=== PATIENT | female | born 1945 | race Caucasian/White ===

== ENCOUNTER → 2016-11-04 | Outpatient (CLI) | payer MEDICARE, OTHER ==
[~2016-11-04] MED LIST: ASP81TEC PO; ASPI-892; ASPI81TA19 PO; BISO1TAB PO; BISO1TAB6; BISO5TAB8 PO; CEPH500C PO; CITA10TA PO; CITA20TA12 PO; CITA40TA19 PO; CLOP75TA; CLPD75T PO; CODE-54 PO; ESCT10T; FEXO-104 PO; FEXO180T; FOLI1TAB9 PO; FRSM40T PO; HYDR1TAB PO; INSU100C4 SQ; INSU100V6; LEVE1U SQ; LEVO250T46; METF-380 PO; METF1000 PO; METF500T; METO100T PO; MTF500T PO; MTP25TSR PO; MULT-608; MULT-608 PO; MULT1TAB5 PO; NITR0.4T SL; ONDA4TAB11 PO; POTA10CA43 PO; SIMV20TA3 PO; SIMV40TA2; SIMV40TA4 PO; SITA100T PO; SITA1TAB6 PO; SITA25TA PO
--- OUTSIDE RECORDS SUMMARY | 2016-11-04 10:54 | XMS REPORT | Continuity of Care Document ---
Author Author [facility] Organization [facility] Address Unknown Phone Unavailable Care Team Providers Care Prefabricator Name Role Phone AYAH DARNELL MD PCP Insurance Providers Payer Name Policy Number Subscriber Name Relationship s Medicare [id number] Ac Garcia 19 Self / Same As Patient [facility] [place] [id number] Ac Garcia 18 Self / Same As Patient Advance Directives Directive Response Recorded Date/Time Advance Directives Yes 01/06/15 7:34am Health Care Power of Manager Marketing Sales No 01/06/15 7:34am Organ Donor No 01/06/15 7:34am Resuscitation Status Full Code 01/06/15 7:34am Problems No known problems or medical conditions. Medications Medication Dose Route Sig Days/Qty Instructions Order Date Discontinued Date Status Aspirin 08/18/09 09/08/11 Discontinued Clopidogrel Bisulfate 08/18/09 09/08/11 Discontinued Bisoprolol Fumarate/HCTZ 08/18/09 11/23/11 Discontinued Simvastatin 08/18/09 11/23/11 Discontinued Metformin HCl 08/18/09 09/08/11 Discontinued Insulin Glargine,Hum.rec.anlog 08/18/09 11/23/11 Discontinued Fexofenadine HCl 08/18/09 11/23/11 Discontinued Multivitamins 08/18/09 11/23/11 Discontinued Escitalopram Oxalate 08/18/09 11/23/11 Discontinued Metformin HCl (Glucophage) 1 Each PO DAILY 09/08/11 09/08/11 Discontinued Aspirin 81 Mg PO DAILY 09/08/11 11/23/11 Discontinued Multiv,Ca,Iron,Min/Fa/Phytoste 1 Each PO DAILY 09/08/11 09/08/11 Discontinued Metoprolol Tartrate 1 Each PO DAILY 09/08/11 09/08/11 Discontinued Furosemide 40 Mg PO weekly 09/08/11 11/23/11 Discontinued Potassium Chloride (Micro K) 1 Each PO weekly 09/08/11 11/23/11 Discontinued Sitagliptin Phos/Metformin Hcl 1 Each PO TWICE A DAY WITH MEALS 09/0811/23/11 Discontinued Metformin HCl (Glucophage) 1 Each PO TWICE A DAY WITH MEALS 11/23/11 01/06/15 Discontinued Fexofenadine HCl 180 Mg PO DAILY 11/23/11 Active Bisoprolol Fumarate 5 Mg PO DAILY 11/23/11 01/06/15 Discontinued Simvastatin 20 Mg PO BEDTIME 11/23/11 01/06/15 Discontinued Citalopram Hydrobromide 10 Mg PO DAILY 11/23/11 01/06/15 Discontinued Sitagliptin Phosphate 1 Each PO DAILY 11/23/11 01/06/15 Discontinued Insulin Glargine,Hum.rec.anlog 36 Unit SQ AM 11/23/11 01/06/15 Discontinued Multivitamins 1 Tab PO DAILY 11/23/11 01/06/15 Discontinued Aspirin 81 Mg PO DAILY 11/23/11 01/06/15 Discontinued Cephalexin Monohydrate (Keflex) 1 Each PO THREE TIMES A DAY 7 Days 27/0908/13/12 Discontinued Acetaminophen/Hydrocodone Bitart 1 - 2 Each PO Q4HR PRN 30 Qty 08/13/12 Discontinued Acetaminophen/Codeine Phosphate 1 - 2 Tab PO EVERY 6 HOURS PRN 45 Qty 08/13/12 08/16/12 Discontinued Ondansetron 4 Mg PO EVERY 6 HOURS PRN 15 Qty 08/13/12 08/16/12 Discontinued Simvastatin 40 Mg PO DAILY 01/06/15 Active Sitagliptin Phosphate 100 Mg PO DAILY 01/06/15 Active Metformin Hcl 1,000 Mg PO TWICE A DAY 01/06/15 Active Bisoprol/Hydrochlorothiazide 0.5 Mg PO DAILY TAKES 1/2 (10-6.25MG) TABLET 01/06/15 01/06/15 Discontinued Folic Acid/Mv,Fe,Other Min 1 Tab.chew PO DAILY 01/06/15 Active Aspirin 81 Mg PO DAILY 01/06/15 Active Insulin Detemir 12 Unit SQ BEDTIME 01/06/15 Active Insulin Detemir 50 Unit SQ DAILY 01/06/15 Active Nitroglycerin 0.4 Mg SL DIRECTED PRN CHEST PAIN CHEST PAIN Active Citalopram Hydrobromide 40 Mg PO DAILY 01/06/15 Active Metoprolol Succinate (Metoprolol ER 25mg) 12.5 Mg PO DAILY 01/06/15 Active Clopidogrel Bisulfate 75 Mg PO DAILY 30 Qty 01/07/15 Active Social History Social History Problem Response Recorded Date/Time Recent Foreign Travel No 01/06/2015 7:34am Smoking Status Never a Smoker 01/06/2015 7:35am Do you dip or chew tobacco? No 01/06/2015 7:35am Query Response Start Date Stop Date Smoking Status Never a Smoker Hospital Discharge Instructions No hospital discharge instructions. Plan of Care No plan of care. Functional Status Query Response Date Recorded Comprehension Ability Understands Concepts January 07, 2015 8:00am Allergies, Adverse Reactions, Alerts Allergen Type Severity Reaction Status Last Updated propoxyphene HCl Adverse Reaction Mild NAUSEA Active 11/28/11 Codeine Allergy N/V Active 08/16/12 Immunizations Name Given Type Date of Influenza Vaccine 07/02/12 Historical pneumococcal polysaccharide PPV23 01/07/15 Administered Vital Signs Acute Vital Signs Vital Response Date/Time Temperature (Fahrenheit) 97.4 degrees F (97.6 - 99.5) Temperature (Calculated Celsius) 36.93797 degrees C (36.4 - 37.5) Temperature Source Tympanic Pulse Rate (adult) 72 bpm (60 - 90) Respiratory Rate 20 bpm (12 - 24) O2 Sat by Pulse Oximetry 96 % (88 - 100) Blood Pressure 143/87 mm Hg Pain Pain Intensity 0 Height (Feet) 5 feet Height (Inches) 9.00 inches Height (Calculated Centimeters) 175.522449 cm Weight (Pounds) 218 pounds Weight (Calculated Grams) 44937.138 gm Weight (Calculated Kilograms) 98.077702 kilograms Calculated BMI 32.19 Results Laboratory Results Test Name Result Units Flags Reference Collection Date/Time Result Date/ Time Comments White Blood Count 4.5 10^3/uL 4.3-11.0 01/07/2015 5:01/07/2015 6: 18am Red Blood Count 4.03 10^6/uL L 4.35-5.85 01/07/2015 5:01/07/2015 6: 18am Hemoglobin 12.6 G/DL 11.5-16.0 01/07/2015 5:01/07/2015 6:18am Hematocrit 37 % 35-52 01/07/2015 5:01/07/2015 6:18am Mean Corpuscular Volume 93 FL 80-99 01/07/2015 5:01/07/2015 6: 18am Mean Corpuscular Hemoglobin 31 PG 25-34 01/07/2015 5:01/07/2015 6: 18am Mean Corpuscular Hemoglobin Concent 34 G/DL 32-36 01/07/2015 5:05/2015 6:18am Red Cell Distribution Width 14.0 % 10.0-14.5 01/07/2015 5:2014 6:18am Platelet Count 169 10^3/uL 130-400 01/07/2015 5:01/07/2015 6:18am Mean Platelet Volume 11.2 FL H 7.4-10.4 01/07/2015 5:01/07/2015 6: 18am Prothrombin Time 11.3 SEC L 12.2-14.7 01/06/2015 7:45am 01/06/2015 8: 07am INR Comment 0.8 0.8-1.4 01/06/2015 7:45am 01/06/2015 8:07am INTERPRETIVE DATA SUGGESTED THERAPEUTIC RANGE FOR INR'S: VENOUS THROMBOSIS, PULMONARY EMBOLISM, OR PREVENTION OF SYSTEMIC EMBOLISM (EG. IN ATRIAL FIBRILLATION): 2.0 - 3.0 MECHANICAL PROSTHETIC HEART VALVES: 2.5 - 3.5* *NOTE: INR'S UP TO 4.5 MAY BE NECESSARY IN SELECTED GROUPS OF HIGH RISK PATIENTS. [employer] CONSENSUS CONFERENCE ON ANTITHROMBOTIC THERAPY (2000). Activated Partial Thromboplast Time 28 SEC 24-35 01/06/2015 7:45am 04/2015 8:07am Sodium Level 138 MMOL/L 135-145 01/07/2015 5:01/07/2015 6:25am Potassium Level 4.3 MMOL/L 3.6-5.0 01/07/2015 5:01/07/2015 6:25am Chloride Level 107 MMOL/L 98-107 01/07/2015 5:01/07/2015 6:25am Carbon Dioxide Level 23 MMOL/L 21-32 01/07/2015 5:01/07/2015 6: 25am Blood Urea Nitrogen 13 MG/DL 7-18 01/07/2015 5:01/07/2015 6:25am Creatinine 0.77 MG/DL 0.60-1.30 01/07/2015 5:01/07/2015 6:25am BUN/Creatinine Ratio 17 01/07/2015 5:01/07/2015 6:25am Estimat Glomerular Filtration Rate > 60 01/07/2015 5:2014 6:25am GFR INTERPRETIVE DATA UNITS FOR ESTIMATED GFR (eGFR): mL/min/1.73 M2 REFERENCE RANGE FOR ESTIMATED GFR (eGFR) eGFR NORMAL eGFR >60 MODERATELY DECREASED eGFR 30-59 SEVERLY DECREASED eGFR 15-29 KIDNEY FAILURE <15 (OR DIALYSIS) Glucose Level 232 MG/DL H 70-105 01/07/2015 5:01/07/2015 6:25am Glucometer 221 MG/DL H 70-110 01/07/2015 5:2201/07/2015 5:27am Calcium Level 8.4 MG/DL L 8.5-10.1 01/07/2015 5:01/07/2015 6:25am Total Bilirubin 0.5 MG/DL 0.1-1.0 01/06/2015 7:4501/06/2015 8:13am Alkaline Phosphatase 52 U/L 40-136 01/06/2015 7:4501/06/2015 8:13am Aspartate Amino Transf (AST/SGOT) 25 U/L 5-34 01/06/2015 7:452014 8:13am Alanine Aminotransferase (ALT/SGPT) 32 U/L 0-55 01/06/2015 7:4501/06 8:13am Total Protein 7.0 G/DL 6.4-8.2 01/06/2015 7:45am 01/06/2015 8:13am Albumin 4.1 G/DL 3.2-4.5 01/06/2015 7:45am 01/06/2015 8:13am Triglycerides Level 180 MG/DL H <150 01/06/2015 7:45am 01/06/2015 8:13am Cholesterol Level 156 MG/DL < 200 01/06/2015 7:45am 01/06/2015 8:13am HDL Cholesterol 47 MG/DL 40-60 01/06/2015 7:45am 01/06/2015 8:13am LDL Cholesterol Direct 86 MG/DL 1-129 01/06/2015 7:45am 01/06/2015 8: 13am VLDL Cholesterol 36 MG/DL 5-40 01/06/2015 7:45am 01/06/2015 8:13am Procedures Procedure Status Date Provider(s) Tracing only of electrocardiogram completed 01/06/15 EDA LANG MD [facility] CCDS Tracing only of electrocardiogram completed 01/06/15 EDA LANG MD [facility] CCDS Encounters Encounter Location Date/Time Departed [facility] 01/06/15 7:19am
--- NOTE | 2016-11-08 07:49 | ECHOCARDIOGRAPHY REPORT ---
PROCEDURE PHYSICIAN: EDA BURGESS DATE OF PROCEDURE: 11/04/2016 TWO DIMENSIONAL ECHOCARDIOGRAM REPORT PRIMARY PHYSICIAN: Dr. Hargrove OTHER PHYSICIAN: Dr. Burgess REFERRING PHYSICIAN: ORDERING PHYSICIAN: Tegan Palomo APRN INDICATION FOR THE PROCEDURE: 1. Coronary artery disease. 2. Hypertension. MEASUREMENTS DERIVED VALUES LV DIAMETER (LAX) NORMALS NORMALS Diastolic 4.6 (3.6-5.2) Eject. Fract. (60%+/-6%) Systolic (2.3-3.9) Diastolic Vol. % Shortening (0.22-0.42) Systolic Vol. Aortic Root 3.6 IVS THICKNESS Diastolic 1.2 (0.6-1.1) LVPW THICKNESS Diastolic 1.1 (0.6-1.1) LA DIAMETER Systolic 3.5 (2.1-3.7) DESCRIPTION: Two-dimensional echocardiography shows normal global left ventricular systolic function with normal regional wall motion. Aortic, mitral and tricuspid valve leaflets show good leaflet excursion. There is no significant pericardial effusion. Doppler imaging shows trivial to mild mitral and tricuspid regurgitation. There is no Doppler evidence of any significant valvular stenosis. Pulmonary artery systolic pressure is estimated to be 25 to 30 mmHg. Good subcostal views are not available. The study is not adequate for evaluation for intracardiac shunt. CONCLUSIONS: 1. Normal global left ventricular systolic function with an ejection fraction of 60%. 2. Trivial to mild mitral and tricuspid regurgitation. 3. No evidence of any significant valvular stenosis. 4. Pulmonary artery systolic pressure is estimated to be approximately 25 to 30 mmHg. Job ID: [id number] Dictated Date: 11/07/2016 12:54:40 Financial Institution Manager Date: 11/08/2016 07:44:47 / josé
== END ==
LOC: CARD 10:50
PROVIDERS: ATTEND Nurse Practitioner Family
DX: I25.10 Atherosclerotic heart disease of native coronary artery without angina pectoris (principal); I10 Essential (primary) hypertension; I34.0 Nonrheumatic mitral (valve) insufficiency; I07.1 Rheumatic tricuspid insufficiency
CPT/HCPCS: 93306

== ENCOUNTER → 2017-05-25 | Outpatient (CLI) | payer MEDICARE, OTHER ==
[~2017-05-25] VITALS: Ht 175.3 cm; Wt 105.7 kg
[~2017-05-25] MED LIST changes: +REGADENOSON 0.4 MG/5 ML SYR (LEXISCAN) IV ONE
[2017-05-25] MEDS: CATHETER FLUSH 10 ML SYR IV PRN ×2 (08:22→09:39)
[2017-05-25 09:30] VITALS: BP 151/81
--- NOTE | 2017-05-26 12:19 | STRESS TEST ---
DATE OF SERVICE: 05/25/2017 Baseline images were carried out after injection of 10.49 mCi of Technetium-99m Tetrofosmin. This was followed by 0.4 mg of regadenoson and 29.9 mCi Technetium-99m Tetrofosmin for stress imaging. The electrocardiogram showed sinus rhythm at baseline and it did not change significantly with the regadenoson infusion. A few isolated premature supraventricular contractions were seen. The patient did not report symptoms and tolerated the procedure well. Review of images at rest and following stress does not indicate any distinct perfusion defects consistent with myocardial ischemia or infarction. The diaphragmatic wall of the left ventricle appears attenuated both at rest and following regadenoson infusion, but gated images show normal regional wall motion, including the diaphragmatic wall of the left ventricle. Thus, this appears to be diaphragmatic attenuation due to patient's body habitus. Left ventricular ejection fraction is calculated to be 78%. End-diastolic volume is 42 mL. TID is absent (1.08). CONCLUSIONS: 1. No evidence of significant myocardial ischemia or infarction. 2. Normal regional wall motion. 3. Normal global left ventricular systolic function with a calculated ejection fraction of 78%. 4. Normal left ventricular cavity size. Job ID: [id number] DocumentID: [id number] Dictated Date: 05/26/2017 09:31:18 Aircraft Maintenance Manager Date: 05/26/2017 09:47:52 Dictated By: EDA LANG MD, MA, FACP, FACC,
== END ==
LOC: CARD 08:05
PROVIDERS: ATTEND Nurse Practitioner Family
DX: I25.10 Atherosclerotic heart disease of native coronary artery without angina pectoris (principal); I10 Essential (primary) hypertension; I65.23 Occlusion and stenosis of bilateral carotid arteries; E11.9 Type 2 diabetes mellitus without complications
CPT/HCPCS: 78452; 93017

== ENCOUNTER 2018-03-01 10:56 | Inpatient (IN) | payer MEDICARE, OTHER ==
[~2018-03-01] VITALS: Ht 170.2 cm; Wt 104.9 kg
[~2018-03-01 10:56] MED LIST changes: -REGADENOSON 0.4 MG/5 ML SYR (LEXISCAN) IV ONE
[2018-03-01 11:49] LABS: BASOPHILS % (AUTO) 0 % (0-10); EOSINOPHILS # (AUTO) 0.1 10^3/uL (0.0-0.3); EOSINOPHILS % (AUTO) 2 % (0-10); HEMATOCRIT 39 % (35-52); HEMOGLOBIN 13.5 G/DL (11.5-16.0); LYMPHOCYTES # (AUTO) 1.1 X 10^3 (1.0-4.0); LYMPHOCYTES % (AUTO) 23 % (12-44); MEAN CORPUSCULAR HEMOGLOBIN 32 PG (25-34); MEAN CORPUSCULAR HGB CONC 34 G/DL (32-36); MEAN CORPUSCULAR VOLUME 93 FL (80-99); MEAN PLATELET VOLUME 10.8 FL (7.4-10.4); MONOCYTES # (AUTO) 0.5 X 10^3 (0.0-1.0); MONOCYTES % (AUTO) 10 % (0-12); NEUTROPHILS # (AUTO) 2.9 X 10^3 (1.8-7.8); NEUTROPHILS % (AUTO) 64 % (42-75); PLATELET COUNT 180 10^3/uL (130-400); RED BLOOD COUNT 4.22 10^6/uL (4.35-5.85); RED CELL DISTRIBUTION WIDTH 13.9 % (10.0-14.5); WHITE BLOOD COUNT 4.6 10^3/uL (4.3-11.0)
[2018-03-01 11:51] LABS: BILIRUBIN,URINE NEGATIVE (NEGATIVE); CLARITY,URINE CLEAR; COLOR,URINE YELLOW; GLUCOSE, URINE (UA) 3+ (NEGATIVE); KETONES,URINE NEGATIVE (NEGATIVE); LEUKOCYTE ESTERASE ,URINE NEGATIVE (NEGATIVE); NITRITE,URINE POSITIVE (NEGATIVE); PH,URINE 5 (5-9); PROTEIN,URINE 1+ (NEGATIVE); UROBILINOGEN,URINE NORMAL (NORMAL)
[2018-03-01 11:58] LABS: BACTERIA,URINE LARGE /HPF
[2018-03-01 12:03] LABS: FIBRIN DEGRADATION PRODUCTS 1.79 UG/ML (0.00-0.49); PROTHROMBIN TIME PATIENT 13.1 SEC (12.2-14.7)
[2018-03-01 12:06] LABS: ALANINE AMINOTRANSFERASE 30 U/L (0-55); ALKALINE PHOSPHATASE 64 U/L (40-136); BILIRUBIN,TOTAL 0.6 MG/DL (0.1-1.0); BUN/CREATININE RATIO 18; CALCIUM 9.1 MG/DL (8.5-10.1); CARBON DIOXIDE 23 MMOL/L (21-32); CHLORIDE 103 MMOL/L (98-107); CREATININE SERUM 1.01 MG/DL (0.60-1.30); GFR ESTIMATED 54; GLUCOSE 372 MG/DL (70-105); POTASSIUM 4.5 MMOL/L (3.6-5.0); SODIUM 136 MMOL/L (135-145); TOTAL PROTEIN 6.3 GM/DL (6.4-8.2)
--- NOTE | 2018-03-01 12:20 | Diagnostic Imaging Report ---
INDICATION: Depressed level of consciousness and confusion. Comparison is made with prior head CT from 05/13/2016. The ventricular size and sulcal pattern appear stable. Significant periventricular hypodensity is noted consistent with chronic microvascular ischemia. 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 This, however, did occur since the CT from May 2016. Probable infarct in the right carrillo radiata is again noted and similar to prior CT. No sulcal effacement, midline shift or hemorrhage is detected. Cisterns are patent. The visualized paranasal sinuses are clear. IMPRESSION: Chronic changes bilaterally. No acute intracranial process is detected. Results were called to the emergency department prior to this dictation. Dictated by: Dictated on workstation # [id number]
--- NOTE | 2018-03-01 12:31 | Diagnostic Imaging Report ---
INDICATION: Altered mental status, confusion. TECHNIQUE: Single frontal view of the chest. COMPARISON: 05/13/2016 FINDINGS: There is elevation of the right hemidiaphragm, otherwise lung volumes are normal. There is mild cardiomegaly with mild central vascular congestion. Sternotomy wires and post CABG changes are seen. There is no pleural effusion or pneumothorax. No focal pulmonary consolidation is seen. IMPRESSION: Mild cardiomegaly with mild central vascular congestion. Dictated by: Dictated on workstation # [id number]
[2018-03-01] MEDS ORDERED: cefTRIAXone INJECTION 1,000 MG in NS (IVPB) 50 ML IV ONE (13:15)
--- NOTE | 2018-03-01 13:26 | ED Neurological Problem ---
General Chief Complaint: Neuro-Stroke Like Symptoms Stated Complaint: AMS/CONFUSION Nursing Triage Note: PATIENT BROUGHT HERE BY FRIENDS. PATIENT STATES SHE KNOWS SHE IS CONFUSED. FRIENDS TELL ME THAT SHE IS NOT MAKING SENSE. AFTER QUESTIONING, THE PATIENT IS VERY SLOW TO RESPOND TO QUESTIONS AND DID NOT KNOW WHO THE PRESIDENT WAS, OR THE CURRENT MONTH OR YEAR. NO PHYSICAL SIGNS OF STROKE. LAST KNOWN WELL AT 7PM YESTERDAY. Nursing Sepsis Screen: No Definite Risk Source: patient, old records, other Exam Limitations: no limitations History of Present Illness Date Seen by Provider: March 01, 2018 Time Seen by Provider: 11:18 Initial Comments This 72-year-old woman presents to the emergency room with confusion. She arrived at her friend's home at 10:45 appearing confused. Her statements did not make sense in the context of their conversation. She was last known to be well at approximately 19:00 last night. On my assessment patient appears alert but is somewhat disoriented. When asked about her location she stated "[facility] [place] [facility]". She also stated this was the "6 month". A stroke activation was paged. Patient was not a TPA candidate as her last known well time was well beyond the treatment window. Patient denied any physical symptoms but did admit to feeling a little confused. Her NIH stroke score was 2. Patient does take insulin. Her fingerstick blood sugar on assessment was 355. Allergies and Home Medications Allergies Coded Allergies: codeine (Unverified Allergy, Unknown, N/V, 05/13/16) propoxyphene HCl (Verified Adverse Reaction, Mild, NAUSEA, 11/28/11) Home Medications Aspirin 81 Mg Chew, 81 MG PO DAILY, (Reported) Citalopram Hydrobromide 20 Mg Tablet, 20 MG PO DAILY, (Reported) Clopidogrel Bisulfate 75 Mg Tab, 75 MG PO DAILY Prescribed by: RAFAEL POLANCO on 01/07/15 0943 Fexofenadine Hcl 180 Mg Tablet, 180 MG PO DAILY, (Reported) Folic Acid/Mv,Fe,Other Min 1 Tab.chew Tab.chew, 1 TAB.CHEW PO DAILY, (Reported) Metformin Hcl 1,000 Mg Tablet, 1,000 MG PO BID, (Reported) Metoprolol Succinate 25 Mg Tab, 12.5 MG PO DAILY, (Reported) TAKES 1/2 (25MG) TABLET Nitroglycerin 0.4 Mg Tab.subl, 0.4 MG SL UD PRN for CHEST PAIN, (Reported) PLACE 1 TABLET UNDER TONGUE EVERY 5 MINUTES X 3 DOSES NEEDED FOR CHEST PAIN Simvastatin 40 Mg Tablet, 40 MG PO DAILY, (Reported) Sitagliptin Phosphate 100 Mg Tablet, 100 MG PO DAILY, (Reported) Patient Home Medication List Home Medication List Reviewed: Yes Review of Systems Constitutional: no symptoms reported Eyes: No Symptoms Reported Ears, Nose, Mouth, Throat: no symptoms reported Respiratory: no symptoms reported Cardiovascular: no symptoms reported Gastrointestinal: no symptoms reported Genitourinary: no symptoms reported Musculoskeletal: no symptoms reported Skin: no symptoms reported Psychiatric/Neurological: See HPI Endocrine: No Symptoms Reported Hematologic/Lymphatic: No Symptoms Reported Past Jzljliz-Szdxvm-Etldec Hx Patient Social History Alcohol Use: Regular Use Number of Drinks Today: 0 Alcohol Beverage of Choice: Wine Recreational Drug Use: No Smoking Status: Never a Smoker 2nd Hand Smoke Exposure: No Recent Foreign Travel: No Contact w/Someone Who Travel: No Recent Infectious Disease Expo: No Recent Hopitalizations: No Physical Abuse: No Sexual Abuse: No Immunizations Up To Date Tetanus Booster (TDap): Less than 5yrs Date of Pneumonia Vaccine: Jul 04, 2010 Date of Influenza Vaccine: Jul 02, 2012 Seasonal Allergies Seasonal Allergies: No Past Medical History Surgeries: Yes CABG, Coronary Stent, Orthopedic Respiratory: No Currently Using CPAP: No Currently Using BIPAP: No Cardiac: Yes (Carotid Dz) Coronary Artery Disease, Hypertension Neurological: No : No Reproductive Disorders: No Sexually Transmitted Disease: No Gastrointestinal: No Musculoskeletal: No Endocrine: Yes Diabetes, Insulin dep, Lupus Hearing Impairment: Hard of Hearing Cancer: No Psychosocial: No Nursing Suicide Risk Score: 0 Integumentary: No Blood Disorders: No Family Medical History Diabetes mellitus 19 FATHER G8 BROTHER Neoplasm 19 MOTHER ( with ca of bladder) Physical Exam Vital Signs Vital Signs - First Documented 03/01/18 03/01/18 11:06 12:12 Temp 96.1 Pulse 85 Resp 18 B/P (MAP) 161/87 (111) Pulse Ox 98 O2 Delivery Room Air Capillary Refill : Less Than 3 Seconds General Appearance: WD/WN, no apparent distress HEENT: PERRL/EOMI, normal ENT inspection, pharynx normal Neck: supple, normal inspection Respiratory: lungs clear, normal breath sounds, no respiratory distress, no accessory muscle use Cardiovascular: regular rate, rhythm, no edema, no murmur Gastrointestinal: normal bowel sounds, non tender, soft Extremities: normal inspection, no pedal edema 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 She identifies some objects during the NIH scoring as "monetary exclusions") Crainal Nerves: normal hearing, normal speech, PERRL Coordination/Gait: normal finger to nose Motor/Sensory: no motor deficit, no sensory deficit Skin: normal color, warm/dry Stroke NIH Stroke Scale Assessment Level of Consciousness: 0=Alert (0), Level of Consciousness-Questions: 1= Answers one question (1), LOC Commands: 0=Performs both tasks (0), Visual Morton : 0=No visual loss (0), Facial Movement (Facial Paresis): 0=Normal symmetrical mnt (0), Motor Function-Arms Right: 0=No drift (0), Motor Function-Arms Left: 0= No drift (0), Motor Function-Legs Right: 0=No drift (0), Motor Function-Legs Left: 0=No drift (0), Limb Ataxia: 0=Absent (0), Sensory: 0=Normal:no loss (0), Best Language: 1=Mild to moderat aphasia (1), Dysarthria: 0=Normal (0), Extinction & Inattention: 0=No abnormality (0), Total: 2 Progress/Results/Core Measures Results/Orders Lab Results Laboratory Tests Test 03/01/18 11:22 03/01/18 11:37 03/01/18 11:45 Range/Units Glucometer 355 H 70-110 MG/DL White Blood Count 4.6 4.3-11.0 10^3/uL Red Blood Count 4.22 L 4.35-5.85 10^6/uL Hemoglobin 13.5 11.5-16.0 G/DL Hematocrit 39 35-52 % Mean Corpuscular Volume 93 80-99 FL Mean Corpuscular Hemoglobin 32 25-34 PG Mean Corpuscular Hemoglobin Concent 34 32-36 G/DL Red Cell Distribution Width 13.9 10.0-14.5 % Platelet Count 180 130-400 10^3/uL Mean Platelet Volume 10.8 H 7.4-10.4 FL Neutrophils (%) (Auto) 64 42-75 % Lymphocytes (%) (Auto) 23 12-44 % Monocytes (%) (Auto) 10 0-12 % Eosinophils (%) (Auto) 2 0-10 % Basophils (%) (Auto) 0 0-10 % Neutrophils # (Auto) 2.9 1.8-7.8 X 10^3 Lymphocytes # (Auto) 1.1 1.0-4.0 X 10^3 Monocytes # (Auto) 0.5 0.0-1.0 X 10^3 Eosinophils # (Auto) 0.1 0.0-0.3 10^3/uL Basophils # (Auto) 0.0 0.0-0.1 10^3/uL Prothrombin Time 13.1 12.2-14.7 SEC INR Comment 1.0 0.8-1.4 Activated Partial Thromboplast Time 29 24-35 SEC D-Dimer 1.79 H 0.00-0.49 UG/ML Sodium Level 136 135-145 MMOL/L Potassium Level 4.5 3.6-5.0 MMOL/L Chloride Level 103 98-107 MMOL/L Carbon Dioxide Level 23 21-32 MMOL/L Anion Gap 10 5-14 MMOL/L Blood Urea Nitrogen 18 7-18 MG/DL Creatinine 1.01 0.60-1.30 MG/DL Estimat Glomerular Filtration Rate 54 BUN/Creatinine Ratio 18 Glucose Level 372 H 70-105 MG/DL Calcium Level 9.1 8.5-10.1 MG/DL Total Bilirubin 0.6 0.1-1.0 MG/DL Aspartate Amino Transf (AST/SGOT) 20 5-34 U/L Alanine Aminotransferase (ALT/SGPT) 30 0-55 U/L Alkaline Phosphatase 64 40-136 U/L Troponin I < 0.30 <0.30 NG/ML Total Protein 6.3 L 6.4-8.2 GM/DL Albumin 4.0 3.2-4.5 GM/DL Urine Color YELLOW Urine Clarity CLEAR Urine pH 5 5-9 Urine Specific [place] 1.020 1.016-1.022 Urine Protein 1+ H NEGATIVE Urine Glucose (UA) 3+ H NEGATIVE Urine Ketones NEGATIVE NEGATIVE Urine Nitrite POSITIVE H NEGATIVE Urine Bilirubin NEGATIVE NEGATIVE Urine Urobilinogen NORMAL NORMAL MG/DL Urine Leukocyte Esterase NEGATIVE NEGATIVE Urine RBC (Auto) NEGATIVE NEGATIVE Urine RBC NONE /HPF Urine WBC 2-5 /HPF Urine Squamous Epithelial Cells 2-5 /HPF Urine Crystals NONE /LPF Urine Bacteria LARGE H /HPF Urine Casts NONE /LPF Urine Mucus NEGATIVE /LPF Urine Culture Indicated YES My Orders Orders - BUCKY NORTH MD Cbc With Automated Diff (03/01/18 11:) Protime With Inr (03/01/18 11:27) Partial Thromboplastin Time (03/01/18 11:) Comprehensive Metabolic Panel (03/01/18:) Fibrin Degradation Products (03/01/18:) Troponin I (03/01/18 11:) Ua Culture If Indicated (03/01/18 11:) Chest 1 View, Ap/Pa Only (03/01/18:) Ekg Tracing (03/01/18:) Nothing By Mouth (03/01/18 Dinner) Accucheck Stat ONCE (03/01/18 11:) Saline Lock/Iv-Start (03/01/18:) Saline Lock/Iv-Start (03/01/18:) Vital Signs Stroke Patient Q15M (03/01/18 11:27) Ct Head Wo-R/O Stroke (03/01/18 11:27) O2 (03/01/18 11:27) Intake & Output 06,14,22 (03/01/18 11:27) Monitor-Rhythm Ecg Trace Only (03/01/18 11:27) Dysphagia Screening Tool (03/01/18 11:) Urine Culture (03/01/18 11:45) Vital Signs/I&O 03/01/18 03/01/18 11:06 12:12 Temp 96.1 Pulse 85 Resp 18 B/P (MAP) 161/87 (111) Pulse Ox 98 97 O2 Delivery Room Air Blood Pressure Mean: 111 FSBG Bedside Testing Finger Stick Blood Glucose: 355 Blood Glucose Action Taken: PHYSICIAN NOTIFIED Progress Progress Note #1: Progress Note Stroke activation was paged as patient has new onset of neurologic symptoms. NIH stroke score was only a 2 and time of onset was well passed treatment window. Therefore, patient was not a TPA candidate. Workup was relatively unremarkable. She did have evidence of urinary tract infection. Rocephin was initiated. Patient was admitted to observation on the hospitalist service. Progress Note #2: Time: 14:[address] King is present in the ER to admit and assess the patient. Initial ECG Impression Date: March 01, 2018 Initial ECG Impression Time: 11:42 Initial ECG Rate: 75 Initial ECG Rhythm: Normal Sinus Initial ECG Impression: Normal Comment Normal sinus rhythm with no ST elevation or depression. No abnormal intervals or axis deviation. Diagnostic Imaging Diagonstic Imaging: CT Plain Films/CT/US/NM/MRI: head Comments CT head viewed by me and report reviewed. See report below: NAME: [facility] REC#: [id number] PT STATUS: REG ER : 1945 PHYSICIAN: BUCKY NORTH MD ADMIT DATE: 03/01/18/ER Draft Date of Exam:03/01/18 CT HEAD WO-R/O STROKE INDICATION: Depressed level of consciousness and confusion. Comparison is made with prior head CT from 05/13/2016. The ventricular size and sulcal pattern appear stable. Significant periventricular hypodensity is noted consistent with chronic microvascular ischemia. 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 This, however, did occur since the CT from May 2016. Probable infarct in the right carrillo radiata is again noted and similar to prior CT. No sulcal effacement, midline shift or hemorrhage is detected. Cisterns are patent. The visualized paranasal sinuses are clear. IMPRESSION: Chronic changes bilaterally. No acute intracranial process is detected. Results were called to the emergency department prior to this dictation. Dictated on workstation # [id number] Dict: 03/01/18 1210 Trans: 03/01/18 1219 [facility] [id number] Interpreted by: SEA NOVA MD Diagonstic Imaging: Xray Plain Films/CT/US/NM/MRI: chest Comments NAME: AC [facility] REC#: [id number] PT STATUS: REG ER : 1945 PHYSICIAN: BUCKY NORTH MD ADMIT DATE: 03/01/18/ER Signed Date of Exam: 03/01/18 CHEST 1 VIEW, AP/PA ONLY INDICATION: Altered mental status, confusion. TECHNIQUE: Single frontal view of the chest. COMPARISON: 05/13/2016 FINDINGS: There is elevation of the right hemidiaphragm, otherwise lung volumes are normal. There is mild cardiomegaly with mild central vascular congestion. Sternotomy wires and post CABG changes are seen. There is no pleural effusion or pneumothorax. No focal pulmonary consolidation is seen. IMPRESSION: Mild cardiomegaly with mild central vascular congestion. Dictated by: Dictated on workstation # [id number] Dict: 03/01/18 1226 Trans: 03/01/18 1257 Interpreted by: NATE TSANG MD Electronically signed by: NATE TSANG MD 03/01/18 1257 Departure Communication (Admissions) Time/Spoke to Admitting Phy: 13:05 Dr. King Impression Primary Impression: Altered mental status Qualified Codes: R41.82 - Altered mental status, unspecified Additional Impressions: Urinary tract infection Qualified Codes: N39.0 - Urinary tract infection, site not specified Hyperglycemia Disposition: 09 ADMITTED INPATIENT Condition: Stable (ERASED) Admissions Decision to Admit Reason: Admit from ER (General) Decision to Admit/Date: March 01, 2018 Time/Decision to Admit Time: 14:12 Departure-Patient Inst. Referrals: AYAH DARNELL MD (PCP/Family) Primary Care Physician BUCKY NORTH MD March 01, 2018 13:26
--- NOTE | 2018-03-01 14:29 | History & Physical-Hospitalist ---
History of Present Illness HPI/Chief Complaint Pt is a72yo CF with a PMH of CAD, IDDMII, and HTN who presented to the ER with chief complaint of confusion. She remains very confused so history is somewhat limited by this. Her friend is at bedside who states the patient picked her up today to go out to breakfast but could not tell her where they were going and thought they were going to a museum. She was not answering questions correctly about what day or year it was so her friend decided to bring her to the hospital. She was activated as a code stroke on arrival but had no focal deficits and NIH was 2 for memory and poor recall. Her CT head was negative but she remained confused. Lab work revealed that she had a UTI as well. Source: patient, family Exam Limitations: clinical condition Date Seen 03/01/18 Time Seen by Provider: 13:30 Attending Physician Lucho King MD PCP Veronica Hargrove MD Referring Physician Date of Admission March 01, 2018 at 13:10 Home Medications & Allergies Home Medications Reviewed patient Home Medication Reconciliation performed by pharmacy medication reconciliations wafer fabrication technician and/or nursing. Patients Allergies have been reviewed. Allergies Allergies Coded Allergies codeine (Unverified Allergy, Unknown, N/V, 05/13/16) propoxyphene HCl (Verified Adverse Reaction, Mild, NAUSEA, 11/28/11) Past Itfaapa-Pwtyil-Reqphl Hx Past Med/Social Hx: Reviewed Nursing Past Med/Soc Hx Patient Social History Alcohol Use: Regular Use Number of Drinks Today: 0 Alcohol Beverage of Choice: Wine Recreational Drug Use: No Smoking Status: Never a Smoker 2nd Hand Smoke Exposure: No Recent Foreign Travel: No Contact w/other who traveled: No Recent Hopitalizations: No Recent Infectious Disease Expo: No Immunizations Up To Date Tetanus Booster (TDap): Less than 5yrs Date of Pneumonia Vaccine: Jul 04, 2010 Date of Influenza Vaccine: Jul 02, 2012 Seasonal Allergies Seasonal Allergies: No Past Medical History Surgeries: CABG, Coronary Stent, Orthopedic Currently Using CPAP: No Currently Using BIPAP: No Cardiac: Coronary Artery Disease, Hypertension : No Reproductive: No Sexually Transmitted Disease: No Endocrine: Diabetes, Insulin dep, Lupus Hearing Impairment: Hard of Hearing History of Blood Disorders: No Family History Reviewed Nursing Family Hx Diabetes mellitus 19 FATHER G8 BROTHER Neoplasm 19 MOTHER ( with ca of bladder) Review of Systems ROS-Unable to Obtain: confusion- so very limited and unsure if accurate Constitutional: No fever, No weakness EENTM: No blurred vision, No double vision, No nose congestion, No throat pain Respiratory: No cough Cardiovascular: No chest pain Gastrointestinal: No abdominal pain, No constipation, No diarrhea; nausea; No vomiting Genitourinary: No dysuria, No frequency Musculoskeletal: No joint pain, No muscle pain Skin: No lesions, No rash Psychiatric/Neurological: Denies Headache, Denies Numbness, Denies Tingling Physical Exam Physical Exam Vital Signs Vital Signs - First Documented 03/01/18 03/01/18 11:06 12:12 Temp 96.1 Pulse 85 Resp 18 B/P (MAP) 161/87 (111) Pulse Ox 98 O2 Delivery Room Air Capillary Refill : Less Than 3 Seconds General Appearance: No Apparent Distress, WD/WN HEENT: PERRL/EOMI, Moist Mucous Membranes Neck: Non Tender, Supple Respiratory: Lungs Clear, No Respiratory Distress Cardiovascular: Regular Rate, Rhythm, No Murmur Gastrointestinal: Normal Bowel Sounds, Non Tender, Soft Extremity: Normal Capillary Refill, No Calf Tenderness Neurologic/Psychiatric: Alert, No Motor/Sensory Deficits, Normal Mood/Affect, Other (oriented to person and place, not to day or year) Skin: Normal Color, Warm/Dry Results Results/Procedures Labs Laboratory Tests 03/01/18 11:37 Patient resulted labs reviewed. Imaging: Reviewed Imaging Report Imaging Date of Exam:03/01/18 CT HEAD WO-R/O STROKE INDICATION: Depressed level of consciousness and confusion. Comparison is made with prior head CT from 05/13/2016. The ventricular size and sulcal pattern appear stable. Significant periventricular hypodensity is noted consistent with chronic microvascular ischemia. 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 This, however, did occur since the CT from May 2016. Probable infarct in the right carrillo radiata is again noted and similar to prior CT. No sulcal effacement, midline shift or hemorrhage is detected. Cisterns are patent. The visualized paranasal sinuses are clear. IMPRESSION: Chronic changes bilaterally. No acute intracranial process is detected. Results were called to the emergency department prior to this dictation. Assessment/Plan Admission Diagnosis Altered Mental Status Admission Status: Observation Diagnosis/Problems Diagnosis/Problems (1) Altered mental status Status: Acute Assessment & Plan: Code stroke activated in the ER- I do not believe this to be a stroke Likely due to UTI Will monitor Qualifiers: Altered mental status type: unspecified Qualified Codes: R41.82 - Altered mental status, unspecified (2) Urinary tract infection Status: Acute Assessment & Plan: Started on Rocephin in the ER Await cultures does not meet sepsis criteria Qualifiers: Urinary tract infection type: site unspecified Hematuria presence: without hematuria Qualified Codes: N39.0 - Urinary tract infection, site not specified (3) Hyperglycemia Status: Acute Assessment & Plan: States she took her insulin though I am not sure that is true Will start on sliding scale insulin and await med rec to find current doses before restarting History of DKA so will watch closely (4) Hypertension Status: Acute Assessment & Plan: Elevated on arrival LUCHO Paiz MD March 01, 2018 14:29
[2018-03-01] MEDS ORDERED: LISI2.5T PO (14:48)
[2018-03-01] MEDS ORDERED: GABA-486 PO (14:48)
[2018-03-01] MEDS ORDERED: CITA40TA11 PO (14:48)
[2018-03-01] MEDS ORDERED: METF500T5 PO (14:48)
[2018-03-01] MEDS ORDERED: SIMV40TA4 PO (14:48)
[2018-03-01] MEDS: inSUlin ASPART (NovoLOG) 1 UNIT/0.01 ML (CHARGE PER UNIT) SC SCH ×3 (14:49→19:29)
[2018-03-01] MEDS ORDERED: INSU100I14 SC (14:59)
[2018-03-01] MEDS ORDERED: INSU300I SC (14:59)
[2018-03-01] MEDS ORDERED: FEXO-45 PO (15:24)
[2018-03-01] MEDS ORDERED: ASPI-983 PO (15:24)
[2018-03-01] MEDS ORDERED: MULT-35 PO (15:27)
[2018-03-01 15:35] VITALS: BP 172/82
[2018-03-01] MEDS ORDERED: ANTACID SUSP 30 ML UDC (MYLANTA) PO PRN (16:00)
[2018-03-01] MEDS ORDERED: ONDANSETRON 4 MG/2 ML (SDV) Z0FRAN IV PRN (16:00)
[2018-03-01] MEDS ORDERED: MILK OF MAGNESIA 400 MG/5 ML 30 ML UDC PO PRN (16:00)
[2018-03-01] MEDS ORDERED: MELATONIN 3 MG TABLET PO PRN (16:00)
[2018-03-01] MEDS ORDERED: ACETAMINOPHEN 325 MG TABLET/CAPLET (TYLENOL) PO PRN (16:15)
--- OUTSIDE RECORDS SUMMARY | 2018-03-01 17:47 | XMS REPORT | Continuity of Care Document ---
Author Author [facility] Address Unknown Phone Unavailable Allergies Active Description Code Type Severity Reaction Onset Reported/Identified Relationship to Patient Clinical Status Yes GATIFLOXACIN UNKNOWN UNKNOWN Yes PROPOXYPHENE UNKNOWN UNKNOWN Yes propoxyphene HCl [id number] Drug Allergy Mild NAUSEA 11/28/2011 Yes codeine [id number] Drug Allergy Unknown N/V 05/13/2016 Medications There is no data. Problems Date Dx Coded Attending Type Code Diagnosis Diagnosed By 11/28/2011 Ot 726.73 CALCANEAL SPUR 11/28/2011 Ot 728.71 PLANTAR FIBROMATOSIS 08/13/2012 Ot 823.82 FX TIBIA W FIBULA NOS-CL 08/13/2012 Ot 824.4 FX BIMALLEOLAR-CLOSED 08/13/2012 Ot 959.7 LOWER LEG INJURY NOS 08/13/2012 Ot E000.8 OTHER EXTERNAL CAUSE STATUS 08/13/2012 Ot E849.0 ACCIDENT IN HOME 08/13/2012 Ot E888.9 FALL NOS 08/20/2012 Ot 824.4 FX BIMALLEOLAR-CLOSED 08/20/2012 Ot E000.8 OTHER EXTERNAL CAUSE STATUS 08/20/2012 Ot E849.0 ACCIDENT IN HOME 08/20/2012 Ot E885.9 FALL FROM SLIPPING, TRIPPING, OR STUMBLI 08/20/2012 Ot V64.3 NO PROC FOR REASONS NEC 09/14/2012 Ot 682.9 CELLULITIS NOS 10/09/2012 Ot V58.43 AFTERCARE POST SURGERY INJURY/TRAUMA 12/10/2012 Ot V54.16 AFTERCARE HEALING TRAUMATIC FX LOWER LEG 12/10/2012 Ot V57.1 PHYSICAL THERAPY NEC 12/14/2012 Ot V54.89 OTHER ORTHOPEDIC AFTERCARE 01/06/2015 Ot 250.00 01/06/2015 Ot 272.4 01/06/2015 Ot 401.9 01/06/2015 Ot 414.00 01/06/2015 Ot 447.9 01/07/2015 RICKEY ARAMBULA FACC, EDA FACP CCDS Ot 250.00 DIAB AMEE WO COMPL, TYPE II OR UNSPEC TY 01/07/2015 RICKEY ARAMBULA FACC, EDA FACP CCDS Ot 272.4 HYPERLIPIDEMIA NEC/NOS 01/07/2015 RICKEY ARAMBULA FACC, ALI FACP CCDS Ot 401.9 HYPERTENSION NOS 01/07/2015 RICKEY ARAMBULA FACC, ALI FACP CCDS Ot 414.01 CORONARY ATHEROSCLEROSIS OF [place] CORON 01/07/2015 RICKEY ARAMBULA FACC, ALI FACP CCDS Ot 414.02 CORON ATHEROSCLEROSIS AUTOLOG VEIN BYPAS 01/07/2015 RICKEY ARAMBULA FACC, EDA FACP CCDS Ot 414.2 CHRONIC TOTAL OCCLUSION OF CORONARY [place] 01/07/2015 RICKEY ARAMBULA FACC, EDA FACP CCDS Ot 433.10 CAROTID ARTERY OCCLUSION W O CEREBRAL IN 01/07/2015 RICKEY ARAMBULA FACC, ALI FACP CCDS Ot 996.72 01/07/2015 RICKEY ARAMBULA FACC, EDA FACP CCDS Ot V03.82 PROPHYLACTIC VACC AGAINST STREPTOCOCCUS 01/07/2015 RICKEY ARAMBULA FACC, EDA FACP CCDS Ot V45.81 AORTOCORONARY BYPASS 01/13/2015 RICKEY ARAMBULA FACC, EDA FACP CCDS Ot 250.00 01/13/2015 RICKEY ARAMBULA FACC, EDA FACP CCDS Ot 272.4 01/13/2015 RICKEY ARAMBULA FACC, EDA FACP CCDS Ot 401.9 01/13/2015 RICKEY ARAMBULA FACC, ALI FACP CCDS Ot 414.01 01/13/2015 RICKEY ARAMBULA FACC, EDA FACP CCDS Ot 433.10 01/13/2015 RICKEY ARAMBULA FACC, ALI FACP CCDS Ot 996.72 01/13/2015 RICKEY ARAMBULA FACC, ALI FACP CCDS Ot V03.82 01/13/2015 RICKEY ARAMBULA FACC, ALI FACP CCDS Ot V45.81 05/13/2016 Ot 414.00 CORON ATHEROSCLER NOS TYPE VESSEL, NATIV 05/13/2016 Ot 786.09 RESPIRATORY ABNORM NEC 05/13/2016 Ot V45.81 AORTOCORONARY BYPASS 05/13/2016 Ot 414.00 CORON ATHEROSCLER NOS TYPE VESSEL, NATIV 05/13/2016 Ot 786.09 RESPIRATORY ABNORM NEC 05/13/2016 Ot V45.81 AORTOCORONARY BYPASS 05/13/2016 Ot 728.71 PLANTAR FIBROMATOSIS 05/13/2016 Ot V72.81 EXAM-PRE- OPERATIVE CARDIOVASCULAR 05/13/2016 Ot V74.8 SCREEN- BACTERIAL DIS NEC 05/13/2016 Ot 823.82 FX TIBIA W FIBULA NOS-CL 05/13/2016 Ot 824.4 FX BIMALLEOLAR-CLOSED 05/13/2016 Ot E000.8 OTHER EXTERNAL CAUSE STATUS 05/13/2016 Ot E849.0 ACCIDENT IN HOME 05/13/2016 Ot E888.9 FALL NOS 05/13/2016 Ot V72.83 EXAM PRE- OPERATIVE NEC 05/13/2016 Ot V74.8 SCREEN- BACTERIAL DIS NEC 05/13/2016 Ot 250.00 DIAB AMEE WO COMPL, TYPE II OR UNSPEC TY 05/13/2016 Ot 272.4 HYPERLIPIDEMIA NEC/NOS 05/13/2016 Ot 401.9 HYPERTENSION NOS 05/13/2016 Ot 414.00 CORON ATHEROSCLER NOS TYPE VESSEL, NATIV 05/13/2016 Ot 447.9 ARTERIAL DISEASE NOS 05/13/2016 Ot 414.00 CORON ATHEROSCLER NOS TYPE VESSEL, NATIV 05/13/2016 Ot 786.09 RESPIRATORY ABNORM NEC 05/13/2016 Ot V45.81 AORTOCORONARY BYPASS 05/13/2016 Ot 414.00 CORON ATHEROSCLER NOS TYPE VESSEL, NATIV 05/13/2016 Ot 786.09 RESPIRATORY ABNORM NEC 05/13/2016 Ot V45.81 AORTOCORONARY BYPASS 05/13/2016 Ot 728.71 PLANTAR FIBROMATOSIS 05/13/2016 Ot V72.81 EXAM-PRE- OPERATIVE CARDIOVASCULAR 05/13/2016 Ot V74.8 SCREEN- BACTERIAL DIS NEC 05/13/2016 Ot 823.82 FX TIBIA W FIBULA NOS-CL 05/13/2016 Ot 824.4 FX BIMALLEOLAR-CLOSED 05/13/2016 Ot E000.8 OTHER EXTERNAL CAUSE STATUS 05/13/2016 Ot E849.0 ACCIDENT IN HOME 05/13/2016 Ot E888.9 FALL NOS 05/13/2016 Ot V72.83 EXAM PRE- OPERATIVE NEC 05/13/2016 Ot V74.8 SCREEN- BACTERIAL DIS NEC 05/13/2016 Ot 250.00 DIAB AMEE WO COMPL, TYPE II OR UNSPEC TY 05/13/2016 Ot 272.4 HYPERLIPIDEMIA NEC/NOS 05/13/2016 Ot 401.9 HYPERTENSION NOS 05/13/2016 Ot 414.00 CORON ATHEROSCLER NOS TYPE VESSEL, NATIV 05/13/2016 Ot 447.9 ARTERIAL DISEASE NOS 05/15/2016 WILBUR HOWELL DO Ot E11.65 TYPE 2 DIABETES MELLITUS WITH HYPERGLYCE 05/15/2016 WILBUR HOWELL DO Ot E78.5 HYPERLIPIDEMIA, UNSPECIFIED 05/15/2016 HOWELLWILBUR SARGENT DO Ot F41.9 ANXIETY DISORDER, UNSPECIFIED 05/15/2016 WILBUR HOWELL DO Ot I10 ESSENTIAL (PRIMARY) HYPERTENSION 05/15/2016 WILBUR HOWELL DO Ot I25.10 ATHSCL HEART DISEASE OF [place] CORONARY 05/15/2016 WILBUR HOWELL DO Ot K30 FUNCTIONAL DYSPEPSIA 05/15/2016 WILBUR HOWELL DO Ot M32.9 SYSTEMIC LUPUS ERYTHEMATOSUS, UNSPECIFIE 05/15/2016 WILBUR HOWELL DO Ot Z79.4 GROUP HOME (CURRENT) USE OF INSULIN 05/15/2016 WILBUR HOWELL DO Ot Z95.1 PRESENCE OF AORTOCORONARY BYPASS GRAFT 05/15/2016 WILBUR HOWELL DO Ot Z95.5 PRESENCE OF CORONARY ANGIOPLASTY IMPLANT 11/01/2016 Ot 414.00 CORON ATHEROSCLER NOS TYPE VESSEL, NATIV 11/01/2016 Ot 786.09 RESPIRATORY ABNORM NEC 11/01/2016 Ot V45.81 AORTOCORONARY BYPASS 11/01/2016 Ot 414.00 CORON ATHEROSCLER NOS TYPE VESSEL, NATIV 11/01/2016 Ot 786.09 RESPIRATORY ABNORM NEC 11/01/2016 Ot V45.81 AORTOCORONARY BYPASS 11/01/2016 Ot 728.71 PLANTAR FIBROMATOSIS 11/01/2016 Ot V72.81 EXAM-PRE- OPERATIVE CARDIOVASCULAR 11/01/2016 Ot V74.8 SCREEN- BACTERIAL DIS NEC 11/01/2016 Ot 823.82 FX TIBIA W FIBULA NOS-CL 11/01/2016 Ot 824.4 FX BIMALLEOLAR-CLOSED 11/01/2016 Ot E000.8 OTHER EXTERNAL CAUSE STATUS 11/01/2016 Ot E849.0 ACCIDENT IN HOME 11/01/2016 Ot E888.9 FALL NOS 11/01/2016 Ot V72.83 EXAM PRE- OPERATIVE NEC 11/01/2016 Ot V74.8 SCREEN- BACTERIAL DIS NEC 11/01/2016 Ot 250.00 DIAB AMEE WO COMPL, TYPE II OR UNSPEC TY 11/01/2016 Ot 272.4 HYPERLIPIDEMIA NEC/NOS 11/01/2016 Ot 401.9 HYPERTENSION NOS 11/01/2016 Ot 414.00 CORON ATHEROSCLER NOS TYPE VESSEL, NATIV 11/01/2016 Ot 447.9 ARTERIAL DISEASE NOS 11/07/2016 BAIMA, RAFAEL L SENIOR HARDWARE ENGINEER Ot 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 TRICUSPID INSUFFICIENCY 11/07/2016 BAIMA, RAFAEL L SENIOR HARDWARE ENGINEER Ot I10 ESSENTIAL (PRIMARY) HYPERTENSION 11/07/2016 BAIMA, RAFAEL L SENIOR HARDWARE ENGINEER Ot I25.10 ATHSCL HEART DISEASE OF [place] CORONARY 11/07/2016 BAIMA, RAFAEL L SENIOR HARDWARE ENGINEER Ot I34.0 NONRHEUMATIC MITRAL (VALVE) INSUFFICIENC 11/07/2016 BAIMA, RAFAEL L SENIOR HARDWARE ENGINEER Ot 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 TRICUSPID INSUFFICIENCY 11/07/2016 BAIMA, RAFAEL L SENIOR HARDWARE ENGINEER Ot I10 ESSENTIAL (PRIMARY) HYPERTENSION 11/07/2016 BAIMA, RAFAEL L SENIOR HARDWARE ENGINEER Ot I25.10 ATHSCL HEART DISEASE OF [place] CORONARY 11/07/2016 BAIMA, RAFAEL L SENIOR HARDWARE ENGINEER Ot I34.0 NONRHEUMATIC MITRAL (VALVE) INSUFFICIENC 11/07/2016 BAIMA, RAFAEL L SENIOR HARDWARE ENGINEER Ot 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 TRICUSPID INSUFFICIENCY 11/07/2016 BAIMA, RAFAEL L SENIOR HARDWARE ENGINEER Ot I10 ESSENTIAL (PRIMARY) HYPERTENSION 11/07/2016 BAIMA, RAFAEL L SENIOR HARDWARE ENGINEER Ot I25.10 ATHSCL HEART DISEASE OF [place] CORONARY 11/07/2016 BAIMA, RAFAEL L SENIOR HARDWARE ENGINEER Ot I34.0 NONRHEUMATIC MITRAL (VALVE) INSUFFICIENC 11/28/2016 BAIMA, RAFAEL L SENIOR HARDWARE ENGINEER Ot 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 TRICUSPID INSUFFICIENCY 11/28/2016 BAIMA, RAFAEL L SENIOR HARDWARE ENGINEER Ot I10 ESSENTIAL (PRIMARY) HYPERTENSION 11/28/2016 BAIMA, RAFAEL L SENIOR HARDWARE ENGINEER Ot I25.10 ATHSCL HEART DISEASE OF [place] CORONARY 11/28/2016 BAIMA, RAFAEL L SENIOR HARDWARE ENGINEER Ot I34.0 NONRHEUMATIC MITRAL (VALVE) INSUFFICIENC 12/01/2016 BAIMA, RAFAEL L SENIOR HARDWARE ENGINEER Ot 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 TRICUSPID INSUFFICIENCY 12/01/2016 BAIMA, RAFAEL L SENIOR HARDWARE ENGINEER Ot I10 ESSENTIAL (PRIMARY) HYPERTENSION 12/01/2016 BAIMA, RAFAEL L SENIOR HARDWARE ENGINEER Ot I25.10 ATHSCL HEART DISEASE OF [place] CORONARY 12/01/2016 COLLIN, RAFAEL L SENIOR HARDWARE ENGINEER Ot I34.0 NONRHEUMATIC MITRAL (VALVE) INSUFFICIENC 12/31/2016 Veronica Hargrove A 724.5 BACKACHE, UNSPECIFIED 12/31/2016 Veronica Hargrove M54.9 DORSALGIA, UNSPECIFIED 05/26/2017 BAIMA, RAFAEL L SENIOR HARDWARE ENGINEER Ot E11.9 TYPE 2 DIABETES MELLITUS WITHOUT COMPLIC 05/26/2017 BAIMA, RAFAEL L SENIOR HARDWARE ENGINEER Ot I10 ESSENTIAL (PRIMARY) HYPERTENSION 05/26/2017 BAIMA, RAFAEL L SENIOR HARDWARE ENGINEER Ot I25.10 ATHSCL HEART DISEASE OF [place] CORONARY 05/26/2017 BAIMA, RAFAEL L SENIOR HARDWARE ENGINEER Ot I65.23 OCCLUSION AND STENOSIS OF BILATERAL [place] 06/16/2017 BAIMA, RAFAEL L SENIOR HARDWARE ENGINEER Ot E11.9 TYPE 2 DIABETES MELLITUS WITHOUT COMPLIC 06/16/2017 BAIMA, RAFAEL L SENIOR HARDWARE ENGINEER Ot I10 ESSENTIAL (PRIMARY) HYPERTENSION 06/16/2017 BAIMA, RAFAEL L SENIOR HARDWARE ENGINEER Ot I25.10 ATHSCL HEART DISEASE OF [place] CORONARY 06/16/2017 BAIMA, RAFAEL L SENIOR HARDWARE ENGINEER Ot I65.23 OCCLUSION AND STENOSIS OF [place]ATERAL [place] 06/20/2017 BAIMA, RAFAEL L SENIOR HARDWARE ENGINEER Ot E11.9 TYPE 2 DIABETES MELLITUS WITHOUT COMPLIC 06/20/2017 BAIMA, RAFAEL L SENIOR HARDWARE ENGINEER Ot I10 ESSENTIAL (PRIMARY) HYPERTENSION 06/20/2017 BAIMA, RAFAEL L SENIOR HARDWARE ENGINEER Ot I25.10 ATHSCL HEART DISEASE OF [place] CORONARY 06/20/2017 BAIMA, RAFAEL L SENIOR HARDWARE ENGINEER Ot I65.23 OCCLUSION AND STENOSIS OF [place] 07/19/2017 Veronica Hargrove A 724.1 PAIN IN THORACIC SPINE 07/19/2017 Marlin Hargrovea A M54.6 PAIN IN THORACIC SPINE 07/19/2017 Delvin Veronica A 724.1 PAIN IN THORACIC SPINE 07/19/2017 Delvin, Veronica A M54.6 PAIN IN THORACIC SPINE 01/11/2018 Delvin Veronica W 782.3 EDEMA 01/11/2018 Delvin Veronica W R60.0 LOCALIZED EDEMA 01/11/2018 Delvin Veronica W 782.3 EDEMA 01/11/2018 Marlin Hargrovea W R60.0 LOCALIZED EDEMA 01/12/2018 Delvin, Veronica W 782.3 EDEMA 01/12/2018 Delvin, Veronica W R60.0 LOCALIZED EDEMA 01/12/2018 Delvin, Veronica W 782.3 EDEMA 01/12/2018 Delvin, Veronica W R60.0 LOCALIZED EDEMA Procedures There is no data. Results Test Result Range Complete blood count (CBC) with automated white blood cell (WBC) differential - 05/13/16 16:08 Blood leukocytes automated count (number/volume) 6.0 10*3/uL 4.3-11.0 Blood erythrocytes automated count (number/volume) 4.61 10*6/uL 4.35-5.85 Venous blood hemoglobin measurement (mass/volume) 14.3 g/dL 11.5-16.0 Blood hematocrit (volume fraction) 42 % 35-52 Automated erythrocyte mean corpuscular volume 90 [foz_us] 80-99 Automated erythrocyte mean corpuscular hemoglobin (mass per erythrocyte) 31 pg 25-34 Automated erythrocyte mean corpuscular hemoglobin concentration measurement ( mass/volume) 34 g/dL 32-36 Automated erythrocyte distribution width ratio 13.2 % 10.0-14.5 Automated blood platelet count (count/volume) 188 10*3/uL 130-400 Automated blood platelet mean volume measurement 10.9 [foz_us] 7.4-10.4 Automated blood neutrophils/100 leukocytes 66 % 42-75 Automated blood lymphocytes/100 leukocytes 25 % 12-44 Blood monocytes/100 leukocytes 7 % 0-12 Automated blood eosinophils/100 leukocytes 1 % 0-10 Automated blood basophils/100 leukocytes 0 % 0-10 Blood neutrophils automated count (number/volume) 4.0 10*3 1.8-7.8 Blood lymphocytes automated count (number/volume) 1.5 10*3 1.0-4.0 Blood monocytes automated count (number/volume) 0.4 10*3 0.0-1.0 Automated eosinophil count 0.1 10*3/uL 0.0-0.3 Automated blood basophil count (count/volume) 0.0 10*3/uL 0.0-0.1 Comprehensive metabolic panel - 05/13/16 16:08 Serum or plasma sodium measurement (moles/volume) 131 mmol/L 135-145 Serum or plasma potassium measurement (moles/volume) 4.5 mmol/L 3.6-5.0 Serum or plasma chloride measurement (moles/volume) 97 mmol/L 98-107 Carbon dioxide 22 mmol/L 21-32 Serum or plasma anion gap determination (moles/volume) 12 mmol/L 5-14 Serum or plasma urea nitrogen measurement (mass/volume) 17 mg/dL 7-18 Serum or plasma creatinine measurement (mass/volume) 1.18 mg/dL 0.60-1.30 Serum or plasma urea nitrogen/creatinine mass ratio 14 NRG Serum or plasma creatinine measurement with calculation of estimated glomerular filtration rate 45 NRG Serum or plasma glucose measurement (mass/volume) 516 mg/dL 70-105 Serum or plasma calcium measurement (mass/volume) 9.3 mg/dL 8.5-10.1 Serum or plasma total bilirubin measurement (mass/volume) 0.5 mg/dL 0.1-1.0 Serum or plasma alkaline phosphatase measurement (enzymatic activity/volume) 69 U/L 40-136 Serum or plasma aspartate aminotransferase measurement (enzymatic activity/ volume) 25 U/L 5-34 Serum or plasma alanine aminotransferase measurement (enzymatic activity/volume ) 39 U/L 0-55 Serum or plasma protein measurement (mass/volume) 6.8 g/dL 6.4-8.2 Serum or plasma albumin measurement (mass/volume) 4.2 g/dL 3.2-4.5 Fibrin D-dimer FEU measurement in platelet poor plasma (mass/volume) - 16:08 Fibrin D-dimer FEU measurement in platelet poor plasma (mass/volume) 1.47 ug/mL 0.00-0.49 Serum or plasma troponin i.cardiac measurement (mass/volume) - 05/13/16 16:08 Serum or plasma troponin i.cardiac measurement (mass/volume) < ng/ mL <0.30 Complete urinalysis with reflex to culture - 05/13/16 16:12 Urine color determination YELLOW NRG Urine clarity determination CLEAR NRG Urine pH measurement by test strip 7 5-9 Specific gravity of urine by test strip 1.010 1.016- 1.022 Urine protein assay by test strip, semi-quantitative 1+ NEGATIVE Urine glucose detection by automated test strip 4+ NEGATIVE Erythrocytes detection in urine sediment by light microscopy NEGATIVE NEGATIVE Urine ketones detection by automated test strip 1+ NEGATIVE Urine nitrite detection by test strip NEGATIVE NEGATIVE Urine total bilirubin detection by test strip NEGATIVE NEGATIVE Urine urobilinogen measurement by automated test strip (mass/volume) NORMAL NORMAL Urine leukocyte esterase detection by dipstick NEGATIVE NEGATIVE Automated urine sediment erythrocyte count by microscopy (number/high power field) NONE NRG Automated urine sediment leukocyte count by microscopy (number/high power field ) NONE NRG Bacteria detection in urine sediment by light microscopy NONE NRG Squamous epithelial cells detection in urine sediment by light microscopy 2-5 NRG Crystals detection in urine sediment by light microscopy NONE NRG Casts detection in urine sediment by light microscopy NONE NRG Mucus detection in urine sediment by light microscopy NEGATIVE NRG Complete urinalysis with reflex to culture NO NRG Capillary blood glucose measurement by glucometer (mass/volume) - 05/13/16 16: 19 Capillary blood glucose measurement by glucometer (mass/volume) 439 mg/dL 70-110 Capillary blood glucose measurement by glucometer (mass/volume) - 05/13/16 17: 51 Capillary blood glucose measurement by glucometer (mass/volume) 329 mg/dL 70-110 Capillary blood glucose measurement by glucometer (mass/volume) - 05/13/16 20: 22 Capillary blood glucose measurement by glucometer (mass/volume) 351 mg/dL 70-110 Methicillin resistant Staphylococcus aureus (MRSA) screening culture - 21:15 Methicillin resistant Staphylococcus aureus (MRSA) screening culture NEG NRG Capillary blood glucose measurement by glucometer (mass/volume) - 05/13/16 21: 38 Capillary blood glucose measurement by glucometer (mass/volume) 394 mg/dL 70-110 Comprehensive metabolic panel - 05/14/16 03:59 Serum or plasma sodium measurement (moles/volume) 133 mmol/L 135-145 Serum or plasma potassium measurement (moles/volume) 3.9 mmol/L 3.6-5.0 Serum or plasma chloride measurement (moles/volume) 103 mmol/L 98-107 Carbon dioxide 20 mmol/L 21-32 Serum or plasma anion gap determination (moles/volume) 10 mmol/L 5-14 Serum or plasma urea nitrogen measurement (mass/volume) 14 mg/dL 7-18 Serum or plasma creatinine measurement (mass/volume) 0.92 mg/dL 0.60-1.30 Serum or plasma urea nitrogen/creatinine mass ratio 15 NRG Serum or plasma creatinine measurement with calculation of estimated glomerular filtration rate > NRG Serum or plasma glucose measurement (mass/volume) 288 mg/dL 70-105 Serum or plasma calcium measurement (mass/volume) 8.6 mg/dL 8.5-10.1 Serum or plasma total bilirubin measurement (mass/volume) 0.6 mg/dL 0.1-1.0 Serum or plasma alkaline phosphatase measurement (enzymatic activity/volume) 61 U/L 40-136 Serum or plasma aspartate aminotransferase measurement (enzymatic activity/ volume) 19 U/L 5-34 Serum or plasma alanine aminotransferase measurement (enzymatic activity/volume ) 28 U/L 0-55 Serum or plasma protein measurement (mass/volume) 5.4 g/dL 6.4-8.2 Serum or plasma albumin measurement (mass/volume) 3.5 g/dL 3.2-4.5 Capillary blood glucose measurement by glucometer (mass/volume) - 05/14/16 06: 37 Capillary blood glucose measurement by glucometer (mass/volume) 227 mg/dL 70-110 Capillary blood glucose measurement by glucometer (mass/volume) - 05/14/16 12: 24 Capillary blood glucose measurement by glucometer (mass/volume) 285 mg/dL 70-110 Capillary blood glucose measurement by glucometer (mass/volume) - 05/14/16 15: 22 Capillary blood glucose measurement by glucometer (mass/volume) 325 mg/dL 70-110 Capillary blood glucose measurement by glucometer (mass/volume) - 05/14/16 20: 12 Capillary blood glucose measurement by glucometer (mass/volume) 249 mg/dL 70-110 Capillary blood glucose measurement by glucometer (mass/volume) - 05/15/16 05: 45 Capillary blood glucose measurement by glucometer (mass/volume) 170 mg/dL 70-110 Capillary blood glucose measurement by glucometer (mass/volume) - 05/15/16 10: 23 Capillary blood glucose measurement by glucometer (mass/volume) 234 mg/dL 70-110 Urine Culture - 10/13/16 16:46 PRELIM CULTURE RESULTS 20,000-50,000 Gram Negative SILVIA / ID to Follow MEDIA PLATED Setup at 17:22 on 10/13/2016 CULTURE SOURCE void Sensi - 10/13/16 16:46 FINAL CULTURE RESULTS Escherichia coli (Isolate 1) Ampicillin/Sulbactam 16/8 Ampicillin >16 Amoxicillin/K Clavulanate <=8/4 Ceftriaxone <=8 Ciprofloxacin >2 Nitrofurantoin <=32 Gentamicin <=4 Levofloxacin >4 Trimethoprim/ Sulfamethoxazole >2/38 Tetracycline >8 Amikacin <=16 Aztreonam <=8 Ceftazidime <=1 Ceftazidime/K Clavulanate <=0.25 Cephalothin >16 Cefotaxime <=2 Cefotaxime/K Clavulanate <=0.5 Cefoxitin <=8 Cefazolin <=8 Cefepime <=8 Cefuroxime <=4 Ertapenem <=1 Imipenem <=4 Meropenem <=4 Piperacillin/Tazobactam <=16 Piperacillin >64 Tigecycline <=2 Tobramycin <=4 BMP - 01/11/18 15:28 Anion Gap 15 6-14 BUN 23 mg/dL 5-25 Calcium 9.9 mg/dL 8.3-10.4 Chloride 106 mmol/L 95-114 CO2 24 mEq/L 22-33 Creat 1.02 mg/dL 0.50-1.50 eGFR 53 mL/min/1.73m2 >59 Glucose 158 mg/dL 70-110 Osmo 298 280-295 Potassium 4.4 mmol/L 3.5-5.3 Sodium 141 mmol/L 134-148 Encounters ACCT No. Visit Date/Time Discharge Status Pt. Type Provider Facility Loc./Unit Complaint [id number] 09/29/2014 14:01:22 09/29/2014 23:59:59 CLS Outpatient Gilda Mane [id number] 05/25/2017 08:05:00 05/25/2017 23:59:59 CLS Outpatient RAFAEL POLANCO [facility] CARD CAD I25.10 [id number] 11/04/2016 10:50:00 11/04/2016 23:59:59 CLS Outpatient RAFAEL POLANCO [facility] CARD CAD,HTN,TR [id number] 05/13/2016 20:30:00 05/15/2016 12:50:00 DIS Inpatient WILBUR HOWELL DO [facility] 4TH AMS, HYPERTENSIVE EMERGENCY, HYPERGLYCEMIA [id number] 01/06/2015 07:19:00 01/07/2015 11:25:00 DIS Outpatient RICKEY ARAMBULA FACC, EDA KNOX CCDS [facility] CATH CAD,ANGINA, ABNORMAL STRESS [id number] 01/06/2015 09:45:00 Document Registration [id number] 12/14/2012 09:40:00 Document Registration [id number] 11/19/2012 15:13:00 Document Registration [id number] 10/08/2012 11:25:00 Document Registration [id number] 09/14/2012 14:45:00 Document Registration [id number] 08/20/2012 10:50:00 Document Registration [id number] 08/16/2012 13:21:00 Document Registration [id number] 08/13/2012 09:48:00 Document Registration [id number] 11/28/2011 05:45:00 Document Registration [id number] 11/23/2011 13:05:00 Document Registration [id number] 09/08/2011 08:19:00 Document Registration [id number] 09/05/2011 13:01:00 Document Registration [id number] 01/12/2018 08:55:00 01/12/2018 23:59:00 DIS Outpatient Veronica Hargrove [id number] 01/11/2018 15:23:00 01/11/2018 23:59:00 DIS Outpatient Veronica Hargrove [id number] 12/05/2017 09:18:00 12/05/2017 23:59:00 DIS Outpatient NASEEM KERR [id number] 07/19/2017 00:00:00 07/19/2017 23:59:00 DIS Outpatient Veronica Hargrove [id number] 05/12/2017 10:25:00 06/15/2017 12:55:00 DIS Outpatient Veronica Hargrove [id number] 05/05/2017 09:25:00 05/05/2017 23:59:00 DIS Outpatient Corazon Kirby [id number] 10/13/2016 16:43:00 10/13/2016 23:59:00 DIS Outpatient Veronica Hargrove [id number] 08/18/2016 09:05:00 08/18/2016 23:59:00 DIS Outpatient Veronica Hargrove [id number] 02/08/2018 16:20:00 02/08/2018 23:59:59 CLS Outpatient JYOTSNA FLANNERY [facility]
[2018-03-01 19:30] VITALS: BP 148/70
[2018-03-01] MEDS: SIMvastatin 40 MG (ZOCOR) TAB PO SCH (20:38)
[2018-03-02] VITALS (7 sets, daily range): BP systolic 129–163; BP diastolic 62–81
[2018-03-02] MEDS: inSUlin ASPART (NovoLOG) 1 UNIT/0.01 ML (CHARGE PER UNIT) SC SCH ×7 (05:33→21:50)
[2018-03-02 06:54] LABS: BASOPHILS % (AUTO) 1 % (0-10); EOSINOPHILS # (AUTO) 0.1 10^3/uL (0.0-0.3); EOSINOPHILS % (AUTO) 3 % (0-10); HEMATOCRIT 42 % (35-52); LYMPHOCYTES # (AUTO) 1.4 X 10^3 (1.0-4.0); LYMPHOCYTES % (AUTO) 29 % (12-44); MEAN CORPUSCULAR HEMOGLOBIN 31 PG (25-34); MEAN CORPUSCULAR HGB CONC 34 G/DL (32-36); MEAN CORPUSCULAR VOLUME 93 FL (80-99); MEAN PLATELET VOLUME 10.8 FL (7.4-10.4); MONOCYTES # (AUTO) 0.5 X 10^3 (0.0-1.0); MONOCYTES % (AUTO) 10 % (0-12); NEUTROPHILS # (AUTO) 2.8 X 10^3 (1.8-7.8); NEUTROPHILS % (AUTO) 58 % (42-75); PLATELET COUNT 203 10^3/uL (130-400); RED BLOOD COUNT 4.47 10^6/uL (4.35-5.85); RED CELL DISTRIBUTION WIDTH 14.5 % (10.0-14.5); WHITE BLOOD COUNT 4.8 10^3/uL (4.3-11.0)
[2018-03-02 07:14] LABS: BUN/CREATININE RATIO 18; CALCIUM 9.1 MG/DL (8.5-10.1); CARBON DIOXIDE 22 MMOL/L (21-32); CHLORIDE 107 MMOL/L (98-107); CREATININE SERUM 0.79 MG/DL (0.60-1.30); GFR ESTIMATED > 60; GLUCOSE 138 MG/DL (70-105); POTASSIUM 4.3 MMOL/L (3.6-5.0); SODIUM 141 MMOL/L (135-145)
[2018-03-02] MEDS ORDERED: LORATADINE (CLARITIN) 10 MG TAB PO PRN (09:00)
[2018-03-02] MEDS: ASPIRIN E.C. 81 MG (ECOTRIN) TAB PO SCH (09:16)
[2018-03-02] MEDS: lisINopril 5 MG (PRINIVIL) TABLET PO SCH (09:16)
[2018-03-02] MEDS: inSUlin DETERMIR 1 UNIT/0.01 ML (LEVEMIR) CHARGE PER UNIT SQ SCH (09:17)
--- NOTE | 2018-03-02 10:14 | Progress Note-Hospitalist ---
Subjective HPI/CC On Admission Date Seen by Provider: Mar 02, 2018 (n) Time Seen by Provider: 10:09 Pt is a72yo CF with a PMH of CAD, IDDMII, and HTN who presented to the ER with chief complaint of confusion. She remains very confused so history is somewhat limited by this. Her friend is at bedside who states the patient picked her up today to go out to breakfast but could not tell her where they were going and thought they were going to a museum. She was not answering questions correctly about what day or year it was so her friend decided to bring her to the hospital. She was activated as a code stroke on arrival but had no focal deficits and NIH was 2 for memory and poor recall. Her CT head was negative but she remained confused. Lab work revealed that she had a UTI as well. Subjective/Events-last exam Pt reports feeling better and denies any confusion. She thinks that the year is 2006 and does not know the month. I called and spoke with the friend who brought her in yesterday and she states she is normally alert and oriented x4 so this is till far from her normal. Objective Exam Vital Signs Vital Signs Date Time Temp Pulse Resp B/P (MAP) Pulse Ox O2 Delivery O2 Flow Rate FiO2 03/02/18 08:00 96.2 80 20 140/65 (90) 97 Room Air Capillary Refill : Less Than 3 Seconds General Appearance: No Apparent Distress, Obese Respiratory: Lungs Clear, No Respiratory Distress Cardiovascular: Regular Rate, Rhythm, No Murmur Gastrointestinal: Normal Bowel Sounds, Non Tender, Soft Neurologic/Psychiatric: Alert, Disoriented (to place and time) Skin: Pallor Results/Procedures Lab Laboratory Tests 03/01/18 11:37 03/02/18 06:12 Patient resulted labs reviewed. Imaging: Reviewed Imaging Report Assessment/Plan Assessment and Plan Assess & Plan/Chief Complaint Altered Mental Status Diagnosis/Problems Diagnosis/Problems (1) Altered mental status Status: Acute Assessment & Plan: Code stroke activated in the ER- I do not believe this to be a stroke Will get MRI though due to persistent confusion Likely due to UTI E coli growing on culture, will await sensitivity and continue on Rocephin Will monitor Qualifiers: Altered mental status type: unspecified Qualified Codes: R41.82 - Altered mental status, unspecified (2) Urinary tract infection Status: Acute Assessment & Plan: Continue on Rocephin Await c/s does not meet sepsis criteria Qualifiers: Urinary tract infection type: site unspecified Hematuria presence: without hematuria Qualified Codes: N39.0 - Urinary tract infection, site not specified (3) Hyperglycemia Status: Acute Assessment & Plan: Insulin resumed BS improved (4) Hypertension Status: Acute Assessment & Plan: Improving Qualifiers: Hypertension type: essential hypertension Qualified Codes: I10 - Essential (primary) hypertension Clinical Quality Measures DVT/VTE Risk/Contraindication: Risk Factor Score Per Nursin RFS Level Per Nursing on Admit: 4+=Very High Stroke: Date of last known well: March 01, 2018 LUCHO RAZA MD Mar 02, 2018 10:14 am
[2018-03-02 10:24] LABS: CHOLESTEROL 155 MG/DL (< 200); HDL CHOLESTEROL 45 MG/DL (40-60); TRIGLYCERIDES 140 MG/DL (<150); VLDL CHOLESTEROL 28 MG/DL (5-40)
--- NOTE | 2018-03-02 10:49 | Physical Therapy Evaluation ---
PT Evaluation-General Medical Diagnosis Admission Date Mar 02, 2018 at 09:54 Medical Diagnosis: AMS/hyperglycemia/UTI Onset Date: Mar 02, 2018 Therapy Diagnosis Therapy Diagnosis: debility Height/Weight Height (Feet): 5 Height (Inches): 7.00 Weight (Pounds): 231 Weight (Ounces): 6.0 Precautions Precautions/Isolations: Fall Prevention, Standard Precautions Weight Bear Status Right Lower Extremity: Right Weight Bearing/Tolerated Left Lower Extremity: Left Weight Bearing/Tolerated Referral Physician: Christine Reason for Referral: Evaluation/Treatment Medical History Pertinent Medical History: CABG, CAD, DM, HTN Additional Medical History Lupus Current History ER via friends secondary to confusion Reviewed History: Yes Social History Home: Single Level Current Living Status: Alone Entry Into Home: Stairs With Railing PT Steps Into Home: 4 Prior/Core FIM Prior Level of Function Functional [place] Measure 0=Not Assessed/NA 4=Minimal Assistance 1=Total Assistance 5=Supervision or Setup 2=Maximal Assistance 6=Modified [place] 3=Moderate Assistance 7=Complete [place] Bed Mobility: 7 Transfers (B,C,W/C) (FIM): 7 Gait: 7 PT Evaluation-Current Subjective Patient agrees to PT. Pain Numeric Pain Scale: 0-No Pain Location: No Pain Reported Objective Patient Orientation: Confused (year 1917/president Chalo Johnson/Month 13) Problem Solving: Poor ROM/Strength ROM Lower Extremities bilateral LE WNL Strength Lower Extremities 4+/5 grossly Integumentary/Posture Integumentary refer to nursing notes Bowel Incontinence: No Bladder Incontinence: No Posture WNL Neuromuscular (Tone, Coordination, Reflexes) grossly intact Sensory Vision: Functional Hearing: Functional Sensation Right Lower Extremit: Impaired Sensation Left Lower Extremity: Impaired Transfers Functional [place] Measure 0=Not Assessed/NA 4=Minimal Assistance 1=Total Assistance 5=Supervision or Setup 2=Maximal Assistance 6=Modified [place] 3=Moderate Assistance 7=Complete [place] Transfers (B, C, W/C) (FIM): 7 Scootin Rollin Supine to/from Sit: 7 Sit to/from Stand: 7 safely independent Gait Mode of Locomotion: Walk Anticipated Mode of Locomotion: Walk Gait (FIM): 7 Distance (FIM): 3=150 ft Distance: 500' Gait Level of Assist: 7 Gait Assistive Device: None Comments/Gait Description slightly WBOS, however, safe and functional with no deviation Stairs Stairs (FIM): 5 #of Steps: 4 Level of Assist: 5 reciprocal pattern/household Balance Sitting Static: Normal Sitting Dynamic: Normal Standing Static: Normal Standing Dynamic: Fair Assessment/Needs 72 y.o. female, is currently independent with all gross motor skills safely and does not require skilled PT intervention. Cognitively, patient is impaired. Dr. King notified and agrees. Rehab Potential: Fair PT Plan Treatment/Plan Treatment Plan: Discontinue PT, goals met Treatment Plan: Other Treatment Duration: Mar 02, 2018 Frequency: 1 time per week Estimated Hrs Per Day: .5 hour per day Patient and/or Family Agrees t: Yes Time/GCodes Time In: 1020 Time Out: 1040 Total Billed Treatment Time: 20 Total Billed Treatment 1 visit EVModC 20 min G Codes Necessary: Yes PT/OT Therapy GCodes Therapy Functional Limitation: Physical Therapy Test(s)/Tool used to determine: FIM Functional Limitation-Current Charge Code: MOBCUR Modifier: CH Functional Limitation-Goal Charge Code: MOBGOAL Modifier: CH Functional Limitation-D/C Charge Codes: MOBDC Modifier: CH ERIC WALKER PT Mar 02, 2018 10:49
[2018-03-02] MEDS: ENOXAPARIN 40 MG/0.4 ML (LOVENOX) SYR SC SCH (11:32)
[2018-03-02] MEDS: cefTRIAXone 1 GM/NS 50 ML IVPB IV SCH ×2 (13:29)
--- NOTE | 2018-03-02 15:41 | Diagnostic Imaging Report ---
PROCEDURE: MR imaging of the brain without contrast. TECHNIQUE: Multiplanar, multisequence MR imaging of the brain was performed without contrast. INDICATION: Memory loss and confusion. COMPARISON: Comparison is made with prior MRI of the brain from 05/14/[address] from one day earlier. FINDINGS: Diffusion-weighted image does show an area of diffusion restriction in the left carrillo radiata that extends inferiorly towards the left internal capsule. This is consistent with an acute nonhemorrhagic infarct. This corresponds with the area of low density seen on CT, which was felt on the CT to be more chronic. This however is indeed acute. No acute intracranial hemorrhage is seen. There are marked periventricular and subcortical white matter signal abnormalities consistent with chronic microvascular ischemia. Old infarct in the right carrillo radiata is noted. There is no midline shift. The normal expected flow voids within the carotid siphons are seen. Corpus callosum is unremarkable. The sella and parasellar structures are unremarkable. IMPRESSION: Extensive chronic white matter changes. There is an acute, nonhemorrhagic infarct on the left involving the left carrillo radiata and extending to the posterior limb of the internal capsule. No acute intracranial hemorrhage is detected. Results were called to Dr. Amena King prior to this dictation. Dictated by: Dictated on workstation # [id number]
--- NOTE | 2018-03-02 16:48 | Occupational Therapy Eval ---
OT Evaluation-General/PLF Medical Diagnosis Admission Date Mar 02, 2018 at 09:54 Medical Diagnosis: AMS/hyperglycemia/UTI Onset Date: Mar 02, 2018 Therapy Diagnosis Therapy Diagnosis: decr self care Height/Weight Height (Feet): 5 Height (Inches): 7.00 Weight (Pounds): 231 Weight (Ounces): 6.0 Precautions Precautions/Isolations: Fall Prevention, Standard Precautions Referral Physician: Christine Referral Reason: Evaluation/Treatment Medical History Pertinent Medical History: CABG, CAD, DM, HTN Additional Medical History Coronary stent. Lupus. Hard of hearing Current History Brought in to ED with confusion, stroke-like symptoms. Found to have UTI. Nursing reported that she did have a stroke, per imaging Reviewed History: Yes Social History Home: Single Level Current Living Status: Alone Entry Into Home: Stairs With Railing Steps Into Home: 4 ADL-Prior Level of Function ADL PLOF Comments Pt reported that she was previously able to manage her basic self care, that she still drove. When asked where she worked, she said twice "[employer] in [employer] [place] [employer]". OT Current Status Subjective Pt seen in room, up in bed, agreeable to OT. Pain reported 0/10. Appearance Asleep but easily awakened Mental Status/Objective Pt knew her name but not her birthday or current date (November 30, 2004). Unable to describe why she is here Current Hand Dominance: Right Upper Extremity ROM Grossly WFl bilat Upper Extremity Strength Grossly 4+/5 bilat ADL-Treatment ADL-Current Pt reported that she has been able to feed herself without difficulty. She moved to sit EOB without help. Put shoes on/off without help. Walked to bathroom without help or AD, got on and off toilet without using grab bar, managed clothing and hygiene, walked to sink and washed/dried hands, then back to bed with no LOB. Due to confusion, recommend that pt still have supervision when going to the bathroom. Information shared with nurse, who agreed. Functional [place] Measure 0=Not Assessed/NA 4=Minimal Assistance 1=Total Assistance 5=Supervision or Setup 2=Maximal Assistance 6=Modified [place] 3=Moderate Assistance 7=Complete IndependenceIRFPAI Quality Coding Scale 6 Independent with activity with or without an assistive device 5 Patient requires set up or clean up by helper. Patient completes activity by themselves 4 Supervision or touching assist (CGA). [place] provide cues , steadying assist 3 The helper provides less than half the effort to complete the activity 2 The helper provides more than half the effort to complete the activity 1 Dependent. The helper does all the effort to complete an activity 7 Patient refused to complete or attempt activity 9 The patient did not perform the activity before the current illness or injury 88 Not attempted due to Medical conditions or safety concerns Education OT Patient Education: Purpose of tx/functional activities, Rehab process Teaching Recipient: Patient Teaching Methods: Demonstration, Discussion Response to Teaching: Verbalize Understanding, Return Demonstration, Reinforcement Needed OT Education/Plan Problem List/Assessment Assessment: No Skilled OT Needs ID'd Pt was able to manage her basic ADLs without assistance and has functional UE strength. No skilled OT needs identified Discharge Recommendations Plan/Recommendations: Discontinue OT Comment May benefit from speech therapy assessment for language Treatment Plan/Plan of Care Treatment,Training & Education: No Patient would benefit from OT for education, treatment and training to promote independence in ADL's, mobility, safety and/or upper extremity function for ADL' s. Treatment Duration: Mar 02, 2018 Frequency: 1 time per week Estimated Hrs Per Day: .25 hour per day Agreement: Yes Rehab Potential: Fair Time/GCodes Start Time: 16:10 Stop Time: 16:25 Total Time Billed (hr/min): 15 Billed Treatment Time visit, evaluation 15 minutes low intensity PT/OT Therapy GCodes Therapy Functional Limitation: Occupational Therapy Test(s)/Tool used to determine: FIM Functional Limitation-Current Charge Code: SELFCUR Modifier: CI Functional Limitation-Goal Charge Code: SELFGOAL Modifier: CI Functional Limitation-D/C Charge Codes: SELFDC Modifier: CI JOSELYN CARTER OT Mar 02, 2018 16:48
[2018-03-02] MEDS: SIMvastatin 40 MG (ZOCOR) TAB PO SCH (19:40)
[2018-03-03 04:29] VITALS: BP 133/67
[2018-03-03] MEDS: inSUlin ASPART (NovoLOG) 1 UNIT/0.01 ML (CHARGE PER UNIT) SC SCH ×7 (06:31→20:52)
[2018-03-03 07:42] VITALS: BP 136/65
--- NOTE | 2018-03-03 08:19 | Progress Note-Hospitalist ---
Subjective HPI/CC On Admission Date Seen by Provider: Mar 03, 2018 Time Seen by Provider: 08:13 Pt is a72yo CF with a PMH of CAD, IDDMII, and HTN who presented to the ER with chief complaint of confusion. She remains very confused so history is somewhat limited by this. Her friend is at bedside who states the patient picked her up today to go out to breakfast but could not tell her where they were going and thought they were going to a museum. She was not answering questions correctly about what day or year it was so her friend decided to bring her to the hospital. She was activated as a code stroke on arrival but had no focal deficits and NIH was 2 for memory and poor recall. Her CT head was negative but she remained confused. Lab work revealed that she had a UTI as well. Subjective/Events-last exam Pt reports feeling better and denies confusion but when asked where she is states " A hospital in [facility]" and believes it to be 2018. She did not remember me telling her that she had a stroke last night. I spoke to her sister about this who agrees she will not be safe to discharge home but that when she is ready pt can live with them. Objective Exam Vital Signs Vital Signs Date Time Temp Pulse Resp B/P (MAP) Pulse Ox O2 Delivery O2 Flow Rate FiO2 03/03/18 07:42 97.8 93 18 136/65 (88) 94 Room Air Capillary Refill : Less Than 3 Seconds General Appearance: No Apparent Distress, Obese Respiratory: Lungs Clear, No Respiratory Distress Cardiovascular: Regular Rate, Rhythm, No Murmur Gastrointestinal: Normal Bowel Sounds, Non Tender, Soft Neurologic/Psychiatric: Alert, Other (oriented to person only) Results/Procedures Lab Patient resulted labs reviewed. Imaging: Reviewed Imaging Report Assessment/Plan Assessment and Plan Assess & Plan/Chief Complaint Altered Mental Status Diagnosis/Problems Diagnosis/Problems (1) Altered mental status Status: Acute Assessment & Plan: Code stroke activated in the ER MRI did reveal acute infarct Discussed with radiology- location of infarct not completely consistent with deficits though May be confounded by UTI E. coli growing on culture- await sensitivities Will monitor Qualifiers: Altered mental status type: unspecified Qualified Codes: R41.82 - Altered mental status, unspecified (2) CVA (cerebral vascular accident) Assessment & Plan: MRi revealed acute left sided infarct PT/OT have evaluated Lipid panel ordered yesterday Continue on Statin and ASA from home Lovenox ordered Non-smoker Qualifiers: CVA mechanism: unspecified Qualified Codes: I63.9 - Cerebral infarction, unspecified (3) Urinary tract infection Status: Acute Assessment & Plan: Continue on Rocephin Await c/s does not meet sepsis criteria Qualifiers: Urinary tract infection type: site unspecified Hematuria presence: without hematuria Qualified Codes: N39.0 - Urinary tract infection, site not specified (4) Hyperglycemia Status: Acute Assessment & Plan: Insulin resumed BS improved (5) Hypertension Status: Chronic Assessment & Plan: Improving Qualifiers: Hypertension type: essential hypertension Qualified Codes: I10 - Essential (primary) hypertension Clinical Quality Measures DVT/VTE Risk/Contraindication: Risk Factor Score Per Nursin RFS Level Per Nursing on Admit: 4+=Very High Stroke: Date of last known well: March 01, 2018 Symptoms onset unknown: No Quality Measures-Stroke Pt: Antithrombotic therapy by EOD 2, Assessed for Rehab (PT,OT,ARU,etc), D/C'd on Antithrombotic, D/C'd on statin (for LDL>=70), Lipid panel ordered, VTE LUCHO RAZA MD Mar 03, 2018 08:19
[2018-03-03] MEDS: lisINopril 5 MG (PRINIVIL) TABLET PO SCH (08:39)
[2018-03-03] MEDS: ASPIRIN E.C. 81 MG (ECOTRIN) TAB PO SCH (08:39)
[2018-03-03] MEDS: inSUlin DETERMIR 1 UNIT/0.01 ML (LEVEMIR) CHARGE PER UNIT SQ SCH (08:40)
[2018-03-03] MEDS: ENOXAPARIN 40 MG/0.4 ML (LOVENOX) SYR SC SCH (10:34)
[2018-03-03 12:00] VITALS: BP 152/77
[2018-03-03] MEDS: cefTRIAXone 1 GM/NS 50 ML IVPB IV SCH ×2 (12:39)
[2018-03-03 16:00] VITALS: BP 132/64
[2018-03-03 20:00] VITALS: BP 127/60
[2018-03-03] MEDS: SIMvastatin 40 MG (ZOCOR) TAB PO SCH (20:31)
[2018-03-04 00:01] VITALS: BP 140/74
[2018-03-04 05:25] LABS: BASOPHILS % (AUTO) 0 % (0-10); EOSINOPHILS # (AUTO) 0.1 10^3/uL (0.0-0.3); EOSINOPHILS % (AUTO) 3 % (0-10); HEMATOCRIT 42 % (35-52); HEMOGLOBIN 13.9 G/DL (11.5-16.0); LYMPHOCYTES # (AUTO) 1.5 X 10^3 (1.0-4.0); LYMPHOCYTES % (AUTO) 30 % (12-44); MEAN CORPUSCULAR HEMOGLOBIN 31 PG (25-34); MEAN CORPUSCULAR HGB CONC 33 G/DL (32-36); MEAN CORPUSCULAR VOLUME 94 FL (80-99); MEAN PLATELET VOLUME 10.7 FL (7.4-10.4); MONOCYTES # (AUTO) 0.6 X 10^3 (0.0-1.0); MONOCYTES % (AUTO) 12 % (0-12); NEUTROPHILS # (AUTO) 2.8 X 10^3 (1.8-7.8); NEUTROPHILS % (AUTO) 56 % (42-75); PLATELET COUNT 207 10^3/uL (130-400); RED BLOOD COUNT 4.42 10^6/uL (4.35-5.85); RED CELL DISTRIBUTION WIDTH 14.6 % (10.0-14.5)
[2018-03-04 05:44] LABS: BUN/CREATININE RATIO 21; CALCIUM 8.8 MG/DL (8.5-10.1); CARBON DIOXIDE 22 MMOL/L (21-32); CHLORIDE 107 MMOL/L (98-107); CREATININE SERUM 0.89 MG/DL (0.60-1.30); GFR ESTIMATED > 60; GLUCOSE 135 MG/DL (70-105); POTASSIUM 4.5 MMOL/L (3.6-5.0); SODIUM 140 MMOL/L (135-145)
[2018-03-04] MEDS: inSUlin ASPART (NovoLOG) 1 UNIT/0.01 ML (CHARGE PER UNIT) SC SCH ×7 (07:03→23:49)
[2018-03-04 08:30] VITALS: BP 145/79
[2018-03-04] MEDS: inSUlin DETERMIR 1 UNIT/0.01 ML (LEVEMIR) CHARGE PER UNIT SQ SCH (08:36)
[2018-03-04] MEDS: lisINopril 5 MG (PRINIVIL) TABLET PO SCH (08:36)
[2018-03-04] MEDS: ASPIRIN E.C. 81 MG (ECOTRIN) TAB PO SCH (08:36)
[2018-03-04] MEDS: ENOXAPARIN 40 MG/0.4 ML (LOVENOX) SYR SC SCH (10:18)
[2018-03-04] MEDS ORDERED: MAGNESIUM 1 GM/100 ML IVPB 100 ML IV SCH (11:15)
[2018-03-04 12:35] VITALS: BP 148/86
--- NOTE | 2018-03-04 12:54 | Progress Note-Hospitalist ---
Subjective HPI/CC On Admission Date Seen by Provider: Mar 04, 2018 Time Seen by Provider: 12:47 Pt is a72yo CF with a PMH of CAD, IDDMII, and HTN who presented to the ER with chief complaint of confusion. She remains very confused so history is somewhat limited by this. Her friend is at bedside who states the patient picked her up today to go out to breakfast but could not tell her where they were going and thought they were going to a museum. She was not answering questions correctly about what day or year it was so her friend decided to bring her to the hospital. She was activated as a code stroke on arrival but had no focal deficits and NIH was 2 for memory and poor recall. Her CT head was negative but she remained confused. Lab work revealed that she had a UTI as well. Subjective/Events-last exam Pt is sitting up in chair. Reports feeling better. Responses seem faster today. Objective Exam Vital Signs Vital Signs Date Time Temp Pulse Resp B/P (MAP) Pulse Ox O2 Delivery O2 Flow Rate FiO2 03/04/18 08:30 97.3 71 18 145/79 (101) 94 Room Air Capillary Refill : Less Than 3 Seconds General Appearance: No Apparent Distress, WD/WN Respiratory: Lungs Clear, No Respiratory Distress Cardiovascular: Regular Rate, Rhythm Gastrointestinal: Normal Bowel Sounds, Non Tender, Soft Neurologic/Psychiatric: Alert, Other (Oriented to person and place, was unable to recall year or month still) Results/Procedures Lab Laboratory Tests 03/04/18 05:06 Patient resulted labs reviewed. Imaging: Reviewed Imaging Report Assessment/Plan Assessment and Plan Assess & Plan/Chief Complaint Altered Mental Status Diagnosis/Problems Diagnosis/Problems (1) Altered mental status Status: Acute Assessment & Plan: Code stroke activated in the ER MRI did reveal acute infarct Discussed with radiology- location of infarct not completely consistent with deficits though May be confounded by UTI E. coli on appropriate abx Will monitor Discussed with sister who will arrange to pt to move in with her at [place] Qualifiers: Altered mental status type: unspecified Qualified Codes: R41.82 - Altered mental status, unspecified (2) CVA (cerebral vascular accident) Status: Acute Assessment & Plan: MRI revealed acute left sided infarct PT/OT have evaluated Lipid panel done Continue on Statin and ASA from home Lovenox ordered Non-smoker Echo shows hyperdynamic EF Carotid dopplers pending Qualifiers: CVA mechanism: unspecified Qualified Codes: I63.9 - Cerebral infarction, unspecified (3) Urinary tract infection Status: Acute Assessment & Plan: Has completed 3 days of abx for UTI but given confusion will increase duration to 5 days stop date updated does not meet sepsis criteria Qualifiers: Urinary tract infection type: site unspecified Hematuria presence: without hematuria Qualified Codes: N39.0 - Urinary tract infection, site not specified (4) Hyperglycemia Status: Acute Assessment & Plan: Insulin resumed BS improved (5) Hypertension Status: Chronic Assessment & Plan: Improving Qualifiers: Hypertension type: essential hypertension Qualified Codes: I10 - Essential (primary) hypertension (6) Discharge planning issues Assessment & Plan: Will need to supervision at discharge Sister making arrangement to have her move in with her Will consult social work for assistance Clinical Quality Measures DVT/VTE Risk/Contraindication: Risk Factor Score Per Nursin RFS Level Per Nursing on Admit: 4+=Very High Stroke: Date of last known well: March 01, 2018 Symptoms onset unknown: No Quality Measures-Stroke Pt: Antithrombotic therapy by EOD 2, Assessed for Rehab (PT,OT,ARU,etc), D/C'd on Antithrombotic, D/C'd on statin (for LDL>=70), Lipid panel ordered, VTE LUCHO RAZA MD Mar 04, 2018 12:54 pm
[2018-03-04] MEDS: cefTRIAXone 1 GM/NS 50 ML IVPB IV SCH ×2 (13:28)
[2018-03-04 16:00] VITALS: BP 138/67
[2018-03-04 19:46] VITALS: BP 132/63
[2018-03-04] MEDS: SIMvastatin 40 MG (ZOCOR) TAB PO SCH (20:19)
[2018-03-04 23:38] VITALS: BP 140/73
[2018-03-05] MEDS: inSUlin ASPART (NovoLOG) 1 UNIT/0.01 ML (CHARGE PER UNIT) SC SCH ×4 (05:20→11:32)
[2018-03-05 08:00] VITALS: BP 169/78
[2018-03-05] MEDS: lisINopril 5 MG (PRINIVIL) TABLET PO SCH (09:28)
[2018-03-05] MEDS: ASPIRIN E.C. 81 MG (ECOTRIN) TAB PO SCH (09:28)
[2018-03-05] MEDS: inSUlin DETERMIR 1 UNIT/0.01 ML (LEVEMIR) CHARGE PER UNIT SQ SCH (09:28)
[2018-03-05] MEDS: ENOXAPARIN 40 MG/0.4 ML (LOVENOX) SYR SC SCH (09:28)
--- NOTE | 2018-03-05 10:54 | ST Cognitive Linguistic Eval ---
Speech Evaluation-General Medical Diagnosis Acute Infarct (Left)/Hyperglycemia/UTI Onset Date: Mar 02, 2018 Therapy Diagnosis Therapy Diagnosis: Moderate Cognitive Impairment/Mild Expressive Aphasia Precautions Precautions/Isolations: Fall Prevention Referral Referring Physician: Dr. Amena King Reason for Referral: Evaluation/Treatment Cognitive, Speech, and Language Evaluation Medical History Pertinent Medical History: CABG, CAD, DM, HTN Current History The patient was admitted to [facility] with a diagnosis of altered mental status. A recently completed MRI revealed an acute left infarct. Reviewed History: Yes Social History Current Living Status: Alone Speech PLF-Current Status Prior Level of Function The patient denied prior challenges with speech, language or cognition. Subjective The patient was seated upright in recliner upon entrance. The patient has two close friends (neighbors) at bedside, who provided additional history to the clinician and confirm the patient has experienced deficits since her hospitalization. The patient was agreeable to participation in the speech, language, and cognition evaluation. Language Eval: Auditory Comprehends Simple Yes/No Ques: Functional Indent/Objects Multiple [place]: Functional (The present caregivers stated the patient has demonstrated whole word paraphasia throughout conversations, however , this was not demonstrated throughout the evaluation.) Ident/Pics in Multiple [place]: Functional (The present caregivers stated the patient has demonstrated whole word paraphasia throughout conversations, however , this was not demonstrated throughout the evaluation.) Follows 1-Step Commands: Functional (Repetition intermittently required.) Follows General Conversations: Functional Language Eval: Verbal Language Completes Spontaneous Greeting: Functional Produces Auto, Serial Info: Functional Imitates Simple Words/Phrases: Functional Word Finding: Mild Requests Basic Needs: Functional States Basic Personal Info: Functional Expresses Complex Ideas: Functional (Some delay in responses were noted.) Language Evaluation: Writing Copies/Traces: Functional Writes to Simple Dictation: Functional Cognitive Patient Orientation The patient was oriented to day of the week and city. The patient was not oriented to date, month, year, or place. Objective Cognitive Domain Attention: Mild Memory: Moderate Problem Solving: Mild Executive Functions: Mild Visuospatial Skills: WNL Objective Formal/Standardized Tests The Rudy Cognitive Assessment (Version Three) Results +09/30 Oral Motor/Speech Production The patient did not demonstrate dysarthria. The patient remained 100% intelligible in known and unknown contexts. Impression The patient displays a mild to moderate cognitive impairment, as well as, mild expressive aphasia characterized by poor memory, decreased attention, and intermittent word-finding difficulty. Speech Short Term Goals Short Term Goals Short Term Goals The patient is scheduled to discharge on this date. Speech Tube Backer Goals [facility] Goals The patient is scheduled to discharge on this date. Speech-Plan Treatment Plan Speech Therapy Treatment Plan: Discontinue ST The patient is scheduled to discharge on this date. Frequency: 1 time per week Estimated Hrs Per Day: .5 hour per day Rehab Potential: Fair Safety Risks/Education Teaching Recipient: Patient, Friend Teaching Methods: Discussion Response to Teaching: Verbalize Understanding Education Topics Provided: Results, Recommendations Discharge Recommendations Speech Therapy Outpatient Time Speech Therapy Time In: 10:15 Speech Therapy Time Out: 10:40 Total Billed Time: 25 Billed Treatment Time 1, SPSNDCOMP Speech GCodes Functional Limitation-Current Modifier: CI Functional Limitation-Goal Modifier: CI CARMELO LOO Mar 05, 2018 10:54
[2018-03-05 12:00] VITALS: BP 132/64
--- NOTE | 2018-03-05 13:06 | Discharge Instructions ---
Discharge Instructions Patient Instructions Patient Instructions: Resume medications as listed on the discharge sequence. Outpatients speech therapy has been arranged for you. Return to The Hospital For: Change in circumstance Activity & Diet Discharge Diet: ADA Diet Activity as Tolerated: Yes Orders-Post D/C & Referrals Outpatient speech therapy RALPH AGUSTIN MD Mar 05, 2018 13:06
--- NOTE | 2018-03-05 13:12 | Progress Note-Hospitalist ---
Progress Note Progress Notes/Assess & Plan Date Seen 03/05/18 Time Seen by Provider: 13:07 Assessment & Plan The patient is a 72-year-old white female who passed through the emergency room while I was on duty. She suffered what appeared to be a CVA. Her NIH score was low. The initial CT was negative. She had an acute urinary tract infection and has been treated with this. Family states that she is brighter but still somewhat scrambled in her thinking. Her words often come out as a word salad as well. MRI of the day following admission suggested a small infarct and on the left. The patient is right-handed and this would be compatible with her speech issues. She is fully ambulatory. Her family is eager to take her to their home. Abena Posada from speech therapy as recommended weekly speech therapy and this will be implemented as well. Physical exam she is quite alert and pleasant. She cleverly minimizes speech. Lungs are clear to auscultation. CV is regular without murmur. Strength is equal and bilateral in both arms and legs. Impression: CVA with only apparent speech loss. 2.hypertension. 3.diabetes. Plan: Discharge. Medications and activities as seen on the discharge sequence RALPH AGUSTIN MD Mar 05, 2018 13:12
--- NOTE | 2018-03-21 14:49 | Discharge Summary-Hospitalist ---
Diagnosis/Chief Complaint Date of Admission Mar 02, 2018 at 09:54 Date of Discharge Mar 05, 2018 at 13:55 Discharge Date: Mar 05, 2018 Admission Diagnosis Altered Mental Status Discharge Diagnosis Acute nonhemorrhagic infarct left brain, involving the left carrillo radiata and extending to the posterior limb of the internal capsule (1) Altered mental status Status: Acute Assessment & Plan: Code stroke activated in the ER MRI did reveal acute infarct Discussed with radiology- location of infarct not completely consistent with deficits though May be confounded by UTI E. coli on appropriate abx Will monitor Discussed with sister who will arrange to pt to move in with her at DC (2) CVA (cerebral vascular accident) Status: Acute Assessment & Plan: MRI revealed acute left sided infarct PT/OT have evaluated Lipid panel done Continue on Statin and ASA from home Lovenox ordered Non-smoker Echo shows hyperdynamic EF Carotid dopplers pending (3) Urinary tract infection Status: Acute Assessment & Plan: Has completed 3 days of abx for UTI but given confusion will increase duration to 5 days stop date updated does not meet sepsis criteria (4) Hyperglycemia Status: Acute Assessment & Plan: Insulin resumed BS improved (5) Hypertension Status: Chronic Assessment & Plan: Improving (6) Discharge planning issues Assessment & Plan: Will need to supervision at discharge Sister making arrangement to have her move in with her Will consult social work for assistance Discharge Summary Discharge Physical Exam Allergies: Coded Allergies: codeine (Unverified Allergy, Unknown, N/V, 05/13/16) propoxyphene HCl (Verified Adverse Reaction, Mild, NAUSEA, 11/28/11) General Appearance: Alert, Oriented X3, Cooperative Hospital Course There was difficulty determining the cause of the patient's confusion. CT scan of the brain had shown no evidence of pathology. MRI was done on and showed an acute nonhemorrhagic infarct involving the left carrillo radiata and extending to the posterior limb of the internal capsule. Extensive chronic white matter changes were noted as well. Her NIH stroke scale was only on memory and recall. No motor abnormalities were determined. She was evaluated by speech. She was deemed ready for discharge. Arrangements were made for outpatient speech services. Medications are as noted on the the discharge sequence. She was discharged in stable condition. Labs (last 24 hrs) Microbiology 03/01/18 Urine Culture - Final, Complete Escherichia coli Patient resulted labs reviewed. Imaging: Reviewed Imaging Report Discussion & Recommendations Discharge Planning: >30 minutes discharge planning Discharge Home Medications: Active Scripts Active Reported Daily Multiple Vitamin (Multivitamin) 1 Each Tablet 1 Tab PO DAILY Aspirin EC (Aspirin) 81 Mg Tablet.dr 81 Mg PO DAILY Fexofenadine HCl 60 Mg Tablet 60 Mg PO DAILY PRN Novolog Flexpen (Insulin Aspart) 300 Units/3 Ml Solution 15-26 Units SC TIDAC Toujeo Solostar (Insulin Glargine,Hum.rec.anlog) 300 Unit/1 Ml Insuln.pen 80 Units SC DAILY Citalopram HBr (Citalopram Hydrobromide) 40 Mg Tablet 40 Mg PO DAILY Metformin HCl 500 Mg Tablet 500 Mg PO BID WITH MEALS Gabapentin 100 Mg Capsule 100 Mg PO DAILY Lisinopril 2.5 Mg Tablet 2.5 Mg PO DAILY Simvastatin 40 Mg Tablet 40 Mg PO HS Instructions to patient/family Please see electronic discharge instructions given to patient. Clinical Quality Measures DVT/VTE Risk/Contraindication: Risk Factor Score Per Nursin RFS Level Per Nursing on Admit: 4+=Very High Stroke: Date of last known well: March 01, 2018 Symptoms onset unknown: No Quality Measures-Stroke Pt: Antithrombotic therapy by EOD 2, Assessed for Rehab (PT,OT,ARU,etc), D/C'd on Antithrombotic, D/C'd on statin (for LDL>=70), Lipid panel ordered, VTE Problem Qualifiers (1) Altered mental status: Altered mental status type: unspecified Qualified Codes: R41.82 - Altered mental status, unspecified (2) CVA (cerebral vascular accident): CVA mechanism: unspecified Qualified Codes: I63.9 - Cerebral infarction, unspecified (3) Urinary tract infection: Urinary tract infection type: site unspecified Hematuria presence: without hematuria Qualified Codes: N39.0 - Urinary tract infection, site not specified (4) Hypertension: Hypertension type: essential hypertension Qualified Codes: I10 - Essential ( primary) hypertension RALPH AGUSTIN MD Mar 21, 2018 14:48
== END 2018-03-05 13:55 | disposition home or self-care (01) | DRG 65 ==
LOC: EDUNIT# 10:56 → ER 10:58 → UNDOADMOB 13:10 → 4TH 13:10 → INTOOBSV 03-02 09:54 → OBSVTOIN 03-02 09:54 → UNDODISIN 03-05 13:55
PROVIDERS: ADMIT Family Medicine; ATTEND Family Medicine
DX: I63.9 Cerebral infarction, unspecified (principal); G31.84 Mild cognitive impairment of uncertain or unknown etiology; R47.01 Aphasia; N39.0 Urinary tract infection, site not specified; B96.20 Unspecified Escherichia coli [E. coli] as the cause of diseases classified elsewhere; E11.65 Type 2 diabetes mellitus with hyperglycemia; R29.702 NIHSS score 2; I10 Essential (primary) hypertension; I25.10 Atherosclerotic heart disease of native coronary artery without angina pectoris; L93.0 Discoid lupus erythematosus; E66.9 Obesity, unspecified; I77.9 Disorder of arteries and arterioles, unspecified; H91.90 Unspecified hearing loss, unspecified ear; Z79.4 Long term (current) use of insulin; Z95.1 Presence of aortocoronary bypass graft; Z95.5 Presence of coronary angioplasty implant and graft; Z68.36 Body mass index [BMI] 36.0-36.9, adult
CPT/HCPCS: 36415; 70450; 70551; 71045; 80048; 80053; 80061; 80320; 81000; 82962; 84484; 85025; 85379; 85610; 85730; 87077; 87088; 87186; 93005; 93041; 93306; 96365; G0378

== ENCOUNTER 2018-04-23 10:56 | Outpatient (RCR) | payer MEDICARE, OTHER ==
[~2018-04-23 10:56] MED LIST changes: +ASPI-983 PO; +CITA40TA11 PO; +FEXO-45 PO; +GABA-486 PO; +INSU100I14 SC; +INSU300I SC; +LISI2.5T PO; +METF-397 PO; +MULT-35 PO
== END 2018-06-11 | disposition home or self-care (01) ==
PROVIDERS: ATTEND Family Medicine
DX: I69.320 Aphasia following cerebral infarction (principal)

== ENCOUNTER 2018-05-01 13:00 | Outpatient (CLI) | payer MEDICARE, OTHER ==
[~2018-05-01 13:00] MED LIST changes: -METF-397 PO; +METF500T5 PO
== END 2018-05-02 13:45 | disposition home or self-care (01) ==
LOC: SLEEP 13:00
PROVIDERS: ATTEND Nurse Practitioner Family
DX: G47.10 Hypersomnia, unspecified (principal); R06.83 Snoring; I10 Essential (primary) hypertension; Z86.73 Personal history of transient ischemic attack (TIA), and cerebral infarction without residual deficits

== ENCOUNTER → 2018-06-05 | Day surgery (SDC) | payer MEDICARE, OTHER ==
[~2018-06-05] VITALS: Ht 170.2 cm; Wt 104.9 kg
[~2018-06-05] MED LIST changes: +LIDOCAINE 1% INJ 20 ML 20 ML VIAL ONE; +METF-397 PO; -METF500T5 PO
--- OUTSIDE RECORDS SUMMARY | 2018-06-05 08:22 | XMS REPORT ---
Author Author KIP GALLO Organization [facility] Address [address] [place] [address] Care Team Providers Care Gear Changer Name Role Phone KIP GALLO Unavailable PROBLEMS Unknown Problems ALLERGIES No Known Allergies ENCOUNTERS Encounter Location Date Diagnosis [facility] [address] [facility] [id number] [address] January, Acute bacterial conjunctivitis of both eyes H10.33 [facility] [id number] [address] January, Acute conjunctivitis of left eye, unspecified acute conjunctivitis type H10.32 IMMUNIZATIONS No Known Immunizations SOCIAL HISTORY Never Assessed REASON FOR VISIT pink eye Pt c/o R eye irritation was in last week for same thing in L eye KERRY Fields PLAN OF CARE Activity Details Follow Up prn Reason: VITAL SIGNS Weight 235.6 lbs 2018-02-08 Temperature 97.4 degrees Fahrenheit 2018-02-08 Heart Rate 76 bpm 2018-02-08 Respiratory Rate 18 2018-02-08 Blood pressure systolic 128 mmHg 2018-02-08 Blood pressure diastolic 76 mmHg 2018-02-08 MEDICATIONS Medication Instructions Dosage Frequency Start Date End Date Duration Status Ciprofloxacin HCl 0.3 % Ophthalmic every 4 hrs while awake 2 drops into affected eye January, January, 5 days Active Metformin HCl 500 MG Orally Once a day 1 tablet with a meal 24h Active NovoLog 100 UNIT/ML Active Pataday 0.2 % Ophthalmic once a day 2 drops in affected eye 24h January, 10 days Not-Taking RESULTS No Results PROCEDURES Procedure Date Ordered Result Body Site [facility] VISIT ESTABLISHED PATIENT February 08, 2018 INSTRUCTIONS MEDICATIONS ADMINISTERED No Known Medications MEDICAL (GENERAL) HISTORY Type Description Date Medical History dm Medical History htn Surgical History open heart surgery
--- OUTSIDE RECORDS SUMMARY | 2018-06-05 08:22 | XMS REPORT ---
Author Author KIP GALLO Organization [facility] Address [address] [place] [address] Care Team Providers Care Fish Net Maker Name Role Phone KIP GALLO Unavailable PROBLEMS Unknown Problems ALLERGIES No Known Allergies ENCOUNTERS Encounter Location Date Diagnosis [facility] [id number] [address] January, Acute bacterial conjunctivitis of both eyes H10.33 [facility] [id number] [address] January, Acute conjunctivitis of left eye, unspecified acute conjunctivitis type H10.32 IMMUNIZATIONS No Known Immunizations SOCIAL HISTORY Never Assessed REASON FOR VISIT eye pain/discharge Pt c/o pain and watery drainage from L eye for 2-3 days KERRY Fields PLAN OF CARE Activity Details Follow Up prn Reason: VITAL SIGNS Weight 235.6 lbs 2018-02-01 Temperature 97.3 degrees Fahrenheit 2018-02-01 Heart Rate 80 bpm 2018-02-01 Respiratory Rate 18 2018-02-01 Blood pressure systolic 132 mmHg 2018-02-01 Blood pressure diastolic 80 mmHg 2018-02-01 MEDICATIONS Medication Instructions Dosage Frequency Start Date End Date Duration Status NovoLog 100 UNIT/ML Active Pataday 0.2 % Ophthalmic once a day 2 drops in affected eye 24h January, 10 days Active Metformin HCl 500 MG Orally Once a day 1 tablet with a meal 24h Active RESULTS No Results PROCEDURES Procedure Date Ordered Result Body Site [facility] VISIT ESTABLISHED PATIENT February 01, 2018 INSTRUCTIONS MEDICATIONS ADMINISTERED No Known Medications MEDICAL (GENERAL) HISTORY Type Description Date Medical History dm Medical History htn Surgical History open heart surgery
--- OUTSIDE RECORDS SUMMARY | 2018-06-05 08:26 | XMS REPORT | Continuity of Care Document ---
Author Author [facility] Address Unknown Phone Unavailable Allergies Active Description Code Type Severity Reaction Onset Reported/Identified Relationship to Patient Clinical Status Yes GATIFLOXACIN UNKNOWN UNKNOWN Yes PROPOXYPHENE UNKNOWN UNKNOWN Yes propoxyphene HCl [id number] Drug Allergy Mild NAUSEA 11/28/2011 Yes codeine [id number] Drug Allergy Unknown N/V 05/13/2016 Medications There [...] FACP CCDS Ot 414.01 CORONARY ATHEROSCLEROSIS OF [place] CORON 01/07/2015 RICKEY ARAMBULA FACC, ALI FACP [...] DO Ot I25.10 ATHSCL HEART DISEASE OF [place] CORONARY 05/15/2016 WILBUR HOWELL DO Ot K30 FUNCTIONAL DYSPEPSIA 05/15/2016 WILBUR HOWELL DO Ot M32.9 SYSTEMIC LUPUS ERYTHEMATOSUS, UNSPECIFIE 05/15/2016 WILBUR HOWELL DO Ot Z79.4 PRISON (CURRENT) USE OF INSULIN 05/15/2016 WILBUR HOWELL [...] ARTERIAL DISEASE NOS 11/07/2016 BAIMA, RAFAEL L DOMESTIC TRAVEL CONSULTANT Ot 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 TRICUSPID INSUFFICIENCY 11/07/2016 BAIMA, RAFAEL L DOMESTIC TRAVEL CONSULTANT Ot I10 ESSENTIAL (PRIMARY) HYPERTENSION 11/07/2016 BAIMA, RAFAEL L DOMESTIC TRAVEL CONSULTANT Ot I25.10 ATHSCL HEART DISEASE OF [place] CORONARY 11/07/2016 BAIMA, RAFAEL L DOMESTIC TRAVEL CONSULTANT Ot I34.0 NONRHEUMATIC MITRAL (VALVE) INSUFFICIENC 11/07/2016 BAIMA, RAFAEL L DOMESTIC TRAVEL CONSULTANT Ot 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 TRICUSPID INSUFFICIENCY 11/07/2016 BAIMA, RAFAEL L DOMESTIC TRAVEL CONSULTANT Ot I10 ESSENTIAL (PRIMARY) HYPERTENSION 11/07/2016 BAIMA, RAFAEL L DOMESTIC TRAVEL CONSULTANT Ot I25.10 ATHSCL HEART DISEASE OF [place] CORONARY 11/07/2016 BAIMA, RAFAEL L DOMESTIC TRAVEL CONSULTANT Ot I34.0 NONRHEUMATIC MITRAL (VALVE) INSUFFICIENC 11/07/2016 BAIMA, RAFAEL L DOMESTIC TRAVEL CONSULTANT Ot 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 TRICUSPID INSUFFICIENCY 11/07/2016 BAIMA, RAFAEL L DOMESTIC TRAVEL CONSULTANT Ot I10 ESSENTIAL (PRIMARY) HYPERTENSION 11/07/2016 BAIMA, RAFAEL L DOMESTIC TRAVEL CONSULTANT Ot I25.10 ATHSCL HEART DISEASE OF [place] CORONARY 11/07/2016 BAIMA, RAFAEL L DOMESTIC TRAVEL CONSULTANT Ot I34.0 NONRHEUMATIC MITRAL (VALVE) INSUFFICIENC 11/28/2016 BAIMA, RAFAEL L DOMESTIC TRAVEL CONSULTANT Ot 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 TRICUSPID INSUFFICIENCY 11/28/2016 BAIMA, RAFAEL L DOMESTIC TRAVEL CONSULTANT Ot I10 ESSENTIAL (PRIMARY) HYPERTENSION 11/28/2016 BAIMA, RAFAEL L DOMESTIC TRAVEL CONSULTANT Ot I25.10 ATHSCL HEART DISEASE OF [place] CORONARY 11/28/2016 BAIMA, RAFAEL L DOMESTIC TRAVEL CONSULTANT Ot I34.0 NONRHEUMATIC MITRAL (VALVE) INSUFFICIENC 12/01/2016 BAIMA, RAFAEL L DOMESTIC TRAVEL CONSULTANT Ot 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 TRICUSPID INSUFFICIENCY 12/01/2016 BAIMA, RAFAEL L DOMESTIC TRAVEL CONSULTANT Ot I10 ESSENTIAL (PRIMARY) HYPERTENSION 12/01/2016 BAIMA, RAFAEL L DOMESTIC TRAVEL CONSULTANT Ot I25.10 ATHSCL HEART DISEASE OF [place] CORONARY 12/01/2016 COLLIN, RAFAEL L DOMESTIC TRAVEL CONSULTANT Ot I34.0 NONRHEUMATIC MITRAL (VALVE) INSUFFICIENC 12/31/2016 Veronica Darnell A 724.5 BACKACHE, UNSPECIFIED 12/31/2016 Veronica Darnell M54.9 DORSALGIA, UNSPECIFIED 05/26/2017 BAIMA, RAFAEL L DOMESTIC TRAVEL CONSULTANT Ot E11.9 TYPE 2 DIABETES MELLITUS WITHOUT COMPLIC 05/26/2017 BAIMA, RAFAEL L DOMESTIC TRAVEL CONSULTANT Ot I10 ESSENTIAL (PRIMARY) HYPERTENSION 05/26/2017 BAIMA, RAFAEL L DOMESTIC TRAVEL CONSULTANT Ot I25.10 ATHSCL HEART DISEASE OF [place] CORONARY 05/26/2017 BAIMA, RAFAEL L DOMESTIC TRAVEL CONSULTANT Ot I65.23 OCCLUSION AND STENOSIS OF BILATERAL [place] 06/16/2017 BAIMA, RAFAEL L DOMESTIC TRAVEL CONSULTANT Ot E11.9 TYPE 2 DIABETES MELLITUS WITHOUT COMPLIC 06/16/2017 BAIMA, RAFAEL L DOMESTIC TRAVEL CONSULTANT Ot I10 ESSENTIAL (PRIMARY) HYPERTENSION 06/16/2017 BAIMA, RAFAEL L DOMESTIC TRAVEL CONSULTANT Ot I25.10 ATHSCL HEART DISEASE OF [place] CORONARY 06/16/2017 BAIMA, RAFAEL L DOMESTIC TRAVEL CONSULTANT Ot I65.23 OCCLUSION AND STENOSIS OF BILATERAL [place] 06/20/2017 BAIMA, RAFAEL L DOMESTIC TRAVEL CONSULTANT Ot E11.9 TYPE 2 DIABETES MELLITUS WITHOUT COMPLIC 06/20/2017 BAIMA, RAFAEL L DOMESTIC TRAVEL CONSULTANT Ot I10 ESSENTIAL (PRIMARY) HYPERTENSION 06/20/2017 BAIMA, RAFAEL L DOMESTIC TRAVEL CONSULTANT Ot I25.10 ATHSCL HEART DISEASE OF [place] CORONARY 06/20/2017 BAIMA, RAFAEL L DOMESTIC TRAVEL CONSULTANT Ot I65.23 OCCLUSION AND STENOSIS OF BILATERAL [place] 07/19/2017 Veronica Darnell A 724.1 PAIN IN THORACIC SPINE 07/19/2017 Marlin Darnella A M54.6 PAIN IN THORACIC SPINE 07/19/2017 Mann Veronica A 724.1 PAIN IN THORACIC SPINE 07/19/2017 Mann, Veronica A M54.6 PAIN IN THORACIC SPINE 01/11/2018 Mann Veronica W 782.3 EDEMA 01/11/2018 Mann Veronica W R60.0 LOCALIZED EDEMA 01/11/2018 Mann Veronica W 782.3 EDEMA 01/11/2018 Marlin Darnella W R60.0 LOCALIZED EDEMA 01/12/2018 [facility], Veronica W 782.3 EDEMA 01/12/2018 Mann, Veronica W R60.0 LOCALIZED EDEMA 01/12/2018 Mann, Veronica W 782.3 EDEMA 01/12/2018 Mann, Veronica W R60.0 LOCALIZED EDEMA 03/05/2018 LUCHO RAZA MD, Ot B96.20 UNSP ESCHERICHIA COLI THE CAUSE OF DI 03/05/2018 LUCHO RAZA MD Ot E11.65 TYPE 2 DIABETES MELLITUS WITH HYPERGLYCE 03/05/2018 LUCHO RAZA MD, Ot E66.9 OBESITY, UNSPECIFIED 03/05/2018 LUCHO RAZA MD, Ot G31.84 MILD COGNITIVE IMPAIRMENT, SO STATED 03/05/2018 LUCHO RAZA MD, Ot H91.90 UNSPECIFIED HEARING LOSS, UNSPECIFIED EA 03/05/2018 LUCHO RAZA MD Ot I10 ESSENTIAL (PRIMARY) HYPERTENSION 03/05/2018 LUCHO RAZA MD, Ot I25.10 ATHSCL HEART DISEASE OF [place] CORONARY 03/05/2018 LUCHO RAZA MD, Ot I63.9 CEREBRAL INFARCTION, UNSPECIFIED 03/05/2018 LUCHO RAZA MD, Ot I77.9 DISORDER OF ARTERIES AND ARTERIOLES, UNS 03/05/2018 LUCHO RAZA MD, Ot L93.0 DISCOID LUPUS ERYTHEMATOSUS 03/05/2018 LUCHO RAZA MD, Ot N39.0 URINARY TRACT INFECTION, SITE NOT SPECIF 03/05/2018 LUCHO RAZA MD, Ot R29.702 NIHSS SCORE 2 03/05/2018 LUCHO RAZA MD, Ot R41.82 ALTERED MENTAL STATUS, UNSPECIFIED 03/05/2018 LUCHO RAZA MD, Ot R47.01 APHASIA 03/05/2018 LUCHO RAZA MD, Ot Z68.36 BODY MASS INDEX (BMI) 36.0-36.9, ADULT 03/05/2018 LUCHO RAZA MD, Ot Z79.4 PRISON (CURRENT) USE OF INSULIN 03/05/2018 LUCHO RAZA MD, Ot Z95.1 PRESENCE OF AORTOCORONARY BYPASS GRAFT 03/05/2018 LUZ MARINA MD, LUCHO M Ot Z95.5 PRESENCE OF CORONARY ANGIOPLASTY IMPLANT 03/06/2018 LUCHO RAZA MD Ot E11.65 TYPE 2 DIABETES MELLITUS WITH HYPERGLYCE 03/06/2018 LUCHO RAZA MD Ot H91.90 UNSPECIFIED HEARING LOSS, UNSPECIFIED EA 03/06/2018 LUCHO RAZA MD Ot I10 ESSENTIAL (PRIMARY) HYPERTENSION 03/06/2018 LUCHO RAZA MD Ot I25.10 ATHSCL HEART DISEASE OF [place] CORONARY 03/06/2018 LUCHO RAZA MD Ot I77.9 DISORDER OF ARTERIES AND ARTERIOLES, UNS 03/06/2018 LUCHO RAZA MD Ot L93.0 DISCOID LUPUS ERYTHEMATOSUS 03/06/2018 LUCHO RAZA MD Ot N39.0 URINARY TRACT INFECTION, SITE NOT SPECIF 03/06/2018 LUCHO RAZA MD Ot R29.702 NIHSS SCORE 2 03/06/2018 LUCHO RAZA MD Ot R41.82 ALTERED MENTAL STATUS, UNSPECIFIED 03/06/2018 LUCHO RAZA MD Ot Z79.4 SLEEVE BASTER (CURRENT) USE OF INSULIN 03/06/2018 LUCHO RAZA MD Ot Z95.1 PRESENCE OF AORTOCORONARY BYPASS GRAFT 03/06/2018 ULCHO RAZA MD Ot Z95.5 PRESENCE OF CORONARY ANGIOPLASTY IMPLANT 03/06/2018 LUCHO RAZA MD Ot E11.65 TYPE 2 DIABETES MELLITUS WITH HYPERGLYCE 03/06/2018 LUCHO RAZA MD Ot H91.90 UNSPECIFIED HEARING LOSS, UNSPECIFIED EA 03/06/2018 LUCHO RAZA MD Ot I10 ESSENTIAL (PRIMARY) HYPERTENSION 03/06/2018 LUCHO RAZA MD Ot I25.10 ATHSCL HEART DISEASE OF [place] CORONARY 03/06/2018 LUCHO RAZA MD Ot I77.9 DISORDER OF ARTERIES AND ARTERIOLES, UNS 03/06/2018 LUCHO RAZA MD Ot L93.0 DISCOID LUPUS ERYTHEMATOSUS 03/06/2018 LUCHO RAZA MD Ot N39.0 URINARY TRACT INFECTION, SITE NOT SPECIF 03/06/2018 LUCHO RAZA MD Ot R29.702 NIHSS SCORE 2 03/06/2018 LUCHO RAZA MD Ot R41.82 ALTERED MENTAL STATUS, UNSPECIFIED 03/06/2018 LUCHO RAZA MD Ot Z79.4 SLEEVE BASTER (CURRENT) USE OF INSULIN 03/06/2018 LUCHO RAZA MD Ot Z95.1 PRESENCE OF AORTOCORONARY BYPASS GRAFT 03/06/2018 LUCHO RAZA MD Ot Z95.5 PRESENCE OF CORONARY ANGIOPLASTY IMPLANT 03/06/2018 LUCHO RAZA MD Ot E11.65 TYPE 2 DIABETES MELLITUS WITH HYPERGLYCE 03/06/2018 LUCHO RAZA MD Ot H91.90 UNSPECIFIED HEARING LOSS, UNSPECIFIED EA 03/06/2018 LUCHO RAZA MD Ot I10 ESSENTIAL (PRIMARY) HYPERTENSION 03/06/2018 LUCHO RAZA MD Ot I25.10 ATHSCL HEART DISEASE OF [place] CORONARY 03/06/2018 LUCHO RAZA MD Ot I77.9 DISORDER OF ARTERIES AND ARTERIOLES, UNS 03/06/2018 LUCHO RAZA MD Ot L93.0 DISCOID LUPUS ERYTHEMATOSUS 03/06/2018 LUCHO RAZA MD Ot N39.0 URINARY TRACT INFECTION, SITE NOT SPECIF 03/06/2018 LUCHO RAZA MD Ot R29.702 NIHSS SCORE 2 03/06/2018 LUCHO RAZA MD Ot R41.82 ALTERED MENTAL STATUS, UNSPECIFIED 03/06/2018 LUCHO RAZA MD Ot Z79.4 SLEEVE BASTER (CURRENT) USE OF INSULIN 03/06/2018 LUCHO RAZA MD Ot Z95.1 PRESENCE OF AORTOCORONARY BYPASS GRAFT 03/06/2018 LUCHO RAZA MD Ot Z95.5 PRESENCE OF CORONARY ANGIOPLASTY IMPLANT 03/21/2018 Mann, Veronica W 782.3 EDEMA 03/21/2018 Mann, Veronica W R60.0 LOCALIZED EDEMA 03/21/2018 Mann, Veronica W 782.3 EDEMA 03/21/2018 Mann, Veronica W R60.0 LOCALIZED EDEMA 03/22/2018 VERONICA DARNELL MD Ot I69.320 APHASIA FOLLOWING CEREBRAL INFARCTION 04/25/2018 VERONICA DARNELL MD Ot I69.320 APHASIA FOLLOWING CEREBRAL INFARCTION 04/30/2018 VERONICA DARNELL MD Ot I69.320 APHASIA FOLLOWING CEREBRAL INFARCTION 05/01/2018 Ot 250.00 DIAB AMEE WO COMPL, TYPE II OR UNSPEC TY 05/01/2018 Ot 272.4 HYPERLIPIDEMIA NEC/NOS 05/01/2018 Ot 401.9 HYPERTENSION NOS 05/01/2018 Ot 414.00 CORON ATHEROSCLER NOS TYPE VESSEL, NATIV 05/01/2018 Ot 447.9 ARTERIAL DISEASE NOS 05/01/2018 BAIMA, RAFAEL L DOMESTIC TRAVEL CONSULTANT Ot 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 TRICUSPID INSUFFICIENCY 05/01/2018 BAIMA, RAFAEL L DOMESTIC TRAVEL CONSULTANT Ot I10 ESSENTIAL (PRIMARY) HYPERTENSION 05/01/2018 BAIMA, RAFAEL L DOMESTIC TRAVEL CONSULTANT Ot I25.10 ATHSCL HEART DISEASE OF [place] CORONARY 05/01/2018 BAIMA, RAFAEL L DOMESTIC TRAVEL CONSULTANT Ot I34.0 NONRHEUMATIC MITRAL (VALVE) INSUFFICIENC 05/01/2018 BAIMA, RAFAEL L DOMESTIC TRAVEL CONSULTANT Ot E11.9 TYPE 2 DIABETES MELLITUS WITHOUT COMPLIC 05/01/2018 BAIMA, RAFAEL L DOMESTIC TRAVEL CONSULTANT Ot I10 ESSENTIAL (PRIMARY) HYPERTENSION 05/01/2018 BAIMA, RAFAEL L DOMESTIC TRAVEL CONSULTANT Ot I25.10 ATHSCL HEART DISEASE OF [place] CORONARY 05/01/2018 BAIMA, RAFAEL L DOMESTIC TRAVEL CONSULTANT Ot I65.23 OCCLUSION AND STENOSIS OF BILATERAL [place] 05/01/2018 MANN ARAMBULA, VERONICA Donnelly Ot I69.320 APHASIA FOLLOWING CEREBRAL INFARCTION 05/01/2018 LOAN, SE J RIDER TICKET WORKER Ot G47.10 HYPERSOMNIA, UNSPECIFIED 05/02/2018 LOAN, ES J RIDER TICKET WORKER Ot G47.10 HYPERSOMNIA, UNSPECIFIED 05/02/2018 LOAN, SE J RIDER TICKET WORKER Ot I10 ESSENTIAL (PRIMARY) HYPERTENSION 05/02/2018 LOAN, SE J RIDER TICKET WORKER Ot R06.83 SNORING 05/02/2018 LOAN, SE J RIDER TICKET WORKER Ot Z86.73 PRSNL HX OF TIA (TIA), AND CEREB INFRC W Procedures There is no data. Results Test [...] blood glucose measurement by glucometer (mass/volume) - 08/12/16 16: 19 Capillary blood glucose measurement by [...] 4.4 mmol/L 3.5-5.3 Sodium 141 mmol/L 134-148 Capillary blood glucose measurement by glucometer (mass/volume) - 03/01/18 11: 22 Capillary blood glucose measurement by glucometer (mass/volume) 355 mg/dL 70-110 Complete blood count (CBC) with automated white blood cell (WBC) differential - 03/01/18 11:37 Blood leukocytes automated count (number/volume) 4.6 10*3/uL 4.3-11.0 Blood erythrocytes automated count (number/volume) 4.22 10*6/uL 4.35-5.85 Venous blood hemoglobin measurement (mass/volume) 13.5 g/dL 11.5-16.0 Blood hematocrit (volume fraction) 39 % 35-52 Automated erythrocyte mean corpuscular volume 93 [foz_us] 80-99 Automated erythrocyte mean corpuscular hemoglobin (mass per erythrocyte) 32 pg 25-34 Automated erythrocyte mean corpuscular hemoglobin concentration measurement ( mass/volume) 34 g/dL 32-36 Automated erythrocyte distribution width ratio 13.9 % 10.0-14.5 Automated blood platelet count (count/volume) 180 10*3/uL 130-400 Automated blood platelet mean volume measurement 10.8 [foz_us] 7.4-10.4 Automated blood neutrophils/100 leukocytes 64 % 42-75 Automated blood lymphocytes/100 leukocytes 23 % 12-44 Blood monocytes/100 leukocytes 10 % 0-12 Automated blood eosinophils/100 leukocytes 2 % 0-10 Automated blood basophils/100 leukocytes 0 % 0-10 Blood neutrophils automated count (number/volume) 2.9 10*3 1.8-7.8 Blood lymphocytes automated count (number/volume) 1.1 10*3 1.0-4.0 Blood monocytes automated count (number/volume) 0.5 10*3 0.0-1.0 Automated eosinophil count 0.1 10*3/uL 0.0-0.3 Automated blood basophil count (count/volume) 0.0 10*3/uL 0.0-0.1 PT panel in platelet poor plasma by coagulation assay - 03/01/18 11:37 Prothrombin time (PT) in platelet poor plasma by coagulation assay 13.1 s 12.2-14.7 INR in platelet poor plasma or blood by coagulation assay 1.0 0.8-1.4 Activated partial thromboplastin time (aPTT) in platelet poor plasma bycoagulation assay - 03/01/18 11:37 Activated partial thromboplastin time (aPTT) in platelet poor plasma bycoagulation assay 29 s 24-35 Fibrin D-dimer FEU measurement in platelet poor plasma (mass/volume) - 11:37 Fibrin D-dimer FEU measurement in platelet poor plasma (mass/volume) 1.79 ug/mL 0.00-0.49 Comprehensive metabolic panel - 03/01/18 11:37 Serum or plasma sodium measurement (moles/volume) 136 mmol/L 135-145 Serum or plasma potassium measurement (moles/volume) 4.5 mmol/L 3.6-5.0 Serum or plasma chloride measurement (moles/volume) 103 mmol/L 98-107 Carbon dioxide 23 mmol/L 21-32 Serum or plasma anion gap determination (moles/volume) 10 mmol/L 5-14 Serum or plasma urea nitrogen measurement (mass/volume) 18 mg/dL 7-18 Serum or plasma creatinine measurement (mass/volume) 1.01 mg/dL 0.60-1.30 Serum or plasma urea nitrogen/creatinine mass ratio 18 NRG Serum or plasma creatinine measurement with calculation of estimated glomerular filtration rate 54 NRG Serum or plasma glucose measurement (mass/volume) 372 mg/dL 70-105 Serum or plasma calcium measurement (mass/volume) 9.1 mg/dL 8.5-10.1 Serum or plasma total bilirubin measurement (mass/volume) 0.6 mg/dL 0.1-1.0 Serum or plasma alkaline phosphatase measurement (enzymatic activity/volume) 64 U/L 40-136 Serum or plasma aspartate aminotransferase measurement (enzymatic activity/ volume) 20 U/L 5-34 Serum or plasma alanine aminotransferase measurement (enzymatic activity/volume ) 30 U/L 0-55 Serum or plasma protein measurement (mass/volume) 6.3 g/dL 6.4-8.2 Serum or plasma albumin measurement (mass/volume) 4.0 g/dL 3.2-4.5 Serum or plasma troponin i.cardiac measurement (mass/volume) - 03/01/18 11:37 Serum or plasma troponin i.cardiac measurement (mass/volume) < ng/ mL <0.30 Serum or plasma ethanol measurement (mass/volume) - 03/01/18 11:37 Serum or plasma ethanol measurement (mass/volume) < mg/dL <10 Complete urinalysis with reflex to culture - 03/01/18 11:45 Urine color determination YELLOW NRG Urine clarity determination CLEAR NRG Urine pH measurement by test strip 5 5-9 Specific gravity of urine by test strip 1.020 1.016- 1.022 Urine protein assay by test strip, semi-quantitative 1+ NEGATIVE Urine glucose detection by automated test strip 3+ NEGATIVE Erythrocytes detection in urine sediment by light microscopy NEGATIVE NEGATIVE Urine ketones detection by automated test strip NEGATIVE NEGATIVE Urine nitrite detection by test strip POSITIVE NEGATIVE Urine total bilirubin detection by test strip NEGATIVE NEGATIVE Urine urobilinogen measurement by automated test strip (mass/volume) NORMAL NORMAL Urine leukocyte esterase detection by dipstick NEGATIVE NEGATIVE Automated urine sediment erythrocyte count by microscopy (number/high power field) NONE NRG Automated urine sediment leukocyte count by microscopy (number/high power field ) [HPF] NRG Bacteria detection in urine sediment by light microscopy LARGE NRG Squamous epithelial cells detection in urine sediment by light microscopy 2-5 NRG Crystals detection in urine sediment by light microscopy NONE NRG Casts detection in urine sediment by light microscopy NONE NRG Mucus detection in urine sediment by light microscopy NEGATIVE NRG Complete urinalysis with reflex to culture YES NRG Bacterial urine culture - 03/01/18 11:45 Bacterial urine culture [id number] NRG COLONY COUNT >100,000/ML NRG FTX;REPORTABLE RML SENT SUSCEPTIBILITY/FINAL REPORT NR FREE TEXT ENTRY 2 03/03 09:06 NR RML Sensitivity Panel - 03/01/18 11:45 Gentamicin susceptibility test by minimum inhibitory concentration < = NRG Trimethoprim/sulfamethoxazole susceptibility test by minimum inhibitoryconcentration = NRG Levofloxacin susceptibility test by minimum inhibitory concentration <= NRG Ampicillin susceptibility test by minimum inhibitory concentration > NRG Cefazolin susceptibility test by minimum inhibitory concentration 2 NRG Ceftriaxone susceptibility test by minimum inhibitory concentration <= NRG Ciprofloxacin susceptibility test by minimum inhibitory concentration <= NRG Meropenem susceptibility test by minimum inhibitory concentration < = NRG Nitrofurantoin susceptibility test by minimum inhibitory concentration <= NRG Amoxicillin and clavulanate potassium susc SILVIA = NRG Capillary blood glucose measurement by glucometer (mass/volume) - 03/01/18 14: 30 Capillary blood glucose measurement by glucometer (mass/volume) 223 mg/dL 70-110 Capillary blood glucose measurement by glucometer (mass/volume) - 03/01/18 19: 27 Capillary blood glucose measurement by glucometer (mass/volume) 182 mg/dL 70-110 Capillary blood glucose measurement by glucometer (mass/volume) - 03/02/18 05: 11 Capillary blood glucose measurement by glucometer (mass/volume) 149 mg/dL 70-110 Complete blood count (CBC) with automated white blood cell (WBC) differential - 03/02/18 06:12 Blood leukocytes automated count (number/volume) 4.8 10*3/uL 4.3-11.0 Blood erythrocytes automated count (number/volume) 4.47 10*6/uL 4.35-5.85 Venous blood hemoglobin measurement (mass/volume) 14.0 g/dL 11.5-16.0 Blood hematocrit (volume fraction) 42 % 35-52 Automated erythrocyte mean corpuscular volume 93 [foz_us] 80-99 Automated erythrocyte mean corpuscular hemoglobin (mass per erythrocyte) 31 pg 25-34 Automated erythrocyte mean corpuscular hemoglobin concentration measurement ( mass/volume) 34 g/dL 32-36 Automated erythrocyte distribution width ratio 14.5 % 10.0-14.5 Automated blood platelet count (count/volume) 203 10*3/uL 130-400 Automated blood platelet mean volume measurement 10.8 [foz_us] 7.4-10.4 Automated blood neutrophils/100 leukocytes 58 % 42-75 Automated blood lymphocytes/100 leukocytes 29 % 12-44 Blood monocytes/100 leukocytes 10 % 0-12 Automated blood eosinophils/100 leukocytes 3 % 0-10 Automated blood basophils/100 leukocytes 1 % 0-10 Blood neutrophils automated count (number/volume) 2.8 10*3 1.8-7.8 Blood lymphocytes automated count (number/volume) 1.4 10*3 1.0-4.0 Blood monocytes automated count (number/volume) 0.5 10*3 0.0-1.0 Automated eosinophil count 0.1 10*3/uL 0.0-0.3 Automated blood basophil count (count/volume) 0.0 10*3/uL 0.0-0.1 Whole blood basic metabolic panel - 03/02/18 06:12 Serum or plasma sodium measurement (moles/volume) 141 mmol/L 135-145 Serum or plasma potassium measurement (moles/volume) 4.3 mmol/L 3.6-5.0 Serum or plasma chloride measurement (moles/volume) 107 mmol/L 98-107 Carbon dioxide 22 mmol/L 21-32 Serum or plasma anion gap determination (moles/volume) 12 mmol/L 5-14 Serum or plasma urea nitrogen measurement (mass/volume) 14 mg/dL 7-18 Serum or plasma creatinine measurement (mass/volume) 0.79 mg/dL 0.60-1.30 Serum or plasma urea nitrogen/creatinine mass ratio 18 NRG Serum or plasma creatinine measurement with calculation of estimated glomerular filtration rate > NRG Serum or plasma glucose measurement (mass/volume) 138 mg/dL 70-105 Serum or plasma calcium measurement (mass/volume) 9.1 mg/dL 8.5-10.1 Lipid 1996 panel - 03/02/18 06:12 Serum or plasma triglyceride measurement (mass/volume) 140 mg/dL <150 Serum or plasma cholesterol measurement (mass/volume) 155 mg/dL < 200 Serum or plasma cholesterol in HDL measurement (mass/volume) 45 mg/ dL 40-60 Cholesterol in LDL [mass/volume] in serum or plasma by direct assay 93 mg/dL 1-129 Serum or plasma cholesterol in VLDL measurement (mass/volume) 28 mg/ dL 5-40 Capillary blood glucose measurement by glucometer (mass/volume) - 03/02/18 10: 40 Capillary blood glucose measurement by glucometer (mass/volume) 264 mg/dL 70-110 Capillary blood glucose measurement by glucometer (mass/volume) - 03/02/18 15: 24 Capillary blood glucose measurement by glucometer (mass/volume) 176 mg/dL 70-110 Capillary blood glucose measurement by glucometer (mass/volume) - 03/02/18 21: 36 Capillary blood glucose measurement by glucometer (mass/volume) 167 mg/dL 70-110 Capillary blood glucose measurement by glucometer (mass/volume) - 03/03/18 06: 15 Capillary blood glucose measurement by glucometer (mass/volume) 132 mg/dL 70-110 Capillary blood glucose measurement by glucometer (mass/volume) - 03/03/18 09: 29 Capillary blood glucose measurement by glucometer (mass/volume) 193 mg/dL 70-110 Capillary blood glucose measurement by glucometer (mass/volume) - 03/03/18 14: 51 Capillary blood glucose measurement by glucometer (mass/volume) 200 mg/dL 70-110 Capillary blood glucose measurement by glucometer (mass/volume) - 03/03/18 20: 40 Capillary blood glucose measurement by glucometer (mass/volume) 191 mg/dL 70-110 Complete blood count (CBC) with automated white blood cell (WBC) differential - 03/04/18 05:06 Blood leukocytes automated count (number/volume) 5.0 10*3/uL 4.3-11.0 Blood erythrocytes automated count (number/volume) 4.42 10*6/uL 4.35-5.85 Venous blood hemoglobin measurement (mass/volume) 13.9 g/dL 11.5-16.0 Blood hematocrit (volume fraction) 42 % 35-52 Automated erythrocyte mean corpuscular volume 94 [foz_us] 80-99 Automated erythrocyte mean corpuscular hemoglobin (mass per erythrocyte) 31 pg 25-34 Automated erythrocyte mean corpuscular hemoglobin concentration measurement ( mass/volume) 33 g/dL 32-36 Automated erythrocyte distribution width ratio 14.6 % 10.0-14.5 Automated blood platelet count (count/volume) 207 10*3/uL 130-400 Automated blood platelet mean volume measurement 10.7 [foz_us] 7.4-10.4 Automated blood neutrophils/100 leukocytes 56 % 42-75 Automated blood lymphocytes/100 leukocytes 30 % 12-44 Blood monocytes/100 leukocytes 12 % 0-12 Automated blood eosinophils/100 leukocytes 3 % 0-10 Automated blood basophils/100 leukocytes 0 % 0-10 Blood neutrophils automated count (number/volume) 2.8 10*3 1.8-7.8 Blood lymphocytes automated count (number/volume) 1.5 10*3 1.0-4.0 Blood monocytes automated count (number/volume) 0.6 10*3 0.0-1.0 Automated eosinophil count 0.1 10*3/uL 0.0-0.3 Automated blood basophil count (count/volume) 0.0 10*3/uL 0.0-0.1 Whole blood basic metabolic panel - 03/04/18 05:06 Serum or plasma sodium measurement (moles/volume) 140 mmol/L 135-145 Serum or plasma potassium measurement (moles/volume) 4.5 mmol/L 3.6-5.0 Serum or plasma chloride measurement (moles/volume) 107 mmol/L 98-107 Carbon dioxide 22 mmol/L 21-32 Serum or plasma anion gap determination (moles/volume) 11 mmol/L 5-14 Serum or plasma urea nitrogen measurement (mass/volume) 19 mg/dL 7-18 Serum or plasma creatinine measurement (mass/volume) 0.89 mg/dL 0.60-1.30 Serum or plasma urea nitrogen/creatinine mass ratio 21 NRG Serum or plasma creatinine measurement with calculation of estimated glomerular filtration rate > NRG Serum or plasma glucose measurement (mass/volume) 135 mg/dL 70-105 Serum or plasma calcium measurement (mass/volume) 8.8 mg/dL 8.5-10.1 Capillary blood glucose measurement by glucometer (mass/volume) - 03/04/18 05: 55 Capillary blood glucose measurement by glucometer (mass/volume) 135 mg/dL 70-110 Capillary blood glucose measurement by glucometer (mass/volume) - 03/04/18 10: 10 Capillary blood glucose measurement by glucometer (mass/volume) 196 mg/dL 70-110 Capillary blood glucose measurement by glucometer (mass/volume) - 03/04/18 14: 35 Capillary blood glucose measurement by glucometer (mass/volume) 203 mg/dL 70-110 Capillary blood glucose measurement by glucometer (mass/volume) - 03/04/18 20: 07 Capillary blood glucose measurement by glucometer (mass/volume) 170 mg/dL 70-110 Capillary blood glucose measurement by glucometer (mass/volume) - 03/05/18 05: 13 Capillary blood glucose measurement by glucometer (mass/volume) 97 mg/dL 70-110 Capillary blood glucose measurement by glucometer (mass/volume) - 03/05/18 09: 26 Capillary blood glucose measurement by glucometer (mass/volume) 185 mg/dL 70-110 BMP - 03/21/18 13:52 Anion Gap 18 6-14 BUN 23 mg/dL 5-25 Calcium 9.7 mg/dL 8.3-10.4 Chloride 105 mmol/L 95-114 CO2 22 mEq/L 22-33 Creat 1.02 mg/dL 0.50-1.50 eGFR 53 mL/min/1.73m2 >59 Glucose 153 mg/dL 70-110 Osmo 295 280-295 Potassium 4.6 mmol/L 3.5-5.3 Sodium 140 mmol/L 134-148 Thyroid Stimulating Hormone - 05/11/18 14:38 TSH 1.79 mIU/mL 0.32-5.00 Urine Culture - 05/11/18 14:38 PRELIM CULTURE RESULTS >100,000 Gram Negative SILVIA / ID to Follow MEDIA PLATED Setup at 14:55 on 05/11/2018 CULTURE SOURCE void Sensi - 05/11/18 14:38 FINAL CULTURE RESULTS Escherichia coli (Isolate 1) Ampicillin/Sulbactam <=8/4 Ampicillin <=8 Amoxicillin/K Clavulanate <=8/4 Ceftriaxone <=8 Ciprofloxacin <=1 Nitrofurantoin <=32 Gentamicin <=4 Levofloxacin <=2 Trimethoprim/ Sulfamethoxazole <=2/38 Tetracycline <=4 Amikacin <=16 Aztreonam <=8 Ceftazidime <=1 Ceftazidime/K Clavulanate <=0.25 Cephalothin <=8 Cefotaxime <=2 Cefotaxime/K Clavulanate <=0.5 Cefoxitin <=8 Cefazolin <=8 Cefepime <=8 Cefuroxime <=4 Ertapenem <=1 Imipenem <=4 Meropenem <=4 Piperacillin/Tazobactam <=16 Piperacillin <=16 Tigecycline <=2 Tobramycin <=4 Encounters ACCT No. Visit Date/Time Discharge Status Pt. Type Provider Facility Loc./Unit Complaint [id number] 09/29/2014 14:01:22 09/29/2014 23:59:59 CLS Outpatient Gilda Mane [id number] 05/01/2018 13:00:00 05/01/2018 23:59:59 CLS Outpatient SE CATES [employer] [facility] SLEEP G47.10 HYPERSOMNIA , EDS [id number] 04/24/2018 08:00:00 04/24/2018 23:59:59 CLS Preadmit RICKEY ARAMBULA FACC, EDA KNOX CCDS [facility] PALPITATIONS, CAD,DM [id number] 04/23/2018 10:56:00 04/23/2018 23:59:59 CLS Outpatient VERONICA DARNELL MD [facility] REHAB CVA [id number] 03/02/2018 09:54:00 03/05/2018 13:55:00 DIS Inpatient LUCHO RAZA MD [facility] 4TH AMS,HYPERGLYCEMIA,UTI [id number] 05/25/2017 08:05:00 05/25/2017 23:59:59 CLS Outpatient BAIRAFAEL PAYNE DOMESTIC TRAVEL CONSULTANT [facility] CARD CAD I25.10 [id number] 11/04/2016 10:50:00 11/04/2016 23:59:59 CLS Outpatient BAIKERRY RAFAEL L DOMESTIC TRAVEL CONSULTANT [facility] CARD CAD,HTN,TR [id number] 05/13/2016 20:30:00 05/15/2016 12:50:00 DIS Inpatient HOWELLROSETTA HOFFMANN WILBUR [facility] 4TH AMS, HYPERTENSIVE EMERGENCY, HYPERGLYCEMIA [id number] 01/06/2015 07:19:00 01/07/2015 11:25:00 DIS Outpatient RICKEY ARAMBULA FACC, EDA KNOX CCDS [facility] CAD,ANGINA, ABNORMAL STRESS [id number] 01/06/2015 09:45:00 Document Registration [id number] 12/14/2012 09:40:00 Document Registration [id number] 11/19/2012 15:13:00 Document Registration [id number] 10/08/2012 11:25:00 Document Registration [id number] 09/14/2012 14:45:00 Document Registration [id number] 08/20/2012 10:50:00 Document Registration [id number] 08/16/2012 13:21:00 Document Registration [id number] 08/13/2012 09:48:00 Document Registration [id number] 11/28/2011 05:45:00 Document Registration [id number] 11/23/2011 13:05:00 Document Registration [id number] 09/08/2011 08:19:00 Document Registration [id number] 09/05/2011 13:01:00 Document Registration [id number] 05/11/2018 14:30:00 05/11/2018 23:59:00 DIS Outpatient Veronica Darnell [id number] 03/21/2018 13:49:00 03/21/2018 23:59:00 DIS Outpatient Veronica Darnell [id number] 03/12/2018 14:00:00 03/12/2018 23:59:00 DIS Outpatient Veronica Darnell [id number] 01/12/2018 08:55:00 01/12/2018 23:59:00 DIS Outpatient Veronica Darnell [id number] 01/11/2018 15:23:00 01/11/2018 23:59:00 DIS Outpatient Veronica Darnell [id number] 12/05/2017 09:18:00 12/05/2017 23:59:00 DIS Outpatient NASEEM KERR [id number] 07/19/2017 00:00:00 07/19/2017 23:59:00 DIS Outpatient Veronica Darnell [id number] 05/12/2017 10:25:00 06/15/2017 12:55:00 DIS Outpatient Veronica Darnell [id number] 05/05/2017 09:25:00 05/05/2017 23:59:00 DIS Outpatient Corazon Kirby [id number] 10/13/2016 16:43:00 10/13/2016 23:59:00 DIS Outpatient Veronica Darnell [id number] 08/18/2016 09:05:00 08/18/2016 23:59:00 DIS Outpatient MannVeronica [id number] 02/08/2018 16:20:00 02/08/2018 23:59:59 CLS Outpatient JYOTSNA FLANNERY LAC [facility]
[2018-06-05 08:43] VITALS: BP 166/88
--- NOTE | 2018-06-05 10:17 | Cardiac Procedure Note-CS/ASA ---
Pre-Procedure Note Pre-Op Procedure Note H&P Reviewed The H&P was reviewed, patient examined and no changes noted. Date H&P Reviewed: Jun 05, 2018 Time H&P Reviewed: 10:17 Conscious Sedation Pre-Proced Time Reviewed: 10:17 ASA Class: 3 Airway Mallampati Classification: ([place] appropriate class) I. II. III, IV Lungs Heart ASA score ASA 1: a normal healthy patient ASA 2: a patient with a mild systemic disease (mid diabetes, controlled hypertension, obesity ASA 3: a patient with a severe systemic disease that limits activity (angina , COPD, prior Myocardial infarction) ASA 4: a patient with an incapacitating disease that is a constant threat to life (CHF, renal failure) ASA 5: a moribund patient not expected to survive 24 hrs. (ruptured aneurysm) ASA 6: a declared brain patient whose organs are being harvested. For emergent operations, add the letter E after the classification Grade 3 Sedation Plan: Analgesia, Amnesia, Plan communicated to team members, Discussed options with patient/fam, Discussed risks with patient/fam Note The patient is an appropriate candidate to undergo the planned procedure, sedation, and anesthesia. The patient immediately re-assessed prior to indication. EDA LANG MD FACP FAC CCDS Jun 05, 2018 10:17
--- NOTE | 2018-06-05 13:46 | OPERATIVE REPORT ---
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 PROCEDURE: Implantable loop recorder implantation. INDICATIONS: The patient is a 72-year-old lady who recently had a nonhemorrhagic stroke and occult atrial fibrillation is a concern (cryptogenic stroke). Implantable loop recorder implantation was carried out after having obtained an informed consent. DESCRIPTION OF PROCEDURE: [facility] The left prepectoral area was prepared and draped in usual sterile fashion. Lidocaine 1% was used for local anesthesia. The tools provided with the Wevebob Reveal LINQ devices were used to make a subcutaneous pocket anterior to the L fourth intercostal space and the device was placed in the pocket without difficulty. The patient tolerated the procedure well. The skin edges were closed using Dermabond and Steri-Strips. The device serial #[id number]. Job ID: [id number] DocumentID: [id number] Dictated Date: 06/05/2018 10:25:46 Registered Nurse Teacher Date: 06/05/2018 13:45:49 Dictated By: EDA LANG MD, MA, FACP, FACC, MTDD
== END | disposition home or self-care (01) ==
LOC: CATH 08:03
PROVIDERS: ATTEND Internal Medicine Cardiovascular Disease
DX: I69.328 Other speech and language deficits following cerebral infarction (principal); I25.10 Atherosclerotic heart disease of native coronary artery without angina pectoris; E11.9 Type 2 diabetes mellitus without complications; I10 Essential (primary) hypertension; E78.5 Hyperlipidemia, unspecified; G47.33 Obstructive sleep apnea (adult) (pediatric); E66.9 Obesity, unspecified; Z68.36 Body mass index [BMI] 36.0-36.9, adult; Z95.1 Presence of aortocoronary bypass graft; Z79.84 Long term (current) use of oral hypoglycemic drugs; Z79.82 Long term (current) use of aspirin
CPT/HCPCS: 33282

== ENCOUNTER → 2018-06-21 | Outpatient (CLI) | payer MEDICARE, OTHER ==
[~2018-06-21] MED LIST changes: -LIDOCAINE 1% INJ 20 ML 20 ML VIAL ONE
[2018-06-21 09:51] LABS: BASOPHILS % (AUTO) 0 % (0-10); EOSINOPHILS # (AUTO) 0.1 10^3/uL (0.0-0.3); EOSINOPHILS % (AUTO) 1 % (0-10); HEMATOCRIT 41 % (35-52); HEMOGLOBIN 14.1 G/DL (11.5-16.0); LYMPHOCYTES % (AUTO) 13 % (12-44); MEAN CORPUSCULAR HEMOGLOBIN 32 PG (25-34); MEAN CORPUSCULAR HGB CONC 35 G/DL (32-36); MEAN CORPUSCULAR VOLUME 93 FL (80-99); MEAN PLATELET VOLUME 10.8 FL (7.4-10.4); MONOCYTES # (AUTO) 0.8 X 10^3 (0.0-1.0); MONOCYTES % (AUTO) 10 % (0-12); NEUTROPHILS # (AUTO) 6.1 X 10^3 (1.8-7.8); NEUTROPHILS % (AUTO) 76 % (42-75); PLATELET COUNT 199 10^3/uL (130-400); RED BLOOD COUNT 4.37 10^6/uL (4.35-5.85); RED CELL DISTRIBUTION WIDTH 14.3 % (10.0-14.5)
[2018-06-21 10:17] LABS: CALCIUM 9.4 MG/DL (8.5-10.1); CREATININE SERUM 1.2 MG/DL (0.60-1.30); POTASSIUM 4.4 MMOL/L (3.6-5.0)
== END ==
LOC: LAB 09:31
PROVIDERS: ATTEND Internal Medicine Cardiovascular Disease
DX: I25.10 Atherosclerotic heart disease of native coronary artery without angina pectoris (principal); E11.9 Type 2 diabetes mellitus without complications; I10 Essential (primary) hypertension; I77.89 Other specified disorders of arteries and arterioles
CPT/HCPCS: 36415; 80048; 83735; 85025

== ENCOUNTER 2019-10-03 11:18 | Outpatient (RCR) | payer MEDICARE, OTHER | END 2019-10-03 14:44 | disposition home or self-care (01) | PROVIDERS: ATTEND Family Medicine | DX: R26.89 Other abnormalities of gait and mobility (principal) ==

== ENCOUNTER → 2020-08-18 | Day surgery (SDC) | payer MEDICARE, OTHER ==
[2020-08-18] VITALS (10 sets, daily range): BP systolic 129–158; BP diastolic 53–82
[~2020-08-18] VITALS: Ht 175 cm; Wt 112.0 kg
[~2020-08-18] MED LIST changes: +ASPI-1238 PO; -ASPI-983 PO; +CLOP75TA28 PO; +HEParin (CATH LAB) 2,000 ML IV ONE; +LIDOCAINE 1% INJ 20 ML 20 ML VIAL ONE; +MIDAZOLAM 5 MG/5 ML (VERSED) VIAL ONE; +NS IV 1000 ML 1,000 ML IV SCH; +NS IV 1000 ML 1,000 ML ONE; +PATIENT MAY USE OWN MEDS, ALL PO SCH; +SIMV40TA25 PO; +fentaNYL INJECTION 100 MCG/2 ML AMP ONE
[2020-08-18 07:54] LABS: HEMOGLOBIN 13.5 g/dL (11.5-16.0); MEAN PLATELET VOLUME 11.1 fL (9.0-12.2); WHITE BLOOD COUNT 4.8 10^3/uL (4.3-11.0)
[2020-08-18 08:07] LABS: INR 1.1 (0.8-1.4); PROTHROMBIN TIME PATIENT 14.2 SEC (12.2-14.7)
[2020-08-18 08:14] LABS: ALBUMIN 4.1 GM/DL (3.2-4.5); BILIRUBIN,TOTAL 0.7 MG/DL (0.1-1.0); CALCIUM 8.6 MG/DL (8.5-10.1); CREATININE SERUM 1.22 MG/DL (0.60-1.30); POTASSIUM 4.5 MMOL/L (3.6-5.0); TOTAL PROTEIN 6.7 GM/DL (6.4-8.2)
--- NOTE | 2020-08-18 09:41 | Cardiac Procedure Note-CS/ASA ---
Pre-Procedure Note Pre-Op Procedure Note H&P Reviewed The H&P was reviewed, patient examined and no changes noted. Date H&P Reviewed: Aug 18, 2020 Time H&P Reviewed: 09:41 Conscious Sedation Pre-Proced Time 09:41 ASA Score 3 For ASA 3 and 4: Consider anesthesia and medical clearance. Also, for patients with a history of failed moderate sedation consider anesthesia. Airway Lungs Heart ASA score ASA 1: a normal healthy patient ASA 2: a patient with a mild systemic disease (mid diabetes, controlled hypertension, obesity ASA 3: a patient with a severe systemic disease that limits activity (angina, COPD, prior Myocardial infarction) ASA 4: a patient with an incapacitating disease that is a constant threat to life (CHF, renal failure) ASA 5: a moribund patient not expected to survive 24 hrs. (ruptured aneurysm) ASA 6: a declared brain- patient whose organs are being harvested. For emergent operations, add the letter E after the classification Mallampati Classification Grade 3 Sedation Plan Analgesia, Amnesia, Plan communicated to team members, Discussed options with patient/fam, Discussed risks with patient/fam The patient is an appropriate candidate to undergo the planned procedure, sedation, and anesthesia. The patient immediately re-assessed prior to indication. EDA LANG MD FACP FAC CCDS Aug 18, 2020 09:41
--- NOTE | 2020-08-18 10:21 | Discharge Inst-Post CATH ---
Discharge Inst-CATH/EP Post Cardiac Cath/EP D/C Inst Follow Up/Plan F/u with Dr Burgess in 2 weeks ACTIVITY * Go Home directly and rest. * Limit activity of the leg (or wrist if it was used) for 7 days including aerobics, swimming, jogging, bicycling, etc. * Restrict stair-climbing for 7 days if possible, if not, climb up with your n on-cath leg, then bring together on the same step. * Avoid lifting, pushing, pulling or excessive movement of the affected ex tremity for 7 days. * Customary sexual activity may be resumed after 2 days-use caution not to use a position that strains or causes pain to the affected extremity. * No driving for 24 hours. * NO SMOKING. * Avoid straining for bowel movements for 7 days. * Gentle walking on level ground is allowed. * Returning to work will depend on the type of procedure and the results. Your doctor will discuss this with you. CALL YOUR DOCTOR FOR ANY OF THE FOLLOWING: *If bleeding from the puncture site occurs- Apply gentle pressure to site with clean cloth and call your doctor or EMS. * If a knot or lump forms under the skin, increases in size, or causes pain. * If bruising appears to be worsening or moving further down your leg instead of disappearing. * Temperature above 101 F. CARE OF YOUR GROIN INCISION; * Bruising or purple discoloration of the skin near the puncture site is common. * You may shower only, no bathtub bathing for 5 days. Be careful to avoid slipping as your leg may feel stiff. * If a closure device was used on your femoral artery, please see the attached guide regarding care of the device and your leg. * Leave dressing on FOR 24 hours. CARE OF YOUR WRIST INCISION; * Bruising or purple discoloration of the skin near the puncture site is common. * You may shower. * DO NOT submerge wrist. * Leave dressing on FOR 24 hours. EDA BURGESS MD FACP FAC CCDS Aug 18, 2020 10:21
--- NOTE | 2020-08-18 10:22 | Discharge Inst-Cardiology ---
Discharge Inst-Cardiac Discharge Medications New Medications: Clopidogrel Bisulfate (Clopidogrel) 75 Mg Tablet 75 MG PO DAILY, #30 TAB 5 Refills Continued Medications: Aspirin (Aspirin EC) 81 Mg Tablet.dr 81 MG PO DAILY, TAB Citalopram Hydrobromide (Citalopram HBr) 40 Mg Tablet 40 MG PO DAILY, TAB Fexofenadine HCl (Fexofenadine HCl) 60 Mg Tablet 60 MG PO DAILY PRN for ALLERGIES, TAB Gabapentin (Gabapentin) 100 Mg Capsule 100 MG PO DAILY, CAP Insulin Aspart (Novolog Flexpen) 300 Units/3 Ml Solution 15-26 UNITS SC TIDAC, EA Insulin Glargine,Hum.rec.anlog (Toujeo Solostar) 300 Unit/1 Ml Insuln.pen 80 UNITS SC DAILY, EA Lisinopril (Lisinopril) 2.5 Mg Tablet 2.5 MG PO DAILY, TAB Multivitamin (Daily Multiple Vitamin) 1 Each Tablet 1 TAB PO DAILY, TAB Simvastatin (Simvastatin) 40 Mg Tablet 40 MG PO HS, TAB Discontinued Medications: Metformin HCl (Metformin HCl) 500 Mg Tablet 500 MG PO BID WITH MEALS, TAB Patient Instructions Patient Instructions: Hold METFORMIN until the morning of 08/21/20. Then resume previous home dose EDA LANG MD FACP FAC CCDS Aug 18, 2020 10:22
--- NOTE | 2020-08-18 11:10 | NUR ---
SPO2 98% CONSISTENTLY ON O2 PER N/C AT 2L/MIN, RATE OF FLOW LOWERED TO 1L/MIN/NC. ALSO HOB ELEVATED TO ABOUT 30 DEGREES PER PT REQUEST
--- NOTE | 2020-08-18 11:45 | NUR ---
SPO2 IS 96% ON 1L/O2 PER N/C. WILL TRY ON ROOM AIR. ENJOYING A LIGHT SNACK.
--- NOTE | 2020-08-18 11:57 | OPERATIVE REPORT ---
DATE OF SERVICE: 08/18/2020 ABDOMINAL AORTIC AND PERIPHERAL ANGIOGRAPHY The patient is a 74-year-old lady, who has a known coronary and peripheral arterial disease. Lately, she has been experiencing more leg claudication and segmental pressures indicated considerable disease in the lower legs. Angiography was performed after having obtained an informed consent. DESCRIPTION OF PROCEDURE: She was brought to the cardiac catheterization laboratory in a fasting state. Right groin was prepared and draped in the usual sterile fashion. Lidocaine 1% was used for local anesthesia. Modified Seldinger technique was used to advance a 5-Taiwanese sheath in right femoral artery. A 5-Taiwanese pigtail catheter was placed at the level of L1 and abdominal aortic angiography was performed. The pigtail was pulled back to just above the level of aortoiliac bifurcation and bilateral leg artery angiography was performed with runoff down to the level of the ankles. After removal of the diagnostic catheter, angiography of the right femoral artery was carried out through the sheath and Mynx was used to achieve hemostasis. ABDOMINAL AORTIC ANGIOGRAPHY: Abdominal aortic angiography did not indicate any significant abdominal aortic aneurysm or dissection or stenosis. Renal arteries are identified and do not exhibit significant disease. Aortoiliac bifurcation is intact and do not exhibit significant disease. BILATERAL LEG ARTERY ANGIOGRAPHY: Bilateral iliac arteries, including common iliac, external iliac, internal iliac, are intact and do not exhibit significant disease. Bilateral common femoral arteries are intact. Bilateral superficial and femoral arteries are intact. The superficial femoral artery on the left side exhibits a 60% to 70% stenosis in its distal portion. The superficial femoral artery on the right side has diffuse mild to moderate disease. On the left side, popliteal artery and the tibioperoneal trunk exhibits 60% to 70% stenoses. The left anterior tibial artery is occluded in its proximal portion. There is a 2-vessel runoff down to the level of the ankle. On the right side, the anterior tibial and the peroneal arteries appear occluded in the proximal to mid portions. The posterior tibial artery has a good runoff down to the level of the ankle. CONCLUSIONS: 1. No significant abdominal aortic stenosis or aneurysm or dissection. 2. 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 On the left side, there is 60% to 70% stenosis in the distal superficial femoral and 60% to 70% stenosis in the left popliteal and the left tibioperoneal trunk. The left anterior tibial is occluded in its proximal to mid portion. On the right side, there is proximal to mid vessel occlusion of the anterior tibial and the peroneal and there is a 1-vessel runoff (posterior tibial). DISCUSSION AND RECOMMENDATIONS: We are adding clopidogrel to the regimen. She currently has moderate leg claudication and does not seem to have nonhealing wounds. We will discuss this with her in detail on an outpatient basis. If she has severe claudication or if there are nonhealing wounds, we will consider percutaneous intervention to the distal (below knee) arterial system of the legs. Job ID: [id number] DocumentID: [id number] Dictated Date: 08/18/2020 10:34:24 Teacher Visually Impaired Date: 08/18/2020 11:57:04 Dictated By: EDA LANG MD, MA, FACP, FACC,
--- NOTE | 2020-08-18 12:50 | NUR ---
RESTING COMFORTABLY IN CART. AWAKE, SPEECH CLEAR, PAIN FREE. HAS FINISHED HER LUNCH. DISCHARGE INSTURCTIONS GIVEN BOTH VERBALLY ET PRINTED. VERBALIZES UNDERSTANDING. DISCUSSION OF NEW MED PLAVIX.
--- NOTE | 2020-08-18 12:53 | NUR ---
BRYAN CLOSURE CARD INCLUDED WITH HER DISCHARGE PACKET.
== END ==
LOC: CATH 09:00
PROVIDERS: ATTEND Internal Medicine Cardiovascular Disease
DX: I70.213 Atherosclerosis of native arteries of extremities with intermittent claudication, bilateral legs (principal); E11.51 Type 2 diabetes mellitus with diabetic peripheral angiopathy without gangrene; I25.10 Atherosclerotic heart disease of native coronary artery without angina pectoris; F41.9 Anxiety disorder, unspecified; G47.33 Obstructive sleep apnea (adult) (pediatric); I48.0 Paroxysmal atrial fibrillation; E78.5 Hyperlipidemia, unspecified; I63.9 Cerebral infarction, unspecified; E66.9 Obesity, unspecified; Z68.36 Body mass index [BMI] 36.0-36.9, adult; Z79.01 Long term (current) use of anticoagulants; Z79.84 Long term (current) use of oral hypoglycemic drugs; Z79.899 Other long term (current) drug therapy; Z88.5 Allergy status to narcotic agent; Z88.8 Allergy status to other drugs, medicaments and biological substances
CPT/HCPCS: 75625; 75716; 80053; 80061; 85027; 85610; 85730; 87081; C1760; C1894; 36415

== ENCOUNTER → 2020-12-15 | Outpatient (CLI) | payer MEDICARE, OTHER ==
[~2020-12-15] VITALS: Ht 175 cm; Wt 100.0 kg
[~2020-12-15] MED LIST changes: +CATHETER FLUSH 10 ML SYR IV PRN; -HEParin (CATH LAB) 2,000 ML IV ONE; -LIDOCAINE 1% INJ 20 ML 20 ML VIAL ONE; -MIDAZOLAM 5 MG/5 ML (VERSED) VIAL ONE; -NS IV 1000 ML 1,000 ML IV SCH; -NS IV 1000 ML 1,000 ML ONE; -PATIENT MAY USE OWN MEDS, ALL PO SCH; +REGADENOSON 0.4 MG/5 ML SYR (LEXISCAN) IV ONE; -fentaNYL INJECTION 100 MCG/2 ML AMP ONE
[2020-12-15 09:19] VITALS: BP 153/79
--- NOTE | 2020-12-15 15:09 | STRESS TEST ---
DATE OF SERVICE: 12/15/2020 RESTING AND POST REGADENOSON TECHNETIUM-99M TETROFOSMIN SPECT CT IMAGING ORDERING PHYSICIAN: Tegan Palomo APRN PRIMARY PHYSICIAN: Dr. Hargrove. OTHER PHYSICIAN: Dr. Lang. CLINICAL DIAGNOSIS: Coronary artery disease. Baseline images were carried out after injection of 10.62 mCi of technetium-99m Tetrofosmin. This was followed by 0.4 mg Regadenoson and 30.7 mCi of technetium-99m Tetrofosmin for stress imaging. The electrocardiogram showed sinus rhythm at baseline. It did not change significantly with the Regadenoson infusion. The patient noted some nausea following Regadenoson infusion, which resolved in a few minutes. Review of images at rest and following stress indicates a small to moderate basal inferior perfusion defect. Gated images show normal global left ventricular systolic function with normal regional wall motion. Left ventricular ejection fraction is calculated to be 86%. Left ventricular end diastolic volume is 33 mL. TID is absent (1.03). CONCLUSION: 1. This study is indicative of a small to moderate amount of basal inferior ischemia. 2. Normal regional wall motion. 3. Normal to hyperdynamic left ventricular systolic function with a calculated ejection fraction of 86%. Job ID: [id number] DocumentID: [id number] Dictated Date: 12/15/2020 14:50:14 Flooring Machine Feeder Date: 12/15/2020 15:09:37 Dictated By: EDA LANG MD, MA, FACP, FACC, MTDD
== END ==
LOC: CARD 08:30
PROVIDERS: ATTEND Nurse Practitioner Family
DX: I25.10 Atherosclerotic heart disease of native coronary artery without angina pectoris (principal); I10 Essential (primary) hypertension
CPT/HCPCS: 78452; 93017; A9502

== ENCOUNTER → 2020-12-17 | Outpatient (CLI) | payer MEDICARE, OTHER ==
[~2020-12-17] MED LIST changes: -CATHETER FLUSH 10 ML SYR IV PRN; -REGADENOSON 0.4 MG/5 ML SYR (LEXISCAN) IV ONE
== END ==
LOC: CARD 10:00
PROVIDERS: ATTEND Nurse Practitioner Family
DX: I25.10 Atherosclerotic heart disease of native coronary artery without angina pectoris (principal); I10 Essential (primary) hypertension
CPT/HCPCS: 93306

== ENCOUNTER 2021-12-19 11:55 | Inpatient (IN) | payer MEDICARE, OTHER ==
[~2021-12-19] VITALS: Ht 172.7 cm; Wt 90.8 kg
[~2021-12-19 11:55] MED LIST changes: -CITA40TA11 PO; +CITA40TA13 PO; -LEVO250T46; -LISI2.5T PO; +LISI2.5T13 PO; +LVF250T
--- NOTE | 2021-12-19 12:23 | ED GI ---
General Chief Complaint: Abdominal/GI Problems Stated Complaint: VOMITING/LETHARGIC Source of Information: Patient, Family Exam Limitations: No Limitations History of Present Illness Date Seen by Provider: Dec 19, 2021 Time Seen by Provider: 12:20 Initial Comments To ER by private vehicle accompanied by her sister with reports of vomiting abdominal pain and lethargy. This began on 12/13/2021 while on vacation in [place]. She had only been there 1 day when she developed vomiting and pain. Symptoms were persistent throughout their stay until they got home and even this morning she has ongoing right-sided abdominal pain with nausea. Her last bowel movement was this morning and it was normal. No fevers or chills. Sister reports that she is also confused, upon arrival to the ER the patient asked how long since she had been at the airport and did not seem to understand when she was told that it had been over an hour. She does have a history of CABG, she is on Eliquis but she is not sure why, she denies any known history of atrial fibrillation, denies any history of pulmonary embolism or DVT. She has had a stroke with right-sided deficit. Timing/Duration: 1-2 Days Severity/Quality: Moderate Location: RLQ, Generalized Abdomen Radiation: No Radiation Activities at Onset: None Associated Symptoms: Nausea/Vomiting Allergies and Home Medications Allergies Coded Allergies: codeine (Unverified Allergy, Unknown, N/V, 05/13/16) propoxyphene HCl (Verified Adverse Reaction, Mild, NAUSEA, 11/28/11) Patient Home Medication List Home Medication List Reviewed: Yes Aspirin (Aspirin EC) 81 Mg Tablet.dr, 81 MG PO DAILY, (Reported) Entered as Reported by: COSME MARTINEZ on 03/01/18 1524 Citalopram Hydrobromide (Citalopram HBr) 40 Mg Tablet, 40 MG PO DAILY, (Reported) Entered as Reported by: COSME MARTINEZ on 03/01/18 1448 Clopidogrel Bisulfate (Clopidogrel) 75 Mg Tablet, 75 MG PO DAILY Prescribed by: EDA LANG on 08/18/20 1020 Fexofenadine HCl (Fexofenadine HCl) 60 Mg Tablet, 60 MG PO DAILY PRN for ALLERGIES, (Reported) Entered as Reported by: COSME MARTINEZ on 03/01/18 1524 Gabapentin (Gabapentin) 100 Mg Capsule, 100 MG PO DAILY, (Reported) Entered as Reported by: COSME MARTINEZ on 03/01/18 1448 Insulin Aspart (Novolog Flexpen) 300 Units/3 Ml Solution, 15-26 UNITS SC TIDAC, (Reported) Entered as Reported by: COSME MARTINEZ on 03/01/18 1459 Insulin Glargine,Hum.rec.anlog (Toujeo Solostar) 300 Unit/1 Ml Insuln.pen, 80 UNITS SC DAILY, (Reported) Entered as Reported by: COSME MARTINEZ on 03/01/18 1459 Lisinopril (Lisinopril) 2.5 Mg Tablet, 2.5 MG PO DAILY, (Reported) Entered as Reported by: COSME MARTINEZ on 03/01/18 1448 Multivitamin (Daily Multiple Vitamin) 1 Each Tablet, 1 TAB PO DAILY, (Reported) Entered as Reported by: COSME MARTINEZ on 03/01/18 1527 Simvastatin (Simvastatin) 40 Mg Tablet, 40 MG PO HS, (Reported) Entered as Reported by: COSME MARTINEZ on 03/01/18 1448 Review of Systems Review of Systems Constitutional: see HPI EENTM: No Symptoms Reported Respiratory: No Symptoms Reported Cardiovascular: No Symptoms Reported Gastrointestinal: See HPI, Abdominal Pain; Denies Diarrhea; Nausea Genitourinary: No Symptoms Reported; Denies See HPI, Denies Discharge, Denies Drainage, Denies Flank Pain, Denies Hematuria Musculoskeletal: no symptoms reported Skin: no symptoms reported Psychiatric/Neurological: No Symptoms Reported Endocrine: No Symptoms Reported Hematologic/Lymphatic: No Symptoms Reported Past Ededete-Llhqxr-Lmegft Hx Immunizations Up To Date Tetanus Booster (TDap): Less than 5yrs Seasonal Allergies Seasonal Allergies: No Past Medical History Surgeries: Yes CABG, Coronary Stent, Orthopedic Respiratory: Yes Sleep Apnea Currently Using CPAP: Yes Currently Using BIPAP: No Cardiac: Yes (Carotid Dz) Coronary Artery Disease, Hypertension Neurological: No Reproductive Disorders: No Sexually Transmitted Disease: No Gastrointestinal: No Musculoskeletal: No Endocrine: Yes Diabetes, Insulin dep, Lupus Hearing Impairment: Hard of Hearing Cancer: No Psychosocial: No Integumentary: No Blood Disorders: No Family Medical History Diabetes mellitus 19 FATHER G8 BROTHER Neoplasm 19 MOTHER ( with ca of bladder) Physical Exam Vital Signs Vital Signs - First Documented 12/19/21 12:12 Temp 36.3 Pulse 81 Resp 20 B/P (MAP) 197/81 (119) Pulse Ox 94 O2 Delivery Room Air Capillary Refill : Height/Weight/BMI Height: 5'7.00" Weight: 231lbs. 6.0oz. [id number]; 32.65 BMI Method:Estimated General Appearance: WD/WN, no apparent distress HEENT: PERRL/EOMI, normal ENT inspection Respiratory: no respiratory distress, no accessory muscle use Gastrointestinal: normal bowel sounds, soft, tenderness (Right-sided abdominal tenderness) Extremities: normal range of motion, non-tender Neurologic/Psychiatric: alert Progress/Results/Core Measures Results/Orders Lab Results Laboratory Tests Test 12/19/21 12:18 12/19/21 13:10 Range/Units White Blood Count 14.8 H 4.3-11.0 10^3/uL Red Blood Count 5.02 3.80-5.11 10^6/uL Hemoglobin 15.5 11.5-16.0 g/dL Hematocrit 46 35-52 % Mean Corpuscular Volume 92 80-99 fL Mean Corpuscular Hemoglobin 31 25-34 pg Mean Corpuscular Hemoglobin Concent 34 32-36 g/dL Red Cell Distribution Width 13.0 10.0-14.5 % Platelet Count 277 130-400 10^3/uL Mean Platelet Volume 10.4 9.0-12.2 fL Immature Granulocyte % (Auto) 0 % Neutrophils (%) (Auto) 88 H 42-75 % Lymphocytes (%) (Auto) 6 L 12-44 % Monocytes (%) (Auto) 5 0-12 % Eosinophils (%) (Auto) 0 0-10 % Basophils (%) (Auto) 0 0-10 % Neutrophils # (Auto) 13.1 H 1.8-7.8 10^3/uL Lymphocytes # (Auto) 0.9 L 1.0-4.0 10^3/uL Monocytes # (Auto) 0.8 0.0-1.0 10^3/uL Eosinophils # (Auto) 0.0 0.0-0.3 10^3/uL Basophils # (Auto) 0.0 0.0-0.1 10^3/uL Immature Granulocyte # (Auto) 0.0 0.0-0.1 10^3/uL Neutrophils % (Manual) 86 % Lymphocytes % (Manual) 6 % Monocytes % (Manual) 4 % Eosinophils % (Manual) 0 % Basophils % (Manual) 0 % Band Neutrophils 4 % Blood Morphology Comment NORMAL Sodium Level 136 135-145 MMOL/L Potassium Level 4.1 3.6-5.0 MMOL/L Chloride Level 97 L 98-107 MMOL/L Carbon Dioxide Level 21 21-32 MMOL/L Anion Gap 18 H 5-14 MMOL/L Blood Urea Nitrogen 13 7-18 MG/DL Creatinine 1.08 0.60-1.30 MG/DL Estimat Glomerular Filtration Rate 54 BUN/Creatinine Ratio 12 Glucose Level 299 H 70-105 MG/DL Calcium Level 9.9 8.5-10.1 MG/DL Corrected Calcium 9.7 8.5-10.1 MG/DL Magnesium Level 1.4 L 1.6-2.4 MG/DL Total Bilirubin 1.0 0.1-1.0 MG/DL Aspartate Amino Transf (AST/SGOT) 18 5-34 U/L Alanine Aminotransferase (ALT/SGPT) 16 0-55 U/L Alkaline Phosphatase 83 40-136 U/L Total Protein 7.7 6.4-8.2 GM/DL Albumin 4.3 3.2-4.5 GM/DL Urine Color YELLOW Urine Clarity SL CLOUDY Urine pH 6.0 5-9 Urine Specific Hank[place] 1.025 H 1.016-1.022 Urine Protein TRACE H NEGATIVE Urine Glucose (UA) 2+ H NEGATIVE Urine Ketones 2+ H NEGATIVE Urine Nitrite POSITIVE H NEGATIVE Urine Bilirubin NEGATIVE NEGATIVE Urine Urobilinogen 0.2 < = 1.0 MG/DL Urine Leukocyte Esterase NEGATIVE NEGATIVE Urine RBC (Auto) NEGATIVE NEGATIVE Urine RBC NONE /HPF Urine WBC NONE /HPF Urine Squamous Epithelial Cells 0-2 /HPF Urine Crystals NONE /LPF Urine Bacteria LARGE H /HPF Urine Casts NONE /LPF Urine Mucus NEGATIVE /LPF Urine Culture Indicated YES My Orders Orders - TIERA VERNON MEDICAL LABORATORY ASSISTANT Cbc With Automated Diff (12/19/21 12:19) Comprehensive Metabolic Panel (12/19/21 12:19) Ua Culture If Indicated (12/19/21 12:19) Ed Iv/Invasive Line Start (12/19/21 12:19) Lactated Ringers (Lr 1000 Ml Iv Solution (12/19/21 12:30) Ondansetron Injection (Zofran Injectio (12/19/21 12:30) Magnesium (12/19/21 12:19) Manual Differential (12/19/21 12:18) Straight Cath (Urinary) (12/19/21 12:38) Ct Abdomen/Pelvis W (12/19/21 13:09) Iohexol Injection (Omnipaque 350 Mg/Ml 1 (12/19/21 13:15) Received Contrast (Hold Metformin- Contr (12/19/21 13:15) Ns (Ivpb) (Sodium Chloride 0.9% Ivpb Bag (12/19/21 13:15) Urine Culture (12/19/21 13:10) Chest 1 View, Ap/Pa Only (12/19/21 13:31) Piperacillin Sodium/Tazobactam (Zosyn Vi (12/19/21 14:15) Medications Given in ED Current Medications Medications Dose Ordered Sig/Boy Route Start Time Stop Time Status Last Admin Dose Admin Ondansetron HCl 4 mg ONCE ONCE IVP 12/19/21 12:30 12/19/21 12:31 DC 12/19/21 12:27 4 MG Vital Signs/I&O 12/19/21 12:12 Temp 36.3 Pulse 81 Resp 20 B/P (MAP) 197/81 (119) Pulse Ox 94 O2 Delivery Room Air Departure Communication (Admissions) Family Conversation NAME: [facility] REC#: [id number] PT STATUS: REG ER : 1945 PHYSICIAN: TIERA VERNON APRN ADMIT DATE: 12/19/21/ER Draft Date of Exam:12/19/21 CHEST 1 VIEW, AP/PA ONLY INDICATION: Right-sided abdominal pain with vomiting. Confusion.. TECHNIQUE: Single view chest 1:30 PM. CORRELATION STUDY: 03/01/2018 FINDINGS: Poststernotomy change. Electronic device has been placed over the left heart border. Heart size is borderline enlarged. Vascular slightly increased but without overt failure. Slight perihilar opacities are noted, may reflect mild edema versus less likely infiltrate. Unchanged elevated right diaphragm. No focal lobar infiltrate. IMPRESSION: 1. Findings do suggest a likely mild central vascular congestion. Dictated on workstation # [id number] Dict: 12/19/21 1339 Trans: 12/19/21 1343 [facility] [id number] Interpreted by: MELLISA MEADE DO Electronically signed by: NAME: [facility] REC#: [id number] PT STATUS: REG ER : 1945 PHYSICIAN: TIERA VERNON APRN ADMIT DATE: 12/19/21/ER Draft Date of Exam:12/19/21 CT ABDOMEN/PELVIS W PROCEDURE: CT abdomen and pelvis with contrast. TECHNIQUE: Multiple contiguous axial images were obtained through the abdomen and pelvis after administration of intravenous contrast. Auto Exposure Controls were utilized during the CT exam to meet ALARA standards for radiation dose reduction. All CT scans use one or more of the following dose optimizing techniques: automated exposure control, MA and/or KvP adjustment based on patient size and exam type or iterative reconstruction. INDICATION: Right-sided abdominal pain COMPARISON: None available FINDINGS: The visualized lung bases are clear. Tiny hiatal hernia. 1.3 cm hypodensity is identified involving the anterior aspect of the dome of the liver. The liver is otherwise unremarkable. The spleen is unremarkable. The adrenal glands are unremarkable. The pancreas is unremarkable. Small diverticulum associated with the 2nd portion of the duodenum without adjacent inflammatory stranding. No abnormal dilatation of the common bile duct. The gallbladder is at upper limits of normal in size. There is suggestion of possible pericholecystic fluid, particularly seen on the coronal images. Calcifications with associated atrophy involving the inferior pole of the right kidney. The right kidney and right ureter is otherwise unremarkable. 6 mm nonobstructing left renal calculus. The left kidney and left ureter are otherwise unremarkable. Moderate vascular calcifications without aneurysmal dilatation of the abdominal aorta. No evidence of acute appendicitis. The urinary bladder is unremarkable. Peripheral calcifications associated with the uterus. Otherwise, the uterus and adnexal structures are unremarkable for age. No bowel obstruction or pneumatosis. Mild colonic diverticulosis without CT evidence of diverticulitis. No significant adenopathy, free air, or free fluid in abdomen or pelvis. Scattered osseous degenerative changes without acute osseous abnormality. IMPRESSION: The gallbladder is at upper limits of normal in size with suggestion of pericholecystic fluid. This raises the question of the acute cholecystitis. Recommend clinical correlation. If there is clinical concern for acute cholecystitis, a right upper quadrant ultrasound would be recommended. Mild colonic diverticulosis without CT evidence of diverticulitis. Nonobstructing left renal calculus. Indeterminate hepatic hypodensity. This may simply relate to transient hepatic arterial defect as this is abutting the diaphragmatic surface, though mass lesions not excluded. Recommend a nonemergent CT of the abdomen with and without contrast using hepatic mass protocol for further evaluation. Additional findings as above. Dictated on workstation # [id number] Dict: 12/19/21 1344 Trans: 12/19/21 1354 [facility] [id number] Interpreted by: GERARDO MCCORMACK MD Electronically signed by: Impression Primary Impression: Altered mental status Additional Impression: Abdominal pain Disposition: ADMITTED INPATIENT Condition: Stable Admissions Decision to Admit Reason: Admit from ER (General) Decision to Admit/Date: Dec 19, 2021 Time/Decision to Admit Time: 14:06 Departure-Patient Inst. Referrals: AYAH DARNELL MD (PCP/Family) Primary Care Physician TIERA VERNON APRN Dec 19, 2021 12:23
[2021-12-19 12:24] LABS: BASOPHILS % (AUTO) 0 % (0-10); EOSINOPHILS % (AUTO) 0 % (0-10); HEMATOCRIT 46 % (35-52); HEMOGLOBIN 15.5 g/dL (11.5-16.0); LYMPHOCYTES # (AUTO) 0.9 10^3/uL (1.0-4.0); LYMPHOCYTES % (AUTO) 6 % (12-44); MEAN CORPUSCULAR HEMOGLOBIN 31 pg (25-34); MEAN CORPUSCULAR HGB CONC 34 g/dL (32-36); MEAN CORPUSCULAR VOLUME 92 fL (80-99); MEAN PLATELET VOLUME 10.4 fL (9.0-12.2); MONOCYTES # (AUTO) 0.8 10^3/uL (0.0-1.0); MONOCYTES % (AUTO) 5 % (0-12); NEUTROPHILS # (AUTO) 13.1 10^3/uL (1.8-7.8); NEUTROPHILS % (AUTO) 88 % (42-75); PLATELET COUNT 277 10^3/uL (130-400); WHITE BLOOD COUNT 14.8 10^3/uL (4.3-11.0)
[2021-12-19] MEDS ORDERED: ONDANSETRON 4 MG/2 ML (SDV) Z0FRAN IVP ONE (12:30)
[2021-12-19] MEDS ORDERED: LACTATED RINGERS 1,000 ML IV SCH (12:30)
[2021-12-19 12:44] LABS: ALBUMIN 4.3 GM/DL (3.2-4.5); POTASSIUM 4.1 MMOL/L (3.6-5.0)
[2021-12-19 12:46] LABS: CALCIUM 9.9 MG/DL (8.5-10.1)
[2021-12-19 12:47] LABS: TOTAL PROTEIN 7.7 GM/DL (6.4-8.2)
[2021-12-19 12:50] LABS: CREATININE SERUM 1.08 MG/DL (0.60-1.30)
[2021-12-19 12:53] LABS: MAGNESIUM 1.4 MG/DL (1.6-2.4)
[2021-12-19 13:15] LABS: BILIRUBIN,URINE NEGATIVE (NEGATIVE); CLARITY,URINE SL CLOUDY; COLOR,URINE YELLOW; GLUCOSE, URINE (UA) 2+ (NEGATIVE); KETONES,URINE 2+ (NEGATIVE); LEUKOCYTE ESTERASE ,URINE NEGATIVE (NEGATIVE); NITRITE,URINE POSITIVE (NEGATIVE); PROTEIN,URINE TRACE (NEGATIVE)
[2021-12-19] MEDS ORDERED: NS 100 ML (IVPB) BAG IV ONE (13:15)
[2021-12-19] MEDS ORDERED: IOHEXOL 350 MG/ML 100 ML (OMNIPAQUE 350) VIAL IV ONE (13:15)
[2021-12-19] MEDS ORDERED: HOLD METFORMIN - RECEIVED CONTRAST 20 ML VIAL IV SCH (13:15)
[2021-12-19 13:17] LABS: BAND NEUTROPHILS 4 %; LYMPHOCYTES % (MANUAL) 6 %; MONOCYTES % (MANUAL) 4 %; NEUTROPHILS % (MANUAL) 86 %
[2021-12-19 13:18] LABS: BASOPHILS % (MANUAL) 0 %; EOSINOPHILS % (MANUAL) 0 %; RBC MORPH NORMAL
[2021-12-19 13:27] LABS: BACTERIA,URINE LARGE /HPF; SQUAMOUS EPITHELIAL CELL,UR 0-2 /HPF
--- NOTE | 2021-12-19 13:44 | Diagnostic Imaging Report ---
INDICATION: Right-sided abdominal pain with vomiting. Confusion.. TECHNIQUE: Single view chest 1:30 PM. CORRELATION STUDY: 03/01/2018 FINDINGS: Poststernotomy change. Electronic device has been placed over the left heart border. Heart size is borderline enlarged. Vascular slightly increased but without overt failure. Slight perihilar opacities are noted, may reflect mild edema versus less likely infiltrate. Unchanged elevated right diaphragm. No focal lobar infiltrate. IMPRESSION: 1. Findings do suggest a likely mild central vascular congestion. Dictated by: Dictated on workstation # [id number]
--- NOTE | 2021-12-19 13:55 | Diagnostic Imaging Report ---
PROCEDURE: CT abdomen and pelvis with contrast. TECHNIQUE: Multiple contiguous axial images were obtained through the abdomen and pelvis after administration of intravenous contrast. Auto Exposure Controls were utilized during the CT exam to meet ALARA standards for radiation dose reduction. All CT scans use one or more of the following dose optimizing techniques: automated exposure control, MA and/or KvP adjustment based on patient size and exam type or iterative reconstruction. INDICATION: Right-sided abdominal pain COMPARISON: None available FINDINGS: The visualized lung bases are clear. Tiny hiatal hernia. 1.3 cm hypodensity is identified involving the anterior aspect of the dome of the liver. The liver is otherwise unremarkable. The spleen is unremarkable. The adrenal glands are unremarkable. The pancreas is unremarkable. Small diverticulum associated with the 2nd portion of the duodenum without adjacent inflammatory stranding. No abnormal dilatation of the common bile duct. The gallbladder is at upper limits of normal in size. There is suggestion of possible pericholecystic fluid, particularly seen on the coronal images. Calcifications with associated atrophy involving the inferior pole of the right kidney. The right kidney and right ureter is otherwise unremarkable. 6 mm nonobstructing left renal calculus. The left kidney and left ureter are otherwise unremarkable. Moderate vascular calcifications without aneurysmal dilatation of the abdominal aorta. No evidence of acute appendicitis. The urinary bladder is unremarkable. Peripheral calcifications associated with the uterus. Otherwise, the uterus and adnexal structures are unremarkable for age. No bowel obstruction or pneumatosis. Mild colonic diverticulosis without CT evidence of diverticulitis. No significant adenopathy, free air, or free fluid in abdomen or pelvis. Scattered osseous degenerative changes without acute osseous abnormality. IMPRESSION: The gallbladder is at upper limits of normal in size with suggestion of pericholecystic fluid. This raises the question of the acute cholecystitis. Recommend clinical correlation. If there is clinical concern for acute cholecystitis, a right upper quadrant ultrasound would be recommended. Mild colonic diverticulosis without CT evidence of diverticulitis. Nonobstructing left renal calculus. Indeterminate hepatic hypodensity. This may simply relate to transient hepatic arterial defect as this is abutting the diaphragmatic surface, though mass lesions not excluded. Recommend a nonemergent CT of the abdomen with and without contrast using hepatic mass protocol for further evaluation. Additional findings as above. Dictated by: Dictated on workstation # [id number]
[2021-12-19] MEDS ORDERED: PIPERACILLIN SODIUM/TAZOBACTAM 4.5 GM in NS (IVPB) 100 ML IV ONE (14:15)
[2021-12-19 15:45] VITALS: BP 132/83
[2021-12-19] MEDS ORDERED: ONDANSETRON 4 MG/2 ML (SDV) Z0FRAN IV PRN (16:00)
[2021-12-19] MEDS ORDERED: fentaNYL INJ 100 MCG/2 ML AMP IV PRN (16:15)
--- NOTE | 2021-12-19 16:19 | HISTORY AND PHYSICAL ---
DATE OF SERVICE: ATTENDING PRIMARY CARE PHYSICIAN: Veronica Hargrove MD HISTORY OF PRESENT ILLNESS: The patient is a 76-year-old female, who was brought by private vehicle by her sister for abdominal pain and lethargy. She states that the pain began on 12/13/2021 while she was on vacation in [place] and did develop one day of nausea and vomiting. She states that her symptoms persisted and eventually when she got home, she continued to have the nausea and vomiting as well as some pain in the right upper abdominal quadrant. She does have a number of medical comorbidities including insulin-dependent diabetes, hypertension, coronary artery disease, peripheral vascular disease as well as sleep apnea and is also on anticoagulation with Plavix and aspirin. She also reports that she was recently started on Eliquis; however, she does not have the reason why. Pain is sharp in nature in the right upper abdominal quadrant, after eating meals she would also have some worsening crampy abdominal pain as well as the nausea and vomiting. A CT scan was performed, which did show a dilated gallbladder with gallbladder wall thickening as well as pericholecystic fluid consistent with either a chronic calculus versus acalculous cholecystitis. She will need to have her gallbladder removed; however, we will hold her anticoagulation and also consult internal medicine as well as cardiology for clearance before proceeding with surgery. PAST MEDICAL HISTORY: Coronary artery disease, sleep apnea, peripheral vascular disease, hypertension, insulin-dependent diabetes, lupus, degenerative joint disease. PAST SURGICAL HISTORY: Coronary artery bypass grafting, cardiac catheterization, coronary arterial stent placement, orthopedic procedure. ALLERGIES: CODEINE, PROPOXYPHENE. MEDICATIONS: Aspirin 81 mg daily, citalopram 40 mg daily, Plavix 75 mg daily, fexofenadine 60 mg p.r.n., gabapentin 100 mg daily, aspartate insulin 5 to 26 units before meals and at bedtime, glargine insulin 80 units daily, lisinopril 25 mg daily, simvastatin 40 mg daily. SOCIAL HISTORY: Negative smoke, negative alcohol. FAMILY HISTORY: Mother, bladder cancer. VITAL SIGNS: Temperature 36.3, blood pressure 197/81, pulse 81, respirations 20, pulse ox 94% on room air. REVIEW OF SYSTEMS: Well-nourished female, currently guarded secondary to the abdominal pain as well as intermittent episodes of nausea appearing. She does not report any hematemesis, no coffee ground emesis. She states that she has had bowel movements, which had been loose. No red blood per rectum, no dark tarry stools. No shortness of breath or any cough. No chest pain, palpitations, diaphoresis. No fever, chills, no recent inadvertent weight loss. All other review of systems negative. PHYSICAL EXAMINATION: CHEST: A few scattered rales bilaterally. HEART: Regular, no murmurs. EXTREMITIES: No lower extremity edema, negative Homans sign. HEENT: No scleral icterus. NECK: No cervical lymphadenopathy. ABDOMEN: Soft, nondistended. There is pain in the right upper abdominal quadrant with a positive Branham sign. No peritoneal signs. SKIN: Warm, dry. LABORATORY DATA: WBC 14.8, hemoglobin 15.5, hematocrit 46, platelets 277. BUN 13, creatinine 1.08. Liver function enzymes are normal. Urinalysis positive for nitrite as well as a large amount of bacteria. ASSESSMENT AND PLAN: A 76-year-old female with either symptomatic chronic calculous cholecystitis versus symptomatic chronic acalculous cholecystitis. Either way, she will need to have her gallbladder removed for symptomatic relief; however, she has been on anticoagulation and we will stop this and also consult internal medicine and cardiology for clearance before proceeding with surgery. Job ID: [id number] DocumentID: [id number] Dictated Date: 12/19/2021 15:16:48 Motor Vehicle Inspector Date: 12/19/2021 16:18:40 Dictated By: YOKO SUTTON MD
[2021-12-19] MEDS: LACTATED RINGERS 1,000 ML IV SCH (17:44)
[2021-12-19 19:22] VITALS: BP 144/74
[2021-12-19] MEDS: APIXABAN 5 MG (ELIQUIS) TABLET PO SCH (19:55)
[2021-12-19] MEDS: PIPERACILLIN SODIUM/TAZOBACTAM 4.5 GM in NS (IVPB) 100 ML IV SCH (19:55)
[2021-12-19] MEDS: inSUlin ASPART (NovoLOG) 1 UNIT/0.01 ML (CHARGE PER UNIT) SC SCH (21:04)
[2021-12-20] VITALS: BP 118/54
[2021-12-20] MEDS: LACTATED RINGERS 1,000 ML IV SCH ×4 (00:21→23:45)
[2021-12-20 04:00] VITALS: BP 128/60
[2021-12-20] MEDS: PIPERACILLIN SODIUM/TAZOBACTAM 4.5 GM in NS (IVPB) 100 ML IV SCH ×3 (04:46→19:51)
[2021-12-20] MEDS: inSUlin ASPART (NovoLOG) 1 UNIT/0.01 ML (CHARGE PER UNIT) SC SCH ×4 (05:22→19:57)
[2021-12-20 06:08] LABS: BASOPHILS % (AUTO) 0 % (0-10); EOSINOPHILS % (AUTO) 0 % (0-10); HEMATOCRIT 37 % (35-52); HEMOGLOBIN 12.4 g/dL (11.5-16.0); LYMPHOCYTES # (AUTO) 1.2 10^3/uL (1.0-4.0); LYMPHOCYTES % (AUTO) 10 % (12-44); MEAN CORPUSCULAR HEMOGLOBIN 31 pg (25-34); MEAN CORPUSCULAR HGB CONC 33 g/dL (32-36); MEAN CORPUSCULAR VOLUME 93 fL (80-99); MEAN PLATELET VOLUME 10.8 fL (9.0-12.2); MONOCYTES % (AUTO) 9 % (0-12); NEUTROPHILS # (AUTO) 9.6 10^3/uL (1.8-7.8); NEUTROPHILS % (AUTO) 81 % (42-75); PLATELET COUNT 211 10^3/uL (130-400)
[2021-12-20 06:34] LABS: POTASSIUM 3.7 MMOL/L (3.6-5.0)
[2021-12-20 06:35] LABS: CALCIUM 8.6 MG/DL (8.5-10.1)
[2021-12-20 06:40] LABS: CREATININE SERUM 0.96 MG/DL (0.60-1.30)
[2021-12-20 08:00] VITALS: BP 121/70
--- NOTE | 2021-12-20 08:58 | Consultation-Cardiology ---
HPI-Cardiology Cardiology Consultation: Date of Consultation 12/20/21 Date of Admission 12/19/21 Attending Physician Carly Martínez MD Admitting Physician Veronica Hargrove MD Consulting Physician IZZY PATIÑO JR, MD HPI: Time Seen by a Provider: 08:55 Chief Complaint: Reason for consultation: Preoperative cardiovascular evaluation in the setting of known cardiac disease. I had the pleasure of seeing Tahmina on the medical/surgical unit at [facility] in [place], [place] this morning. She normally follows with one of my partners. She has a history of coronary artery disease with previous coronary artery bypass surgery, paroxysmal atrial fibrillation, peripheral arterial disease involving the carotid arteries and lower extremities, previous cerebrovascular accident, hypertension, hyperlipidemia, type 2 diabetes mellitus, obstructive sleep apnea, and obesity among other issues. She presented to the emergency room on 12/19 with approximately a 5-7-day history of nausea and vomiting as well as some intermittent right upper quadrant pain. During her evaluation in the emergency room she was felt to have possible acute cholecystitis and was admitted for further treatment and evaluation. She was seen by general surgery who feels that she may warrant cholecystectomy. As such, a cardiology consultation was requested for preoperative evaluation. She denies chest discomfort. She denies dyspnea, paroxysmal nocturnal dyspnea, insomnia, palpitations, lightheadedness, or syncope. She has had intermittent lower extremity edema for the past couple of weeks. Certain portions of this document may have been dictated utilizing voice recognition technology. Inherent to this technology, typographical and grammatical errors may exist. As much as I am diligent to identify and correct these mistakes, some errors may remain in the document. Review of Systems-Cardiology Review of Systems Other comments Review of 10 organ systems is as per the history of present illness, otherwise negative. OAI-Artcql-Uirqoq Hx Patient Social History Smoking Status: Never a Smoker 2nd Hand Smoke Exposure: No Have you traveled recently?: Yes Where was recent travel?: [place] Alcohol Use?: Yes Pt feels they are or have been: No Immunizations Up To Date Tetanus Booster (TDap): Less than 5yrs Date of Pneumonia Vaccine: Jul 04, 2010 Date of Influenza Vaccine: Jul 22, 2020 Past Medical History PMH As described under Assessment. Family Medical History Family History: Diabetes mellitus 19 FATHER G8 BROTHER Neoplasm 19 MOTHER ( with ca of bladder) Allergies and Home Medications Allergies Coded Allergies: codeine (Unverified Allergy, Unknown, N/V, 12/19/21) propoxyphene HCl (Verified Adverse Reaction, Mild, NAUSEA, 12/19/21) Patient Home Medication List Home Medication List Reviewed: Yes Citalopram Hydrobromide (Citalopram HBr) 40 Mg Tablet, 40 MG PO DAILY, (Reported) Entered as Reported by: COSME MARTINEZ on 03/01/181447 Last Action: Last Taken Edited Clopidogrel Bisulfate (Clopidogrel) 75 Mg Tablet, 75 MG PO DAILY Prescribed by: EDA BURGESS on 08/18/20 1020 Last Action: Last Taken Edited Fexofenadine HCl (Fexofenadine HCl) 60 Mg Tablet, 60 MG PO DAILY PRN for ALLERGIES, (Reported) Entered as Reported by: COSME MARTINEZ on 03/01/181523 Last Action: Last Taken Edited Gabapentin (Gabapentin) 100 Mg Capsule, 100 MG PO DAILY, (Reported) Entered as Reported by: COSME MARTINEZ on 03/01/181447 Last Action: Last Taken Edited Insulin Glargine,Hum.rec.anlog (Toujeo Solostar) 300 Unit/1 Ml Insuln.pen, 80 UNITS SC DAILY, (Reported) Entered as Reported by: COSME MARTINEZ on 03/01/181458 Last Action: Last Taken Edited Multivitamin (Daily Multiple Vitamin) 1 Each Tablet, 1 TAB PO DAILY, (Reported) Entered as Reported by: COSME MARTINEZ on 03/01/181526 Last Action: Last Taken Edited Simvastatin (Simvastatin) 40 Mg Tablet, 40 MG PO HS, (Reported) Entered as Reported by: COSME MARTINEZ on 03/01/181447 Last Action: Last Taken Edited Discontinued Medications Aspirin (Aspirin EC) 81 Mg Tablet.dr, 81 MG PO DAILY, (Reported) Discontinued Reason: No Longer Taking Entered as Reported by: COSME MARTINEZ on 03/01/181523 Last Action: Discontinued Insulin Aspart (Novolog Flexpen) 300 Units/3 Ml Solution, 15-26 UNITS SC TIDAC, (Reported) Discontinued Reason: No Longer Taking Entered as Reported by: COSME MARTINEZ on 03/01/181458 Last Action: Discontinued Lisinopril (Lisinopril) 2.5 Mg Tablet, 2.5 MG PO DAILY, (Reported) Discontinued Reason: No Longer Taking Entered as Reported by: COSME K MICHELLE on 03/01/18 3928 Last Action: Discontinued Exam Vital Signs Vital Signs Date Time Temp Pulse Resp B/P (MAP) Pulse Ox O2 Delivery O2 Flow Rate FiO2 12/20/21 08:00 Room Air 12/20/21 08:00 37.0 95 20 121/70 (87) 91 Physical Exam General: Alert. No acute distress. Well nourished and appears stated age. She is obese. Eye: Extraocular movements are intact. Conjunctivae are clear. There are no xanthelasma. HENT: Normocephalic. Atraumatic. Carotid pulsations 2/2 without bruits. Neck: Jugular venous pressure does not appear elevated. No thyromegaly appreciated. Respiratory: Lungs are clear to auscultation. Respirations are non-labored. B reath sounds are equal. Symmetrical chest wall expansion. Cardiovascular: Normal rate. Regular rhythm. No murmur. No gallop. Point of maximal impulse is not appear displaced. Good pulses equal in all extremities. 1+ bilateral pretibial edema. Gastrointestinal: Soft. Normal bowel sounds. Skin: Skin turgor is normal. There is no pallor. Musculoskeletal: No kyphosis or scoliosis appreciated. Neurologic: Alert and oriented to person, place, time. Cranial nerves 3-12 appear grossly intact. The patient has good motor tone strength in the upper and lower extremities bilaterally. Psychiatric: Cooperative. Appropriate mood & affect. Labs Laboratory Tests Test 12/19/21 12:18 12/19/21 13:10 12/19/21 17:47 12/19/21 20:50 Range/Units White Blood Count 14.8 H 4.3-11.0 10^3/uL Red Blood Count 5.02 3.80-5.11 10^6/uL Hemoglobin 15.5 11.5-16.0 g/dL Hematocrit 46 35-52 % Mean Corpuscular Volume 92 80-99 fL Mean Corpuscular Hemoglobin 31 25-34 pg Mean Corpuscular Hemoglobin Concent 34 32-36 g/dL Red Cell Distribution Width 13.0 10.0-14.5 % Platelet Count 277 130-400 10^3/uL Mean Platelet Volume 10.4 9.0-12.2 fL Immature Granulocyte % (Auto) 0 % Neutrophils (%) (Auto) 88 H 42-75 % Lymphocytes (%) (Auto) 6 L 12-44 % Monocytes (%) (Auto) 5 0-12 % Eosinophils (%) (Auto) 0 0-10 % Basophils (%) (Auto) 0 0-10 % Neutrophils # (Auto) 13.1 H 1.8-7.8 10^3/uL Lymphocytes # (Auto) 0.9 L 1.0-4.0 10^3/uL Monocytes # (Auto) 0.8 0.0-1.0 10^3/uL Eosinophils # (Auto) 0.0 0.0-0.3 10^3/uL Basophils # (Auto) 0.0 0.0-0.1 10^3/uL Immature Granulocyte # (Auto) 0.0 0.0-0.1 10^3/uL Neutrophils % (Manual) 86 % Lymphocytes % (Manual) 6 % Monocytes % (Manual) 4 % Eosinophils % (Manual) 0 % Basophils % (Manual) 0 % Band Neutrophils 4 % Blood Morphology Comment NORMAL Sodium Level 136 135-145 MMOL/L Potassium Level 4.1 3.6-5.0 MMOL/L Chloride Level 97 L 98-107 MMOL/L Carbon Dioxide Level 21 21-32 MMOL/L Anion Gap 18 H 5-14 MMOL/L Blood Urea Nitrogen 13 7-18 MG/DL Creatinine 1.08 0.60-1.30 MG/DL Estimat Glomerular Filtration Rate 54 BUN/Creatinine Ratio 12 Glucose Level 299 H 70-105 MG/DL Calcium Level 9.9 8.5-10.1 MG/DL Corrected Calcium 9.7 8.5-10.1 MG/DL Magnesium Level 1.4 L 1.6-2.4 MG/DL Total Bilirubin 1.0 0.1-1.0 MG/DL Aspartate Amino Transf (AST/SGOT) 18 5-34 U/L Alanine Aminotransferase (ALT/SGPT) 16 0-55 U/L Alkaline Phosphatase 83 40-136 U/L Total Protein 7.7 6.4-8.2 GM/DL Albumin 4.3 3.2-4.5 GM/DL Urine Color YELLOW Urine Clarity SL CLOUDY Urine pH 6.0 5-9 Urine Specific [place] 1.025 H 1.016-1.022 Urine Protein TRACE H NEGATIVE Urine Glucose (UA) 2+ H NEGATIVE Urine Ketones 2+ H NEGATIVE Urine Nitrite POSITIVE H NEGATIVE Urine Bilirubin NEGATIVE NEGATIVE Urine Urobilinogen 0.2 < = 1.0 MG/DL Urine Leukocyte Esterase NEGATIVE NEGATIVE Urine RBC (Auto) NEGATIVE NEGATIVE Urine RBC NONE /HPF Urine WBC NONE /HPF Urine Squamous Epithelial Cells 0-2 /HPF Urine Crystals NONE /LPF Urine Bacteria LARGE H /HPF Urine Casts NONE /LPF Urine Mucus NEGATIVE /LPF Urine Culture Indicated YES Glucometer 252 H 262 H 70-110 MG/DL Test 12/20/21 04:57 12/20/21 05:30 12/20/21 11:06 Range/Units Glucometer 221 H 70-110 MG/DL White Blood Count 12.0 H 4.3-11.0 10^3/uL Red Blood Count 4.02 3.80-5.11 10^6/uL Hemoglobin 12.4 11.5-16.0 g/dL Hematocrit 37 35-52 % Mean Corpuscular Volume 93 80-99 fL Mean Corpuscular Hemoglobin 31 25-34 pg Mean Corpuscular Hemoglobin Concent 33 32-36 g/dL Red Cell Distribution Width 13.2 10.0-14.5 % Platelet Count 211 130-400 10^3/uL Mean Platelet Volume 10.8 9.0-12.2 fL Immature Granulocyte % (Auto) 0 % Neutrophils (%) (Auto) 81 H 42-75 % Lymphocytes (%) (Auto) 10 L 12-44 % Monocytes (%) (Auto) 9 0-12 % Eosinophils (%) (Auto) 0 0-10 % Basophils (%) (Auto) 0 0-10 % Neutrophils # (Auto) 9.6 H 1.8-7.8 10^3/uL Lymphocytes # (Auto) 1.2 1.0-4.0 10^3/uL Monocytes # (Auto) 1.0 0.0-1.0 10^3/uL Eosinophils # (Auto) 0.0 0.0-0.3 10^3/uL Basophils # (Auto) 0.0 0.0-0.1 10^3/uL Immature Granulocyte # (Auto) 0.1 0.0-0.1 10^3/uL Sodium Level 134 L 135-145 MMOL/L Potassium Level 3.7 3.6-5.0 MMOL/L Chloride Level 99 98-107 MMOL/L Carbon Dioxide Level 23 21-32 MMOL/L Anion Gap 12 5-14 MMOL/L Blood Urea Nitrogen 10 7-18 MG/DL Creatinine 0.96 0.60-1.30 MG/DL Estimat Glomerular Filtration Rate 62 BUN/Creatinine Ratio 10 Glucose Level 212 H 70-105 MG/DL Calcium Level 8.6 8.5-10.1 MG/DL Triglycerides Level 62 <150 MG/DL Cholesterol Level 94 < 200 MG/DL LDL Cholesterol Direct 42 1-129 MG/DL VLDL Cholesterol 12 5-40 MG/DL HDL Cholesterol 36 L 40-60 MG/DL Radiology REGADENOSON NUCLEAR STRESS TEST (12/15/2020): 1. This study is indicative of a small to moderate amount of basal inferior ischemia. 2. Normal regional wall motion. 3. Normal to hyperdynamic left ventricular systolic function with a calculated ejection fraction of 86%. ECG Impression ECG Comment Electrocardiogram from earlier today shows sinus rhythm with incomplete right bundle branch block and nonspecific anterior T wave changes. Diagnosis/Problems Diagnosis/Problems (1) Preoperative cardiovascular examination Assessment & Plan: She had a nuclear stress test in 2020 that showed a mild to moderate amount of ischemia with a normal ejection fraction. Although she does not report any cardiac symptoms other than some peripheral edema, I suspect her exercise capacity may be somewhat limited. Based upon her overall clinical status and the results of the most recent stress test which was being performed mainly as a follow-up, she will likely be at moderate risk of a perioperative cardiac event while undergoing cholecystectomy. The risk can be kept to a minimum by continuing all of her cardiac medications perioperatively. Her apixaban should be stopped 1 day prior to surgery and resumed as soon as possible following surgery. She tells me she was also taking clopidogrel at home. She has not taken this for 2 days. She has not had any recent coronary revascularization. Long-term, the combination of apixaban and clopidogrel may increase her risk of hemorrhagic side effects from dual pathway inhibition. I would suggest we hold off on resuming clopidogrel following her surgery and just keep her on apixaban. Her regular cashier and salesperson, Dr. Burgess, will see her tomorrow. (2) Coronary artery disease without angina pectoris Assessment & Plan: She is not having any angina at this point in time. Her most recent nuclear stress test showed mild to moderate inferobasal ischemia as outlined above. When she last saw Dr. Burgess in follow-up, the plan was for ongoing medical therapy with no plan for cardiac catheterization. I recommend she continue beta-yulia and statin medication perioperatively. I have reordered her simvastatin. (3) Paroxysmal atrial fibrillation Assessment & Plan: She has a history of paroxysmal atrial fibrillation but is in sinus rhythm today. She has been ordered for her apixaban. As above, the apixaban should be held 1 day prior to surgery and resumed as soon as possible following surgery. Continue beta-yulia for rate control in the event she has recurrent atrial fibrillation. (4) Primary hypertension Assessment & Plan: Continue outpatient antihypertensive medication. (5) Mixed hyperlipidemia Assessment & Plan: Continue simvastatin. (6) Peripheral arterial disease Assessment & Plan: She seems to be asymptomatic with this. This can be followed by her regular cashier and salesperson after discharge. This should not impact her gallbladder surgery. (7) Obstructive sleep apnea of adult Assessment & Plan: She should continue with her CPAP which she brought with her to the hospital. IZZY PATIÑO JR, MD Dec 20, 2021 08:58
[2021-12-20 09:23] LABS: CHOLESTEROL 94 MG/DL (< 200); HDL CHOLESTEROL 36 MG/DL (40-60); TRIGLYCERIDES 62 MG/DL (<150); VLDL CHOLESTEROL 12 MG/DL (5-40)
--- NOTE | 2021-12-20 09:30 | Diagnostic Imaging Report ---
PROCEDURE: US Gallbladder. TECHNIQUE: Multiple real-time grayscale images were obtained over the right upper quadrant in various projections. INDICATION: Abdominal pain. FINDINGS: Overall quality of study is limited due to patient body habitus. The liver is normal in size at 12.5 cm. There does appear to be some increased echogenicity throughout the liver consistent with hepatic steatosis. Portal vein is patent and shows normal direction of flow. No definite gallstones or sludge are identified. There is no significant wall thickening or pericholecystic fluid. No definite biliary duct dilatation is identified. Pancreas is poorly visualized due to bowel gas. The visualized portions of the aorta are nonaneurysmal. IVC is patent. Right kidney is without calculi or hydronephrosis. There is no ascites. IMPRESSION: 1. Somewhat limited study due to patient body habitus. There are findings of hepatic steatosis. There is no evidence of cholelithiasis or acute cholecystitis. Dictated by: Dictated on workstation # [id number]
[2021-12-20] MEDS: meTOprolol SUCCINATE 100 MG (TOPROL XL) TAB PO SCH (10:39)
[2021-12-20] MEDS: PANTOPRAZOLE 40 MG (PROTONIX) VIAL IV SCH (10:40)
[2021-12-20] MEDS: APIXABAN 5 MG (ELIQUIS) TABLET PO SCH ×2 (10:40→19:56)
[2021-12-20] MEDS: FUROSEMIDE 40 MG (LASIX) TAB PO SCH (10:40)
--- NOTE | 2021-12-20 11:11 | Consultation - Hospitalist ---
HPI History of Present Illness: HPI/Chief Complaint Pt is a 76yoCF with a PMH of HTN, HLD, IDDMII, CAD s/p CABG who presented to the ER due to abdominal pain. She reports that he pain started 20 years ago but worsening last week while they were on vacation in [place]. CT abdomen was done in the ER concerning for cholecystitis. She was admitted to surgery and I am consulted for medical management. She reports feeling very well this morning and has no complaints. Abdominal pain has improved. Her only request is to go home today. Source: patient Exam Limitations: no limitations Date Seen 12/20/21 Attending Physician Carly Martínez MD PCP Veronica Hargrove MD Referring Physician Date of Admission Dec 19, 2021 at 14:14 Home Medications & Allergies Home Medications Reviewed patient Home Medication Reconciliation performed by pharmacy medication reconciliations chemical technician and/or nursing. Patients Allergies have been reviewed. Allergies Allergies Coded Allergies codeine (Unverified Allergy, Unknown, N/V, 12/19/21) propoxyphene HCl (Verified Adverse Reaction, Mild, NAUSEA, 12/19/21) Past Ztpbdzw-Vwaziv-Ehozeb Hx Patient Social History Tobacco Use?: No Smoking Status: Never a Smoker Use of E-Cig and/or Vaping dev: No Substance use?: No Alcohol Use?: Yes Alcohol type: Wine Alcohol Frequency: Daily Pt feels they are or have been: No Immunizations Up To Date Date of Influenza Vaccine: Jul 22, 2020 First/Initial COVID19 Vaccinat: 12/05/20 Second COVID19 Vaccination Guille: 01/05/21 Tetanus Booster (TDap): Unknown Hepatitis A: Yes Hepatitis B: Yes Date of Pneumonia Vaccine: Jul 04, 2010 Seasonal Allergies Seasonal Allergies: No Current Status status: No status: No Advance Directives: No Communicates: Verbally Primary Language: Burundian Preferred Spoken Language: Burundian Is interpretation needed?: No Sensory deficits: Hearing impairment Implanted or Applied Medical D: CPAP, Stents, Other Past Medical History Surgeries: CABG, Coronary Stent, Orthopedic Sleep Apnea Currently Using CPAP: Yes Currently Using BIPAP: No Coronary Artery Disease, Hypertension Sexually Transmitted Disease: No Diabetes, Insulin dep, Lupus Hearing Impairment: Hard of Hearing Blood Disorders: No Family Medical History Reviewed Nursing Family Hx Diabetes mellitus 19 FATHER G8 BROTHER Neoplasm 19 MOTHER ( with ca of bladder) No Pertinent Family Hx Review of Systems Constitutional: No chills, No fever EENTM: no symptoms reported Respiratory: No cough, No short of breath Cardiovascular: No chest pain; Hx of Intervention; No palpitations Gastrointestinal: abdominal pain, nausea, vomiting Musculoskeletal: no symptoms reported Skin: no symptoms reported Psychiatric/Neurological: No Symptoms Reported (but ER notes confusion yesterday) Physical Exam Physical Exam Vital Signs Vital Signs - First Documented 12/19/21 12:12 Temp 36.3 Pulse 81 Resp 20 B/P (MAP) 197/81 (119) Pulse Ox 94 O2 Delivery Room Air Capillary Refill : Less Than 3 Seconds Height, Weight, BMI Height: 5'7.00" Weight: 231lbs. 6.0oz. [id number]; 30.44 BMI Method:Estimated General Appearance: No Apparent Distress, Chronically ill HEENT: PERRL/EOMI, Moist Mucous Membranes; No Scleral Icterus (L), No Scleral Icterus (R) Neck: Normal Inspection, Supple Respiratory: Lungs Clear, No Accessory Muscle Use, No Respiratory Distress Cardiovascular: Regular Rate, Rhythm, Systolic Murmur Gastrointestinal: Normal Bowel Sounds, Non Tender, Soft Extremity: Normal Capillary Refill, No Calf Tenderness, No Pedal Edema Neurologic/Psychiatric: Alert, Oriented x3 Results Results/Procedures Labs Laboratory Tests 12/19/21 12:18 12/20/21 05:30 Patient resulted labs reviewed. Imaging: Reviewed Imaging Report Imaging [facility] [place] NAME: [facility] REC#: [id number] PT STATUS: ADM IN : 1945 PHYSICIAN: TIERA VERNON APRN ADMIT DATE: 12/19/21 Signed Date of Exam:12/19/21 CT ABDOMEN/PELVIS W PROCEDURE: CT abdomen and pelvis with contrast. TECHNIQUE: Multiple contiguous axial images were obtained through the abdomen and pelvis after administration of intravenous contrast. Auto Exposure Controls were utilized during the CT exam to meet ALARA standards for radiation dose reduction. All CT scans use one or more of the following dose optimizing techniques: automated exposure control, MA and/or KvP adjustment based on patient size and exam type or iterative reconstruction. INDICATION: Right-sided abdominal pain COMPARISON: None available FINDINGS: The visualized lung bases are clear. Tiny hiatal hernia. 1.3 cm hypodensity is identified involving the anterior aspect of the dome of the liver. The liver is otherwise unremarkable. The spleen is unremarkable. The adrenal glands are unremarkable. The pancreas is unremarkable. Small diverticulum associated with the 2nd portion of the duodenum without adjacent inflammatory stranding. No abnormal dilatation of the common bile duct. The gallbladder is at upper limits of normal in size. There is suggestion of possible pericholecystic fluid, particularly seen on the coronal images. Calcifications with associated atrophy involving the inferior pole of the right kidney. The right kidney and right ureter is otherwise unremarkable. 6 mm nonobstructing left renal calculus. The left kidney and left ureter are otherwise unremarkable. Moderate vascular calcifications without aneurysmal dilatation of the abdominal aorta. No evidence of acute appendicitis. The urinary bladder is unremarkable. Peripheral calcifications associated with the uterus. Otherwise, the uterus and adnexal structures are unremarkable for age. No bowel obstruction or pneumatosis. Mild colonic diverticulosis without CT evidence of diverticulitis. No significant adenopathy, free air, or free fluid in abdomen or pelvis. Scattered osseous degenerative changes without acute osseous abnormality. IMPRESSION: The gallbladder is at upper limits of normal in size with suggestion of pericholecystic fluid. This raises the question of the acute cholecystitis. Recommend clinical correlation. If there is clinical concern for acute cholecystitis, a right upper quadrant ultrasound would be recommended. Mild colonic diverticulosis without CT evidence of diverticulitis. Nonobstructing left renal calculus. Indeterminate hepatic hypodensity. This may simply relate to transient hepatic arterial defect as this is abutting the diaphragmatic surface, though mass lesions not excluded. Recommend a nonemergent CT of the abdomen with and without contrast using hepatic mass protocol for further evaluation. Additional findings as above. Dictated by: Dictated on workstation # [id number] Dict: 12/19/21 1344 Trans: 12/19/21 1711 CV [id number] Interpreted by: GERARDO MCCORMACK MD Electronically signed by: GERARDO MCCORMACK MD 12/19/21 3764 Assessment/Plan Assessment and Plan Assess & Plan/Chief Complaint Abdominal pain Concern for cholecystitis on CT Admitted to surgery, management per them Continue pain regimen CLD HTN HLD CAD s/p CABG PAF PAD Cardiology consulted Continue home meds as able Is currently on Eliquis IDDMII SSI Normally on Toujeo, will use Levemir while here, resume home dose Continue home gabapentin DVT ppx: On eliquis Thank you for the consult. No acute medical needs so will round prn. Please call if needed. LUCHO RAZA MD Dec 20, 2021 11:11
[2021-12-20 11:18] VITALS: BP 144/67
[2021-12-20] MEDS ORDERED: SEMA14TA PO ×2 (15:27→18:23)
[2021-12-20] MEDS ORDERED: MTP100TCR PO (15:30)
[2021-12-20] MEDS ORDERED: APIX5TAB PO (15:30)
[2021-12-20] MEDS ORDERED: FURO40TA4 PO (15:30)
[2021-12-20] MEDS ORDERED: CITA40TA13 PO (15:30)
[2021-12-20] MEDS ORDERED: CLOP75TA28 PO (15:30)
[2021-12-20] MEDS ORDERED: INSU100I34 SC (15:30)
[2021-12-20] MEDS ORDERED: METF-397 PO (15:30)
[2021-12-20] MEDS ORDERED: MULT-974 PO (15:32)
[2021-12-20 15:53] VITALS: BP 118/59
[2021-12-20] MEDS: SIMvastatin 40 MG (ZOCOR) TAB PO SCH (19:57)
[2021-12-20 19:58] VITALS: BP 137/70
[2021-12-21 00:30] VITALS: BP 123/74
[2021-12-21 03:20] VITALS: BP 127/78
[2021-12-21] MEDS: PIPERACILLIN SODIUM/TAZOBACTAM 4.5 GM in NS (IVPB) 100 ML IV SCH ×3 (04:22→20:03)
[2021-12-21] MEDS: inSUlin ASPART (NovoLOG) 1 UNIT/0.01 ML (CHARGE PER UNIT) SC SCH ×4 (05:56→20:19)
[2021-12-21 08:15] VITALS: BP 162/72
--- NOTE | 2021-12-21 08:26 | Progress Note - Cardiology ---
Cardiology SOAP Progress Note Subjective: Sitting up in recliner at the bedside States her nausea is better today No c/o CP, SOB, palpitations Objective: I&O/Vital Signs 12/21/21 12/21/21 12/21/21 12/21/21 03:20 07:00 08:00 08:15 Temp 35.9 36.0 Pulse 72 66 79 Resp 18 18 B/P (MAP) 127/78 (94) 162/72 (102) Pulse Ox 93 94 O2 Delivery Room Air Room Air Room Air 12/21/21 11:43 Temp 36.2 Pulse 77 Resp 18 B/P (MAP) 171/77 (108) Pulse Ox 93 O2 Delivery Room Air 12/21/21 00:00 Intake Total 2200 ml Output Total 650 ml Balance 1550 ml Weight (Pounds): 231 Weight (Ounces): 6.0 Weight (Calculated Kilograms): 104.580689 Constitutional: AAO x 3, well-developed, well-nourished Respiratory: No accessory muscle use; chest expansion is symmetric, chest is bilaterally symmetric, lungs clear to auscultation Cardiovascular: regular rate-rhythm, JVD, S1 and S2 Gastrointestional: No guarding; audible bowel sounds Extremities: no lower extremity edema bilateral Neurologic/Psychiatric: other (moves all extremities) Skin: No rash on exposed areas, No ulcerations on exposed areas Results/Procedures: Labs Laboratory Tests 12/20/21 15:48: Glucometer 198H 12/21/21 10:44: Glucometer 185H Microbiology 12/19/21 Urine Culture - Final, Complete Escherichia coli Procedures NAME: [facility] REC#: [id number] PT STATUS: ADM IN : 1945 PHYSICIAN: YOKO MARTÍNEZ MD ADMIT DATE: 12/19/21 Signed Date of Exam:12/20/21 US GALLBLADDER [id number] PROCEDURE: US Gallbladder. TECHNIQUE: Multiple real-time grayscale images were obtained over the right upper quadrant in various projections. INDICATION: Abdominal pain. FINDINGS: Overall quality of study is limited due to patient body habitus. The liver is normal in size at 12.5 cm. There does appear to be some increased echogenicity throughout the liver consistent with hepatic steatosis. Portal vein is patent and shows normal direction of flow. No definite gallstones or sludge are identified. There is no significant wall thickening or pericholecystic fluid. No definite biliary duct dilatation is identified. Pancreas is poorly visualized due to bowel gas. The visualized portions of the aorta are nonaneurysmal. IVC is patent. Right kidney is without calculi or hydronephrosis. There is no ascites. IMPRESSION: 1. Somewhat limited study due to patient body habitus. There are findings of hepatic steatosis. There is no evidence of cholelithiasis or acute cholecystitis. Dictated by: Dictated on workstation # [id number] Dict: 12/20/2121 Trans: 12/20/21 1559 [id number] Interpreted by: SEA NOVA MD Electronically signed by: SEA NOVA MD 12/20/21 1557 A/P: Assessment: Abd pain/nausea - management per Dr. Martínez - suspected cholecystitis -plan is for cholecystectomy on 12-22-21 PAD - Per peripheral angiogram of Aug 18, 2020: No significant abdominal aortic stenosis or aneurysm or dissection. 2. 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 On the left side, there is 60% to 70% stenosis in the distal superficial femoral and 60% to 70% stenosis in the left popliteal and the left tibioperoneal trunk. The left anterior tibial is occluded in its proximal to mid portion. On the right side, there is proximal to mid vessel occlusion of the anterior tibial and the peroneal and there is a 1-vessel runoff (posterior tibial). 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 Way at [facility], [place] in September 2009. - Cardiac cath of 01-06-2015 showed occluded aortocoronary grafts, one to the PDA of the RCA and another to the posterolateral branch of the RCA. Patent left internal mammary artery graft to the distal LAD. This is a small caliber graft. Successful balloon angioplasty of the ostium of the PDA of the RCA with reduction of stenoses from 95-99% to approximately 50%. The distal posterolateral branch to the RCA also has 95-99% ostial stenosis, is of small caliber, and could not be wired - MPI of 12-15-20 is indicative of a small to moderate amount of basal inferior ischemia. Normal regional wall motion. Normal to hyperdynamic left ventricular systolic function with a calculated ejection fraction of 86%. ( Desires conservative management per discussion of 12-24-20 and 03-26-21) - Echocardiogram of 12-17-20 showed LVEF 55-60%. Mild TR Maturity onset diabetes mellitus - managed and followed by Dr Hargrove. Hypertension - controlled Intermittent anxiety - currently controlled. Chronic backache - currently controlled. Hyperlipidemia - being treated with simvastatin - managed by PCP Elevated body mass index - of approximately 35. Leg swelling - following vein harvest for coronary artery bypass surgery in 2008. This has remained stable. Carotid dz - Mild carotid arterial disease per carotid ultrasound of Jun 2018 Ortho - Previous right ankle fracture in September 2012 TREVER - diagnosed in early May 2018, being treated with CPAP (managed by Dr Palm) Plan: Complex management issue. She has cholecystitis for which cholecystectomy is planned by Dr. Martínez for tomorrow She has a known h/o PAF for which she has been OAC with Eliquis for stroke prophylaxis We feel her risk for non-cardiac surgery is intermediate. Eliquis is being held in anticipation of surgery tomorrow. We advise Eliquis be resumed MOIRA following surgery if deemed surgically safe. Monitor lab We have reviewed the progress notes from Dr. Austin in detail RAFAEL POLANCO Dec 21, 2021 08:26
[2021-12-21] MEDS: PANTOPRAZOLE 40 MG (PROTONIX) VIAL IV SCH (09:03)
[2021-12-21] MEDS: meTOprolol SUCCINATE 100 MG (TOPROL XL) TAB PO SCH (09:03)
[2021-12-21] MEDS: APIXABAN 5 MG (ELIQUIS) TABLET PO SCH ×2 (09:03→19:51)
[2021-12-21] MEDS: FUROSEMIDE 40 MG (LASIX) TAB PO SCH (09:04)
[2021-12-21 11:43] VITALS: BP 171/77
[2021-12-21] MEDS: LACTATED RINGERS 1,000 ML IV SCH ×2 (12:04→18:41)
--- NOTE | 2021-12-21 12:19 | Progress Note - Cardiology ---
Cardiology SOAP Progress Note Subjective: Gen weakness and malaise Intermittent abd discomfort Poor appetite No cp or palp or syncope No shortness of breath at rest Objective: I&O/Vital Signs 12/21/21 12/21/21 12/21/21 12/21/21 00:30 01:35 03:20 07:00 Temp 36.3 35.9 Pulse 74 72 72 66 Resp 18 18 B/P (MAP) 123/74 (90) 127/78 (94) Pulse Ox 95 93 O2 Delivery Room Air Room Air 12/21/21 12/21/21 12/21/21 08:00 08:15 11:43 Temp 36.0 36.2 Pulse 79 77 Resp 18 18 B/P (MAP) 162/72 (102) 171/77 (108) Pulse Ox 94 93 O2 Delivery Room Air Room Air Room Air 12/21/21 00:00 Intake Total 2200 ml Output Total 650 ml Balance 1550 ml Weight (Pounds): 231 Weight (Ounces): 6.0 Weight (Calculated Kilograms): 104.938026 Constitutional: AAO x 3, well-developed, well-nourished Respiratory: No accessory muscle use; chest expansion is symmetric, chest is bilaterally symmetric, lungs clear to auscultation Cardiovascular: regular rate-rhythm, JVD, S1 and S2 Gastrointestional: No guarding; audible bowel sounds Extremities: no lower extremity edema bilateral Neurologic/Psychiatric: other (moves all extremities) Skin: No rash on exposed areas, No ulcerations on exposed areas Results/Procedures: Labs Laboratory Tests 12/20/21 15:48: Glucometer 198H 12/21/21 10:44: Glucometer 185H Microbiology 12/19/21 Urine Culture - Final, Complete Escherichia coli Laboratory Tests 12/19/21 12:18 12/20/21 05:30 A/P: Assessment: Abd pain/nausea - suspected cholecystitis - Dr Martínez cholecystectomy on 12-22-21 PAD - Per peripheral angiogram of Aug 18, 2020: No significant abdominal aortic stenosis or aneurysm or dissection. 2. 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 On the left side, there is 60% to 70% stenosis in the distal superficial femoral and 60% to 70% stenosis in the left popliteal and the left tibioperoneal trunk. The left anterior tibial is occluded in its proximal to mid portion. On the right side, there is proximal to mid vessel occlusion of the anterior tibial and the peroneal and there is a 1-vessel runoff (posterior tibial). 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 Way at [facility] in September 2009. - Cardiac cath of 01-06-2015 showed occluded aortocoronary grafts, one to the PDA of the RCA and another to the posterolateral branch of the RCA. Patent left internal mammary artery graft to the distal LAD. This is a small caliber graft. Successful balloon angioplasty of the ostium of the PDA of the RCA with reduction of stenoses from 95-99% to approximately 50%. The distal postero lateral branch to the RCA also has 95-99% ostial stenosis, is of small caliber, and could not be wired - MPI of 12-15-20 is indicative of a small to moderate amount of basal inferior ischemia. Normal regional wall motion. Normal to hyperdynamic left ventricular systolic function with a calculated ejection fraction of 86%. ( Desires conservative management per discussion of 12-24-20 and 03-26-21) - Echocardiogram of 12-17-20 showed LVEF 55-60%. Mild TR Maturity onset diabetes mellitus - managed and followed by Dr Hargrove. Hypertension - controlled Intermittent anxiety - currently controlled. Chronic backache - currently controlled. Hyperlipidemia - being treated with simvastatin - managed by PCP Elevated body mass index - of approximately 35. Leg swelling - following vein harvest for coronary artery bypass surgery in 2008. This has remained stable. Carotid dz - Mild carotid arterial disease per carotid ultrasound of Jun 2018 Ortho - Previous right ankle fracture in September 2012 TREVER - diagnosed in early May 2018, being treated with CPAP (managed by Dr Palm) Plan: Complex management issue. She has cholecystitis for which cholecystectomy is planned by Dr. Martínez for tomorrow She has a known h/o PAF for which she has been OAC with Eliquis for stroke pro phylaxis We feel her risk for non-cardiac surgery is intermediate. Eliquis is being held in anticipation of surgery tomorrow. We advise Eliquis be resumed MOIRA following surgery, when deemed surgically safe. Monitor lab I interviewed and examined her, reviewed her records in detail, and answered her and her sisters CV-related questions EDA LANG MD FACP FACC CCDS Dec 21, 2021 12:19
[2021-12-21 15:47] VITALS: BP 151/80
[2021-12-21 18:21] LABS: BASOPHILS % (AUTO) 0 % (0-10); EOSINOPHILS # (AUTO) 0.2 10^3/uL (0.0-0.3); EOSINOPHILS % (AUTO) 2 % (0-10); HEMATOCRIT 41 % (35-52); HEMOGLOBIN 13.5 g/dL (11.5-16.0); LYMPHOCYTES # (AUTO) 1.3 10^3/uL (1.0-4.0); LYMPHOCYTES % (AUTO) 13 % (12-44); MEAN CORPUSCULAR HEMOGLOBIN 31 pg (25-34); MEAN CORPUSCULAR HGB CONC 33 g/dL (32-36); MEAN CORPUSCULAR VOLUME 94 fL (80-99); MEAN PLATELET VOLUME 10.6 fL (9.0-12.2); MONOCYTES # (AUTO) 0.8 10^3/uL (0.0-1.0); MONOCYTES % (AUTO) 8 % (0-12); NEUTROPHILS # (AUTO) 7.5 10^3/uL (1.8-7.8); NEUTROPHILS % (AUTO) 77 % (42-75); PLATELET COUNT 249 10^3/uL (130-400); WHITE BLOOD COUNT 9.7 10^3/uL (4.3-11.0)
[2021-12-21 18:32] LABS: ALBUMIN 3.4 GM/DL (3.2-4.5); POTASSIUM 3.1 MMOL/L (3.6-5.0)
[2021-12-21 18:33] LABS: CALCIUM 8.6 MG/DL (8.5-10.1)
[2021-12-21 18:35] LABS: TOTAL PROTEIN 6.6 GM/DL (6.4-8.2)
[2021-12-21 18:36] LABS: BILIRUBIN,TOTAL 1.1 MG/DL (0.1-1.0)
[2021-12-21 18:38] LABS: CREATININE SERUM 0.97 MG/DL (0.60-1.30)
--- NOTE | 2021-12-21 18:56 | Progress Note ---
Subjective Date Seen by a Provider: Dec 21, 2021 Time Seen by a Provider: 18:00 Subjective/Events-last exam doing ok. states abd pain improving. tolerating diet. no fever/chills. Objective Exam Vital Signs Date Time Temp Pulse Resp B/P (MAP) Pulse Ox O2 Delivery O2 Flow Rate FiO2 12/21/21 15:47 36.0 87 20 151/80 (103) 93 Room Air 12/21/21 13:00 72 12/21/21 11:43 36.2 77 18 171/77 (108) 93 Room Air 12/21/21 08:15 36.0 79 18 162/72 (102) 94 Room Air 12/21/21 08:00 Room Air 12/21/21 07:00 66 12/21/21 03:20 35.9 72 18 127/78 (94) 93 Room Air 12/21/21 01:35 72 12/21/21 00:30 36.3 74 18 123/74 (90) 95 Room Air 12/20/21 20:00 Room Air 12/20/21 19:58 36.8 70 22 137/70 (92) 91 Room Air 12/20/21 19:00 80 I & O 12/21/21 07:00 Intake Total 3300 ml Output Total 650 ml Balance 2650 ml Capillary Refill : Less Than 3 Seconds General Appearance: No Apparent Distress HEENT: PERRL/EOMI Neck: Full Range of Motion Respiratory: Chest Non Tender, Lungs Clear Cardiovascular: Regular Rate, Rhythm Gastrointestinal: normal bowel sounds, soft, tenderness Extremity: Normal Capillary Refill Neurologic/Psychiatric: Alert, Oriented x3 Skin: Normal Color Lymphatic: No Adenopathy Results Lab Laboratory Tests 12/21/21 10:44: Glucometer 185H 12/21/21 15:47: Glucometer 234H 12/21/21 18:07: White Blood Count 9.7, Red Blood Count 4.38, Hemoglobin 13.5, Hematocrit 41, Mean Corpuscular Volume 94, Mean Corpuscular Hemoglobin 31, Mean Corpuscular Hemoglobin Concent 33, Red Cell Distribution Width 13.0, Platelet Count 249, Mean Platelet Volume 10.6, Immature Granulocyte % (Auto) 0, Neutrophils (%) (Auto) 77H, Lymphocytes (%) (Auto) 13, Monocytes (%) (Auto) 8, Eosinophils (%) (Auto) 2, Basophils (%) (Auto) 0, Neutrophils # (Auto) 7.5, Lymphocytes # (Auto) 1.3, Monocytes # (Auto) 0.8, Eosinophils # (Auto) 0.2, Basophils # (Auto) 0.0, Immature Granulocyte # (Auto) 0.0, Sodium Level 135, Potassium Level 3.1L, Chloride Level 96L, Carbon Dioxide Level 26, Anion Gap 13, Blood Urea Nitrogen 7, Creatinine 0.97, Estimat Glomerular Filtration Rate 61, BUN/Creatinine Ratio 7, Glucose Level 272H, Calcium Level 8.6, Corrected Calcium 9.1, Total Bilirubin 1.1H, Aspartate Amino Transf (AST/SGOT) 13, Alanine Aminotransferase (ALT/SGPT) 14, Alkaline Phosphatase 78, Total Protein 6.6, Albumin 3.4 Microbiology 12/19/21 Urine Culture - Final, Complete Escherichia coli Assessment/Plan Assessment/Plan Assess & Plan/Chief Complaint acute cholecystitis. cont IV abx. plan for laparoscopic cholecystectomy tomorrow around 11:30am. YOKO SUTTON MD Dec 21, 2021 18:56
--- NOTE | 2021-12-21 18:57 | Progress Note-Pre Operative ---
Pre-Operative Progress Note H&P Reviewed The H&P was reviewed, patient examined and no changes noted. Date Seen by Provider: Dec 21, 2021 Time Seen by Provider: 18:00 Date H&P Reviewed: Dec 21, 2021 Time H&P Reviewed: 18:00 Pre-Operative Diagnosis: acute cholecystitis YOKO SUTTON MD Dec 21, 2021 18:57
[2021-12-21] MEDS: SIMvastatin 40 MG (ZOCOR) TAB PO SCH (20:02)
[2021-12-21 20:43] VITALS: BP 153/76
[2021-12-22] VITALS (17 sets, daily range): BP systolic 138–185; BP diastolic 57–87
[2021-12-22] MEDS: PIPERACILLIN SODIUM/TAZOBACTAM 4.5 GM in NS (IVPB) 100 ML IV SCH ×3 (04:24→20:10)
[2021-12-22] MEDS: inSUlin ASPART (NovoLOG) 1 UNIT/0.01 ML (CHARGE PER UNIT) SC SCH ×5 (06:00→20:40)
[2021-12-22] MEDS: LACTATED RINGERS 1,000 ML IV SCH (08:30)
[2021-12-22] MEDS: FUROSEMIDE 40 MG (LASIX) TAB PO SCH ×2 (08:34→09:00)
[2021-12-22] MEDS: PANTOPRAZOLE 40 MG (PROTONIX) VIAL IV SCH (08:34)
[2021-12-22] MEDS: meTOprolol SUCCINATE 100 MG (TOPROL XL) TAB PO SCH (08:34)
[2021-12-22] MEDS: APIXABAN 5 MG (ELIQUIS) TABLET PO SCH ×2 (08:34→09:00)
--- NOTE | 2021-12-22 09:15 | Progress Note - Cardiology ---
Cardiology SOAP Progress Note Objective: I&O/Vital Signs 12/22/21 12/22/21 12/22/21 12/22/21 00:31 01:00 04:20 07:00 Temp 36.7 36.7 Pulse 63 73 70 61 Resp 18 18 B/P (MAP) 138/61 (86) 177/83 (114) Pulse Ox 94 93 O2 Delivery Room Air Room Air 12/22/21 12/22/21 08:00 11:38 Temp 37.0 36.5 Pulse 66 70 Resp 18 20 B/P (MAP) 185/73 (110) 172/82 (112) Pulse Ox 92 93 O2 Delivery Room Air Room Air 12/22/21 00:00 Intake Total 1100 ml Balance 1100 ml Weight (Pounds): 231 Weight (Ounces): 6.0 Weight (Calculated Kilograms): 104.032498 Constitutional: AAO x 3, well-developed, well-nourished Respiratory: No accessory muscle use; chest expansion is symmetric, chest is bilaterally symmetric, lungs clear to auscultation Cardiovascular: regular rate-rhythm; No JVD; S1 and S2 Gastrointestional: No guarding; audible bowel sounds Extremities: no lower extremity edema bilateral Neurologic/Psychiatric: other (moves all extremities) Skin: No rash on exposed areas, No ulcerations on exposed areas Results/Procedures: Labs Laboratory Tests 12/21/21 15:47: Glucometer 234H 12/21/21 18:07: White Blood Count 9.7, Red Blood Count 4.38, Hemoglobin 13.5, Hematocrit 41, Mean Corpuscular Volume 94, Mean Corpuscular Hemoglobin 31, Mean Corpuscular Hemoglobin Concent 33, Red Cell Distribution Width 13.0, Platelet Count 249, Mean Platelet Volume 10.6, Immature Granulocyte % (Auto) 0, Neutrophils (%) (Auto) 77H, Lymphocytes (%) (Auto) 13, Monocytes (%) (Auto) 8, Eosinophils (%) (Auto) 2, Basophils (%) (Auto) 0, Neutrophils # (Auto) 7.5, Lymphocytes # (Auto) 1.3, Monocytes # (Auto) 0.8, Eosinophils # (Auto) 0.2, Basophils # (Auto) 0.0, Immature Granulocyte # (Auto) 0.0, Sodium Level 135, Potassium Level 3.1L, Chloride Level 96L, Carbon Dioxide Level 26, Anion Gap 13, Blood Urea Nitrogen 7, Creatinine 0.97, Estimat Glomerular Filtration Rate 61, BUN/Creatinine Ratio 7, Glucose Level 272H, Calcium Level 8.6, Corrected Calcium 9.1, Total Bilirubin 1.1H, Aspartate Amino Transf (AST/SGOT) 13, Alanine Aminotransferase (ALT/SGPT) 14, Alkaline Phosphatase 78, Total Protein 6.6, Albumin 3.4 12/21/21 20:01: Glucometer 260H 12/22/21 05:33: Glucometer 227H Microbiology 12/19/21 Urine Culture - Final, Complete Escherichia coli A/P: Assessment: Abd pain/nausea - cholecystitis - Dr Martínez cholecystectomy on 12-22-21 PAD - Per peripheral angiogram of Aug 18, 2020: No significant abdominal aortic stenosis or aneurysm or dissection. 2. 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 On the left side, there is 60% to 70% stenosis in the distal superficial femoral and 60% to 70% stenosis in the left popliteal and the left tibioperoneal trunk. The left anterior tibial is occluded in its proximal to mid portion. On the right side, there is proximal to mid vessel occlusion of the anterior tibial and the peroneal and there is a 1-vessel runoff (posterior tibial). - Currently not reporting any symptoms of claudication - Plavix tx PAF with RVR first seen on ILR interrogation of 06-20-18 OAC with Eliquis - initiated on 06-20-18 - ok to be held in anticipation of surgery CVA - Ac nonhemorrhagic infarct of the L brain, involving the left carrillo radiata and extending to the post nguyen of the int capsule in March 2018. 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 Way at [facility] in September 2009. - Cardiac cath of 01-06-2015 showed occluded aortocoronary grafts, one to the PDA of the RCA and another to the posterolateral branch of the RCA. Patent left internal mammary artery graft to the distal LAD. This is a small caliber graft. Successful balloon angioplasty of the ostium of the PDA of the RCA with reduction of stenoses from 95-99% to approximately 50%. The distal posterolatera l branch to the RCA also has 95-99% ostial stenosis, is of small caliber, and could not be wired - MPI of 12-15-20 is indicative of a small to moderate amount of basal inferior ischemia. Normal regional wall motion. Normal to hyperdynamic left ventricular s ystolic function with a calculated ejection fraction of 86%. ( Desires conservative management per discussion of 12-24-20 and 03-26-21) - Echocardiogram of 12-17-20 showed LVEF 55-60%. Mild TR Maturity onset diabetes mellitus - managed and followed by Dr Hargrove. Hypertension - controlled Intermittent anxiety - currently controlled. Chronic backache - currently controlled. Hyperlipidemia - being treated with simvastatin - managed by PCP Elevated body mass index - of approximately 35. Leg swelling - following vein harvest for coronary artery bypass surgery in 2008. This has remained stable. Carotid dz - Mild carotid arterial disease per carotid ultrasound of Jun 2018 Ortho - Previous right ankle fracture in September 2012 TREVER - diagnosed in early May 2018, being treated with CPAP (managed by Dr Palm) Plan: Complex management issue. She has cholecystitis for which cholecystectomy is planned by Dr. Martínez for today She has a known h/o PAF for which she has been OAC with Eliquis for stroke prophylaxis We feel her risk for non-cardiac surgery is intermediate. Eliquis is being held in anticipation of surgery today. We advise Eliquis be resumed MOIRA following surgery, when deemed surgically safe. Monitor lab RAFAEL POLANCO Dec 22, 2021 09:15
[2021-12-22] MEDS ORDERED: LIDOCAINE/EPI 2% 1:100,00 (XYLOCAINE) 20 ML VIAL ONE (10:17)
--- NOTE | 2021-12-22 10:35 | Progress Note - Cardiology ---
Cardiology SOAP Progress Note Subjective: No cp or palp or syncope or shortness of breath Gen malaise and weakness Poor appetite Intermittent abd discomfort Objective: I&O/Vital Signs 12/22/21 12/22/21 12/22/21 12/22/21 00:31 01:00 04:20 07:00 Temp 36.7 36.7 Pulse 63 73 70 61 Resp 18 18 B/P (MAP) 138/61 (86) 177/83 (114) Pulse Ox 94 93 O2 Delivery Room Air Room Air 12/22/21 00:00 Intake Total 1100 ml Balance 1100 ml Weight (Pounds): 231 Weight (Ounces): 6.0 Weight (Calculated Kilograms): 104.820097 Constitutional: AAO x 3, well-developed, well-nourished Respiratory: No accessory muscle use; chest expansion is symmetric, chest is bilaterally symmetric, lungs clear to auscultation Cardiovascular: regular rate-rhythm; No JVD; S1 and S2 Gastrointestional: No guarding; audible bowel sounds Extremities: no lower extremity edema bilateral Neurologic/Psychiatric: other (moves all extremities) Skin: No rash on exposed areas, No ulcerations on exposed areas Results/Procedures: Labs Laboratory Tests 12/21/21 10:44: Glucometer 185H 12/21/21 15:47: Glucometer 234H 12/21/21 18:07: White Blood Count 9.7, Red Blood Count 4.38, Hemoglobin 13.5, Hematocrit 41, Mean Corpuscular Volume 94, Mean Corpuscular Hemoglobin 31, Mean Corpuscular Hemoglobin Concent 33, Red Cell Distribution Width 13.0, Platelet Count 249, Mean Platelet Volume 10.6, Immature Granulocyte % (Auto) 0, Neutrophils (%) (Auto) 77H, Lymphocytes (%) (Auto) 13, Monocytes (%) (Auto) 8, Eosinophils (%) (Auto) 2, Basophils (%) (Auto) 0, Neutrophils # (Auto) 7.5, Lymphocytes # (Auto) 1.3, Monocytes # (Auto) 0.8, Eosinophils # (Auto) 0.2, Basophils # (Auto) 0.0, Immature Granulocyte # (Auto) 0.0, Sodium Level 135, Potassium Level 3.1L, Chloride Level 96L, Carbon Dioxide Level 26, Anion Gap 13, Blood Urea Nitrogen 7, Creatinine 0.97, Estimat Glomerular Filtration Rate 61, BUN/Creatinine Ratio 7, Glucose Level 272H, Calcium Level 8.6, Corrected Calcium 9.1, Total Bilirubin 1.1H, Aspartate Amino Transf (AST/SGOT) 13, Alanine Aminotransferase (ALT/SGPT) 14, Alkaline Phosphatase 78, Total Protein 6.6, Albumin 3.4 12/21/21 20:01: Glucometer 260H 12/22/21 05:33: Glucometer 227H Microbiology 12/19/21 Urine Culture - Final, Complete Escherichia coli Laboratory Tests 12/21/21 18:07 A/P: Assessment: Abd pain/nausea - cholecystitis - Dr Martínez cholecystectomy on 12-22-21 PAD - Per peripheral angiogram of Aug 18, 2020: No significant abdominal aortic stenosis or aneurysm or dissection. 2. 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 On the left side, there is 60% to 70% stenosis in the distal superficial femoral and 60% to 70% stenosis in the left popliteal and the left tibioperoneal trunk. The left anterior tibial is occluded in its proximal to mid portion. On the right side, there is proximal to mid vessel occlusion of the anterior tibial and the peroneal and there is a 1-vessel runoff (posterior tibial). 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 Way at [facility] in September 2009. - Cardiac cath of 01-06-2015 showed occluded aortocoronary grafts, one to the PDA of the RCA and another to the posterolateral branch of the RCA. Patent left internal mammary artery graft to the distal LAD. This is a small caliber graft. Successful balloon angioplasty of the ostium of the PDA of the RCA with reduction of stenoses from 95-99% to approximately 50%. The distal posterolateral branch to the RCA also has 95-99% ostial stenosis, is of small caliber, and could not be wired - MPI of 12-15-20 is indicative of a small to moderate amount of basal inferior ischemia. Normal regional wall motion. Normal to hyperdynamic left ventricular systolic function with a calculated ejection fraction of 86%. ( Desires conservative management per discussion of 12-24-20 and 03-26-21) - Echocardiogram of 12-17-20 showed LVEF 55-60%. Mild TR Maturity onset diabetes mellitus - managed and followed by Dr Hargrove. Hypertension - controlled Intermittent anxiety - currently controlled. Chronic backache - currently controlled. Hyperlipidemia - being treated with simvastatin - managed by PCP Elevated body mass index - of approximately 35. Leg swelling - following vein harvest for coronary artery bypass surgery in 2008. This has remained stable. Carotid dz - Mild carotid arterial disease per carotid ultrasound of Jun 2018 Ortho - Previous right ankle fracture in September 2012 TREVER - diagnosed in early May 2018, being treated with CPAP (managed by Dr Palm) Plan: Complex management issue She has cholecystitis for which cholecystectomy is planned by Dr. Martínez for today Cardiac risk for noncardiac surgery is intermediate She has a known h/o PAF for which she has been OAC with Eliquis for stroke prophylaxis. Discussed with patient We feel her risk for non-cardiac surgery is intermediate. Eliquis is being held in anticipation of surgery today. We advise Eliquis be resumed MOIRA following surgery, when deemed surgically safe Replenish lytes as needed and monitor labs EDA LANG MD FACP FAC CCDS Dec 22, 2021 10:35
[2021-12-22] MEDS ORDERED: NEOSTIGMINE 3 MG/3 ML VIAL ONE (13:58)
[2021-12-22] MEDS ORDERED: proPOfol 200 MG/20 ML (DIPRIVAN) VIAL IV ONE (13:58)
[2021-12-22] MEDS ORDERED: ONDANSETRON 4 MG/2 ML (SDV) Z0FRAN ONE (13:58)
[2021-12-22] MEDS ORDERED: LIDOCAINE PF 2% 5 ML (XYLOCAINE) VIAL ONE (13:58)
[2021-12-22] MEDS ORDERED: GLYCOPYRROLATE 0.2 MG/ML (ROBINUL) 2 ML VIAL ONE (13:58)
[2021-12-22] MEDS ORDERED: fentaNYL INJ 100 MCG/2 ML AMP ONE ×2 (13:58→15:39)
[2021-12-22] MEDS ORDERED: ROCURONIUM 10 MG/ML 5 ML SYRINGE IV ONE (13:58)
[2021-12-22] MEDS ORDERED: LACTATED RINGERS 1,000 ML IV PRN (14:45)
--- NOTE | 2021-12-22 15:49 | Progress Note-Post Operative ---
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
--- NOTE | 2021-12-22 16:27 | Anesthesia-General Post-Op ---
General Patient Condition Mental Status/LOC: Same as Preop Cardiovascular: Satisfactory Nausea/Vomiting: Absent Respiratory: Satisfactory Pain: Controlled Complications: Absent Post Op Complications Complications None Follow Up Care/Instructions Patient Instructions None needed. Anesthesia/Patient Condition Patient Condition Patient is doing well, no complaints, stable vital signs, no apparent adverse anesthesia problems. No complications reported per nursing. [place] [facility] [place] Yes DARIO DEL ROSARIO CRNA Dec 22, 2021 16:27
[2021-12-22] MEDS ORDERED: ONDANSETRON 4 MG/2 ML (SDV) Z0FRAN IVP PRN (16:30)
[2021-12-22] MEDS ORDERED: HYDROmorphone 2 MG/ML VIAL (DILAUDID) IV ONE (16:30)
[2021-12-22] MEDS ORDERED: HYDROmorphone 2 MG/ML VIAL (DILAUDID) ONE (16:40)
[2021-12-22] MEDS: SIMvastatin 40 MG (ZOCOR) TAB PO SCH (20:10)
[2021-12-23] VITALS: BP 133/79
--- NOTE | 2021-12-23 01:03 | OPERATIVE REPORT ---
DATE OF SERVICE: 12/22/2021 ATTENDING PRIMARY CARE PHYSICIAN: Veronica Hargrove MD PREOPERATIVE DIAGNOSIS: Acute cholecystitis. POSTOPERATIVE DIAGNOSIS: Acute cholecystitis. PROCEDURE: Laparoscopic cholecystectomy. SURGEON: Yoko Sutton MD. CASHIER ASSOCIATE: Tray Alonzo APRN. ANESTHESIA: General endotracheal. ESTIMATED BLOOD LOSS: 100 mL. FINDINGS: Inflamed gallbladder with thick gelatinous bile and gallbladder wall thickening. DISPOSITION: The patient tolerated the procedure well. INDICATIONS: The patient is a 76-year-old female, who was brought by private vehicle by her sister for right upper abdominal quadrant pain and lethargy. She reported that she was on vacation in [place] on 12/13/2021 and developed nausea and vomiting and eventually got home and the nausea and vomiting persisted as well as the pain. She has number of other medical comorbidities including insulin-dependent diabetes, hypertension, coronary artery disease, peripheral vascular disease, sleep apnea and is also on anticoagulation with Plavix, aspirin as well as Eliquis. A CT scan was performed, which showed gallbladder wall thickening as well as pericholecystic fluid consistent with acute cholecystitis. DESCRIPTION OF PROCEDURE: The patient was brought to the operating room, laid supine on the table. After adequate IV pain and sedative medications and general endotracheal intubation, the abdomen was prepped and draped in standard surgical fashion. A 0.5% Marcaine with epinephrine was used to anesthetize overlying skin left upper abdominal quadrant and a transverse skin incision made using a 15 blade. An 0 silk suture was applied to the medial aspect of incision for retraction and a Veress needle inserted with a low opening pressure of 0 mmHg. The abdomen was then insufflated to 15 mmHg pressure. The Veress needle removed and a 5 mm XL trocar placed followed by a 5 mm 45-degree angle laparoscope visualizing the peritoneal cavity. A 4-quadrant abdominal exploration was performed. There was a significantly inflamed as well as distended gallbladder. Under direct visualization, we then proceeded to place a supraumbilical 10 mm port after the skin and peritoneal lining were anesthetized using 0.5% Marcaine with epinephrine and a transverse skin incision made using a 15 blade. In a similar manner, a right upper abdominal quadrant 5 mm port was placed. The gallbladder was then decompressed with a laparoscopic needle and suction. The patient was then placed in a Trendelenburg position as well as plane right side up, left side a reverse Trendelenburg position as well as plane right side up, left side down. Fundus of gallbladder was then retracted anteriorly and superiorly. The hepatoduodenal ligament was then dissected using cautery as well as blunt dissection using the hook instrument as well as the [place] dissector. The entire critical view of safety was identified including the triangle of Calot as well as the cystic duct and artery as the only two structures going to gallbladder as well as the cystic plate behind the proximal gallbladder. A timeout was then taken and cystic duct and artery were then clipped proximally, distally and cut with EndoShears. The gallbladder was then dissected off the liver bed using electrocautery with visualization of good hemostasis as well as no leaking ducts of Luschka. Due to her previous anticoagulation and mild ooziness, Surgicel was applied to the hepatic fossa. The gallbladder was removed through the 10 mm port site using an EndoCatch bag. The 10 mm port site fascia and peritoneum were then closed using an UR needle and 0 Vicryl suture in a running fashion. The abdomen was desufflated and remaining ports removed. All skin incisions were closed using 4-0 Monocryl running subcuticular sutures. Wounds were then cleaned and covered with a Dermabond. The patient tolerated the procedure well. We will start IV normal pain medication as well as a clear liquid diet and advance as tolerated. When she is tolerating clears, has good pain control with oral pain medications, and is ambulating well, we will discharge her home and we will start her regular anticoagulation regimen starting tomorrow. Job ID: [id number] DocumentID: [id number] Dictated Date: 12/22/2021 15:56:20 Client Account Specialist Date: 12/22/2021 22:11:52 Dictated By: YOKO SUTTON MD
[2021-12-23] MEDS: PIPERACILLIN SODIUM/TAZOBACTAM 4.5 GM in NS (IVPB) 100 ML IV SCH ×3 (04:44→20:01)
[2021-12-23 04:45] VITALS: BP 196/106
[2021-12-23] MEDS: inSUlin ASPART (NovoLOG) 1 UNIT/0.01 ML (CHARGE PER UNIT) SC SCH ×4 (05:35→21:34)
[2021-12-23 07:25] VITALS: BP 138/77
[2021-12-23] MEDS: FUROSEMIDE 40 MG (LASIX) TAB PO SCH (07:57)
--- NOTE | 2021-12-23 08:59 | Progress Note - Cardiology ---
Cardiology SOAP Progress Note Objective: I&O/Vital Signs 12/23/21 12/24/21 12/24/21 12/24/21 22:50 00:00 01:00 03:58 Temp 36.0 35.5 Pulse 75 77 82 Resp 17 21 B/P (MAP) 120/73 (89) 138/83 (101) Pulse Ox 96 91 O2 Delivery Nasal Cannula Nasal Cannula NIV CPAP O2 Flow Rate 2.00 2.00 FiO2 97 12/24/21 12/24/21 12/24/21 12/24/21 07:00 07:25 07:26 07:36 Temp 36.0 Pulse 77 86 Resp 18 B/P (MAP) 143/65 (91) Pulse Ox 95 90 O2 Delivery Nasal Cannula Room Air Nasal Cannula O2 Flow Rate 2.00 0.00 2.00 12/24/21 08:00 O2 Delivery Nasal Cannula 12/24/21 00:00 Intake Total 940 ml Balance 940 ml Weight (Pounds): 231 Weight (Ounces): 6.0 Weight (Calculated Kilograms): 104.819001 Constitutional: AAO x 3, well-developed, well-nourished Respiratory: No accessory muscle use; chest expansion is symmetric, chest is bilaterally symmetric, lungs clear to auscultation Cardiovascular: regular rate-rhythm; No JVD; S1 and S2 Gastrointestional: No guarding; audible bowel sounds Extremities: no lower extremity edema bilateral Neurologic/Psychiatric: other (moves all extremities) Skin: No rash on exposed areas, No ulcerations on exposed areas Results/Procedures: Labs Laboratory Tests 12/23/21 10:53: Glucometer 268H 12/23/21 13:14: White Blood Count 18.2H, Red Blood Count 4.45, Hemoglobin 13.7, Hematocrit 42, Mean Corpuscular Volume 94, Mean Corpuscular Hemoglobin 31, Mean Corpuscular Hemoglobin Concent 33, Red Cell Distribution Width 12.9, Platelet Count 208, Mean Platelet Volume 11.5 12/23/21 15:34: Glucometer 280H 12/23/21 20:58: Glucometer 324H 12/24/21 05:44: White Blood Count 9.9, Red Blood Count 3.92, Hemoglobin 12.0, Hematocrit 36, Mean Corpuscular Volume 91, Mean Corpuscular Hemoglobin 31, Mean Corpuscular Hemoglobin Concent 34, Red Cell Distribution Width 13.1, Platelet Count 256, Mean Platelet Volume 10.4, Sodium Level 134L, Potassium Level 3.0L, Chloride Level 97L, Carbon Dioxide Level 25, Anion Gap 12, Blood Urea Nitrogen 7, Creatinine 0.88, Estimat Glomerular Filtration Rate 68, BUN/Creatinine Ratio 8, Glucose Level 321H, Calcium Level 8.1L, Corrected Calcium 9.1, Total Bilirubin 3.2H, Aspartate Amino Transf (AST/SGOT) 610H, Alanine Aminotransferase (ALT/SGPT) 391H, Alkaline Phosphatase 442H, Total Protein 5.3L, Albumin 2.7L 12/24/21 05:50: Glucometer 289H Microbiology 12/19/21 Urine Culture - Final, Complete Escherichia coli A/P: Assessment: Abd pain/nausea - cholecystitis - S/P Dr Mauricio grover cholecystectomy on 12-22-21 PAD - Per peripheral angiogram of Aug 18, 2020: No significant abdominal aortic stenosis or aneurysm or dissection. 2. 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 On the left side, there is 60% to 70% stenosis in the distal superficial femoral and 60% to 70% stenosis in the left popliteal and the left tibioperoneal trunk. The left anterior tibial is occluded in its proximal to mid portion. On the right side, there is proximal to mid vessel occlusion of the anterior tibial and the peroneal and there is a 1-vessel runoff (posterior tibial). 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 Way at [facility] in September 2009. - Cardiac cath of 01-06-2015 showed occluded aortocoronary grafts, one to the PDA of the RCA and another to the posterolateral branch of the RCA. Patent left internal mammary artery graft to the distal LAD. This is a small caliber graft. Successful balloon angioplasty of the ostium of the PDA of the RCA with reduction of stenoses from 95-99% to approximately 50%. The distal posterolateral branch to the RCA also has 95-99% ostial stenosis, is of small caliber, and could not be wired - MPI of 12-15-20 is indicative of a small to moderate amount of basal inferior ischemia. Normal regional wall motion. Normal to hyperdynamic left ventricular systolic function with a calculated ejection fraction of 86%. ( Desires conservative management per discussion of 12-24-20 and 03-26-21) - Echocardiogram of 12-17-20 showed LVEF 55-60%. Mild TR Maturity onset diabetes mellitus - managed and followed by Dr Hargrove. Hypertension - controlled Intermittent anxiety - currently controlled. Chronic backache - currently controlled. Hyperlipidemia - being treated with simvastatin - managed by PCP Elevated body mass index - of approximately 35. Leg swelling - following vein harvest for coronary artery bypass surgery in 2008. This has remained stable. Carotid dz - Mild carotid arterial disease per carotid ultrasound of Jun 2018 Ortho - Previous right ankle fracture in September 2012 TREVER - diagnosed in early May 2018, being treated with CPAP (managed by Dr Palm) Plan: Complex management issue S/P lap cholecystectomy by Dr. Martínez on 12-22-21 She has a known h/o PAF for which she has been OAC with Eliquis for stroke prophylaxis. Discussed with patient We feel her risk for non-cardiac surgery is intermediate. Eliquis is being held in anticipation of surgery today. We advise Eliquis be resumed MOIRA following surgery, when deemed surgically safe Replenish lytes as needed and monitor labs RAFAEL POLANCO Dec 23, 2021 08:59
--- NOTE | 2021-12-23 09:36 | Progress Note - Cardiology ---
Cardiology SOAP Progress Note Subjective: Gen weakness and malaise present No cp or palp or syncope or shortness of breath No abd discomfort No n/v Objective: I&O/Vital Signs 12/23/21 12/23/21 12/23/21 12/23/21 00:00 01:00 04:45 06:51 Temp 35.7 36.1 Pulse 73 70 71 83 Resp 16 22 B/P (MAP) 133/79 (97) 196/106 (136) Pulse Ox 91 91 O2 Delivery Room Air Room Air 12/23/21 12/23/21 07:25 08:39 Temp 37.0 Pulse 68 Resp 18 B/P (MAP) 138/77 (97) Pulse Ox 84 84 O2 Delivery Room Air Nasal Cannula O2 Flow Rate 2.00 12/23/21 00:00 Intake Total 300 ml Balance 300 ml Weight (Pounds): 231 Weight (Ounces): 6.0 Weight (Calculated Kilograms): 104.297842 Constitutional: AAO x 3, well-developed, well-nourished Respiratory: No accessory muscle use; chest expansion is symmetric, chest is bilaterally symmetric, lungs clear to auscultation Cardiovascular: regular rate-rhythm; No JVD; S1 and S2 Gastrointestional: No guarding; audible bowel sounds Extremities: no lower extremity edema bilateral Neurologic/Psychiatric: other (moves all extremities) Skin: No rash on exposed areas, No ulcerations on exposed areas Results/Procedures: Labs Laboratory Tests 12/22/21 11:28: Glucometer 221H 12/22/21 17:45: Glucometer 266H 12/22/21 20:18: Glucometer 248H 12/23/21 05:16: Glucometer 343H Microbiology 12/19/21 Urine Culture - Final, Complete Escherichia coli Laboratory Tests 12/21/21 18:07 A/P: Assessment: Abd pain/nausea - cholecystitis - S/P Dr Mauricio grover cholecystectomy on 12-22-21 PAD - Per peripheral angiogram of Aug 18, 2020: No significant abdominal aortic stenosis or aneurysm or dissection. 2. 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 On the left side, there is 60% to 70% stenosis in the distal superficial femoral and 60% to 70% stenosis in the left popliteal and the left tibioperoneal trunk. The left anterior tibial is occluded in its proximal to mid portion. On the right side, there is proximal to mid vessel occlusion of the anterior tibial and the peroneal and there is a 1-vessel runoff (posterior tibial). 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 Way at [facility] in September 2009. - Cardiac cath of 01-06-2015 showed occluded aortocoronary grafts, one to the PDA of the RCA and another to the posterolateral branch of the RCA. Patent left internal mammary artery graft to the distal LAD. This is a small caliber graft. Successful balloon angioplasty of the ostium of the PDA of the RCA with reduction of stenoses from 95-99% to approximately 50%. The distal posterolateral branch to the RCA also has 95-99% ostial stenosis, is of small caliber, and could not be wired - MPI of 12-15-20 is indicative of a small to moderate amount of basal inferior ischemia. Normal regional wall motion. Normal to hyperdynamic left ventricular systolic function with a calculated ejection fraction of 86%. ( Desires conservative management per discussion of 12-24-20 and 03-26-21) - Echocardiogram of 12-17-20 showed LVEF 55-60%. Mild TR Maturity onset diabetes mellitus - managed and followed by Dr Hargrove. Hypertension - controlled Intermittent anxiety - currently controlled. Chronic backache - currently controlled. Hyperlipidemia - being treated with simvastatin - managed by PCP Elevated body mass index - of approximately 35. Leg swelling - following vein harvest for coronary artery bypass surgery in 2008. This has remained stable. Carotid dz - Mild carotid arterial disease per carotid ultrasound of Jun 2018 Ortho - Previous right ankle fracture in September 2012 TREVER - diagnosed in early May 2018, being treated with CPAP (managed by Dr Palm) Plan: Complex management issue S/P lap cholecystectomy by Dr. Martínez on 12-22-21 She has a known h/o PAF for which she has been on OAC with Eliquis for stroke prophylaxis. Please resume Eliquis MOIRA when considered safe from surgical standpoint Replenish lytes as needed and monitor labs EDA LANG MD FACP FAC CCDS Dec 23, 2021 09:36
[2021-12-23] MEDS: PANTOPRAZOLE 40 MG (PROTONIX) VIAL IV SCH (09:37)
[2021-12-23] MEDS: APIXABAN 5 MG (ELIQUIS) TABLET PO SCH ×3 (09:38→20:01)
[2021-12-23 11:01] VITALS: BP 162/71
[2021-12-23 13:35] LABS: HEMATOCRIT 42 % (35-52); HEMOGLOBIN 13.7 g/dL (11.5-16.0); MEAN CORPUSCULAR HEMOGLOBIN 31 pg (25-34); MEAN CORPUSCULAR HGB CONC 33 g/dL (32-36); MEAN CORPUSCULAR VOLUME 94 fL (80-99); MEAN PLATELET VOLUME 11.5 fL (9.0-12.2); PLATELET COUNT 208 10^3/uL (130-400); WHITE BLOOD COUNT 18.2 10^3/uL (4.3-11.0)
--- NOTE | 2021-12-23 14:41 | Physical Therapy Evaluation ---
PT Evaluation-General Medical Diagnosis Admission Date Dec 19, 2021 at 14:14 Medical Diagnosis: Abdominal pain, lethargy Onset Date: Dec 19, 2021 Therapy Diagnosis Therapy Diagnosis: Gait deficit, generalized weakness Height/Weight Height (Feet): 5 Height (Inches): 7.00 Weight (Pounds): 231 Weight (Ounces): 6.0 Precautions Precautions/Isolations: Fall Prevention, Standard Precautions Weight Bear Status Right Lower Extremity: Right Full Weight Bearing Left Lower Extremity: Left Full Weight Bearing Referral Physician: Dr. Martínez Reason for Referral: Evaluation/Treatment Medical History Pertinent Medical History: CABG, CAD, DM, HTN Reviewed History: Yes Social History Home: [facility] Current Living Status: Alone Entry Into Home: Stairs With Railing PT Steps Into Home: 3 PT Steps Inside Home: 15 Prior Prior Level of Function SCALE: Activities may be completed with or without assistive devices. 9-Bdrwfykshl-fntmstr completes the activity by him/herself with no assistance from a helper. 5-Set-up or Clean-up Assistance-helper sets up or cleans up; patient completes activity. [place] assists only prior to or following the activity. 4-Supervision or Touching Assistance-helper provides verbal cues and/or touching/steadying and/or contact guard assistance as patient completes activity. Assistance may be provided throughout the activity or intermittently. 3-Partial/Moderate Assistance-helper does LESS THAN HALF the effort. [place] lif ts, holds or supports trunk or limbs, but provides less than half the effort. 2-Substantial/Maximal Assistance-helper does MORE THAN HALF the effort. [place] lifts or holds trunk or limbs and provides more than half the effort. 5-Phigucgar-pcczkq does ALL the effort. Patient does none of the effort to complete the activity. Or, the assistance of 2 or more helpers is required for the patient to complete the activity. If activity was not attempted, code reason: 7-Patient Refused. 9-Not Applicable-not attempted and the patient did not perform the activity before the current illness, exacerbation or injury. 10-Not Attempted due to Environmental Limitations-(lack of equipment, weather restraints, etc.). 88-Not Attempted due to Medical Conditions or Safety Concerns. Bed Mobility: 6 Transfers (B,C,W/C): 6 Gait: 6 Stairs: 6 Indoor Mobility (Ambulation): Independent Stairs: Independent Prior Devices Use: None Reports she doesn't use any assistive devices, however does have a cane and FWW at home. PT Evaluation-Current Objective Patient Orientation: Person, Place, Time, Situation Attachments: Oxygen, IV ROM/Strength ROM Lower Extremities WFLs Strength Lower Extremities 3+/5 All planes bilaterally Sensory Vision: Functional Hearing: Functional Sensation Right Lower Extremit: Intact Sensation Left Lower Extremity: Intact Transfers Roll Left to Right (QC): 3 Sit to Lying (QC): 3 Lying to Sitting/Side of Bed(Q: 3 Sit to Stand (QC): 3 Chair/Abe-mr-Drwni Xfer(QC): 3 Toilet Transfer (QC): 3 Gait Does the Patient Walk?: Yes Mode of Locomotion: Walk Anticipated Mode of Locomotion: Walk Walk 10 feet (QC): 3 Distance: 30 Gait Assistive Device: FWW Balance Sitting Static: Good Sitting Dynamic: Good Standing Static: Fair Standing Dynamic: Fair Assessment/Needs Rehab Potential: Good PT Intermediate Goals Intermediate Goals 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 Goals Time Frame: Jan 07, 2022 Roll Left & Right (QC): 6 Sit to Lying (QC): 6 Lying-Sitting on Side/Bed(QC): 6 Sit to Stand (QC): 6 Chair/Mwi-kk-Ycicx Xfer(QC): 6 Toilet Transfer (QC): 6 Does the Patient Walk: Yes Walk 10 feet (QC): 6 Walk 50ft with 2 Turns (QC): 6 Walk 150 ft (QC): 4 1 Step (curb) (QC): 4 4 Steps (QC): 4 12 Steps (QC): 4 PT Plan Problem List Problem List: Activity Tolerance, Functional Strength, Safety, Balance, Gait, Transfer, Bed Mobility, ROM Treatment/Plan Treatment Plan: Continue Plan of Care Treatment Plan: Bed Mobility, Education, Functional Activity Francisco, Functional Strength, Group Therapy, Gait, Safety, Therapeutic Exercise, Transfers Treatment Duration: Jan 29, 2022 Frequency: 6 times per week Estimated Hrs Per Day: .25 hour per day Patient and/or Family Agrees t: Yes Safety Risks/Education Patient Education: Gait Training, Transfer Techniques Teaching Recipient: Patient Teaching Methods: Demonstration, Discussion Response to Teaching: Reinforcement Needed Discharge Recommendations Target Placement Post acute placement recommended at this time Time/GCodes Time In: 1403 Time Out: 1430 Total Billed Treatment Time: 27 Total Billed Treatment Visit, EVM, Gait TOCCI,MARISA PT Dec 23, 2021 14:41
--- NOTE | 2021-12-23 15:22 | Progress Note ---
Subjective Date Seen by a Provider: Dec 23, 2021 Time Seen by a Provider: 15:10 Subjective/Events-last exam Patient seen with Dr. Martínez. Patient reports doing but fatigued. Denies any N/V, Fever/chills. Tolerating diet. Objective Exam Vital Signs Date Time Temp Pulse Resp B/P (MAP) Pulse Ox O2 Delivery O2 Flow Rate FiO2 12/23/21 12:31 87 12/23/21 11:01 37.0 75 18 162/71 (101) 93 Nasal Cannula 2.00 12/23/21 08:39 84 Nasal Cannula 2.00 12/23/21 07:25 37.0 68 18 138/77 (97) 84 Room Air 12/23/21 06:51 83 12/23/21 04:45 36.1 71 22 196/106 (136) 91 Room Air 12/23/21 01:00 70 12/23/21 00:00 35.7 73 16 133/79 (97) 91 Room Air 12/22/21 19:25 Room Air 12/22/21 19:13 35.5 78 18 159/78 (105) 94 Nasal Cannula 4.00 12/22/21 19:00 73 12/22/21 18:22 Nasal Cannula 4.00 12/22/21 18:15 35.9 70 18 145/67 (93) 93 Nasal Cannula 4.00 4.00 12/22/21 18:14 35.9 70 18 145/67 (93) 93 Nasal Cannula 4.00 4.00 12/22/21 17:42 35.9 70 18 145/67 (93) 93 Nasal Cannula 4.00 12/22/21 17:10 High Flow N/C 4 12/22/21 17:00 16 165/85 (111) 92 Nasal Cannula 4 12/22/21 16:55 High Flow N/C 4 12/22/21 16:55 37.5 16 177/87 (117) 92 Nasal Cannula 4 12/22/21 16:45 18 179/86 (117) 92 Nasal Cannula 4 12/22/21 16:40 High Flow N/C 4 12/22/21 16:35 20 184/84 (117) 91 High Flow N/C 4 12/22/21 16:25 22 179/79 (112) 93 OxyMask 6 12/22/21 16:25 OxyMask 6 12/22/21 16:15 24 157/78 (104) 94 OxyMask 8 12/22/21 16:10 OxyMask 8 12/22/21 16:05 24 164/57 (92) 94 12/22/21 16:00 36.5 71 16 155/57 (89) 93 OxyMask 8.00 8.00 12/22/21 15:57 36.5 16 155/57 (89) 93 OxyMask 8 12/22/21 15:57 OxyMask 8 I & O 12/23/21 07:00 Intake Total 1050 ml Output Total 350 ml Balance 700 ml Capillary Refill : Less Than 3 Seconds General Appearance: No Apparent Distress, WD/WN Neck: Normal Inspection, Supple Respiratory: No Accessory Muscle Use, No Respiratory Distress Cardiovascular: Regular Rate, Rhythm, No Edema Gastrointestinal: soft, tenderness (RUQ) Extremity: Normal Inspection, Normal Range of Motion Neurologic/Psychiatric: Alert, Oriented x3 Skin: Normal Color, Warm/Dry, Other (Abdominal incisions C/D/I, ecchymosis noted around 12mm trocar site, no signs of infection) Results Lab Laboratory Tests 12/22/21 17:45: Glucometer 266H 12/22/21 20:18: Glucometer 248H 12/23/21 05:16: Glucometer 343H 12/23/21 10:53: Glucometer 268H 12/23/21 13:14: White Blood Count 18.2H, Red Blood Count 4.45, Hemoglobin 13.7, Hematocrit 42, Mean Corpuscular Volume 94, Mean Corpuscular Hemoglobin 31, Mean Corpuscular Hemoglobin Concent 33, Red Cell Distribution Width 12.9, Platelet Count 208, Mean Platelet Volume 11.5 Microbiology 12/19/21 Urine Culture - Final, Complete Escherichia coli Assessment/Plan Assessment/Plan Assess & Plan/Chief Complaint A 76 year old female with acute cholecystitis, S/P lap rashmi POD #1 VSS WBC 18.2 - On Zosyn Continue IV fluids, abx, pain, nausea medication PT and IS Continue CPAP at night AM Labs SILVIANO LOPEZ APRN Dec 23, 2021 15:21
[2021-12-23 15:30] VITALS: BP 170/75
[2021-12-23] MEDS: HYDROcodone/APAP 7.5 MG/325 MG (LORTAB, LORCET PLUS) TABLET PO PRN (17:28)
[2021-12-23] MEDS: metFORMIN 500 MG (GLUCOPHAGE) TAB PO SCH (17:32)
[2021-12-23 19:19] VITALS: BP 148/68
[2021-12-23] MEDS: SIMvastatin 40 MG (ZOCOR) TAB PO SCH (20:01)
[2021-12-24] VITALS: BP 120/73
[2021-12-24] MEDS: PIPERACILLIN SODIUM/TAZOBACTAM 4.5 GM in NS (IVPB) 100 ML IV SCH ×2 (03:39→12:28)
[2021-12-24 03:58] VITALS: BP 138/83
[2021-12-24] MEDS: metFORMIN 500 MG (GLUCOPHAGE) TAB PO SCH (06:03)
[2021-12-24] MEDS: inSUlin ASPART (NovoLOG) 1 UNIT/0.01 ML (CHARGE PER UNIT) SC SCH ×2 (06:03→11:55)
[2021-12-24 06:13] LABS: HEMATOCRIT 36 % (35-52); MEAN CORPUSCULAR HEMOGLOBIN 31 pg (25-34); MEAN CORPUSCULAR HGB CONC 34 g/dL (32-36); MEAN CORPUSCULAR VOLUME 91 fL (80-99); MEAN PLATELET VOLUME 10.4 fL (9.0-12.2); PLATELET COUNT 256 10^3/uL (130-400); WHITE BLOOD COUNT 9.9 10^3/uL (4.3-11.0)
[2021-12-24 06:29] LABS: ALBUMIN 2.7 GM/DL (3.2-4.5)
[2021-12-24 06:31] LABS: CALCIUM 8.1 MG/DL (8.5-10.1)
[2021-12-24 06:32] LABS: TOTAL PROTEIN 5.3 GM/DL (6.4-8.2)
[2021-12-24 06:33] LABS: BILIRUBIN,TOTAL 3.2 MG/DL (0.1-1.0)
[2021-12-24 06:35] LABS: CREATININE SERUM 0.88 MG/DL (0.60-1.30)
[2021-12-24] MEDS: APIXABAN 5 MG (ELIQUIS) TABLET PO SCH ×2 (07:25→08:49)
[2021-12-24 07:36] VITALS: BP 143/65
[2021-12-24 07:57] VITALS: BP 178/110
[2021-12-24] MEDS: meTOprolol SUCCINATE 100 MG (TOPROL XL) TAB PO SCH (08:49)
[2021-12-24] MEDS: HYDROcodone/APAP 7.5 MG/325 MG (LORTAB, LORCET PLUS) TABLET PO PRN (08:50)
--- NOTE | 2021-12-24 08:53 | Physical Therapy Daily Note ---
PT Daily Note-Current Subjective Patient reported not getting enough sleep last night, but was willing to start PT. Patient needed to use the bathroom before starting treatment. Pain Location: No Pain Reported Mental Status Patient Orientation: Person, Place, Situation Attachments: Oxygen Transfers SCALE: Activities may be completed with or without assistive devices. 5-Bsmlmkflbm-ccnkaqc completes the activity by him/herself with no assistance from a helper. 5-Set-up or Clean-up Assistance-helper sets up or cleans up; patient completes activity. [place] assists only prior to or following the activity. 4-Supervision or Touching Assistance-helper provides verbal cues and/or touching/steadying and/or contact guard assistance as patient completes activity. Assistance may be provided throughout the activity or intermittently. 3-Partial/Moderate Assistance-helper does LESS THAN HALF the effort. [place] lifts, holds or supports trunk or limbs, but provides less than half the effort. 2-Substantial/Maximal Assistance-helper does MORE THAN HALF the effort. [place] lifts or holds trunk or limbs and provides more than half the effort. 9-Jriavijes-fiykbb does ALL the effort. Patient does none of the effort to complete the activity. Or, the assistance of 2 or more helpers is required for the patient to complete the activity. If activity was not attempted, code reason: 7-Patient Refused. 9-Not Applicable-not attempted and the patient did not perform the activity before the current illness, exacerbation or injury. 10-Not Attempted due to Environmental Limitations-(lack of equipment, weather restraints, etc.). 88-Not Attempted due to Medical Conditions or Safety Concerns. Lying to Sitting/Side of Bed(Q: 4 Sit to Stand (QC): 4 Chair/Uof-bh-Fsotj Xfer(QC): 4 Weight Bearing Right Lower Extremity: Right Full Weight Bearing Left Lower Extremity: Left Full Weight Bearing Gait Training Distance: 100' Walk 10 feet (QC): 4 Walk 50 ft with 2 Turns(QC): 4 Gait Assistive Device: FWW Wheelchair Training Does the Pt Use a Wheelchair?: No Type of Wheelchair: N/A Treatments Ambulation, transfers Assessment Current Status: Fair Progress Patient utilized both hands to pull self up from lying to sitting. Patient ambulated with FWW, CGA with slow steady steps. Patient was left in bed with tr ay, call light, and all needs met. PT Short Term Goals Short Term Goals Time Frame: Dec 24, 2021 PT Nursing Home Goals Nursing Home Goals PT Nursing Home Goals Time Frame: Jan 07, 2022 Roll Left & Right (QC): 6 Sit to Lying (QC): 6 Lying-Sitting on Side/Bed(QC): 6 Sit to Stand (QC): 6 Chair/Ybh-cb-Yzpwh Xfer(QC): 6 Toilet Transfer (QC): 6 Does the Patient Walk: Yes Walk 10 feet (QC): 6 Walk 50ft with 2 Turns (QC): 6 Walk 150 ft (QC): 4 1 Step (curb) (QC): 4 4 Steps (QC): 4 12 Steps (QC): 4 PT Plan Problem List Problem List: Activity Tolerance, Functional Strength, Safety, Balance, Gait, Bed Mobility Treatment/Plan Treatment Plan: Continue Plan of Care Treatment Plan: Bed Mobility, Education, Functional Activity Francisco, Functional Strength, Group Therapy, Gait, Safety, Therapeutic Exercise, Transfers Treatment Duration: Jan 29, 2022 Frequency: 6 times per week Estimated Hrs Per Day: .25 hour per day Patient and/or Family Agrees t: Yes Time/GCodes Time In: 814 Time Out: 826 Total Billed Treatment Time: 12 Total Billed Treatment 1 Visit FA 12min ERIC WALKER PT Dec 24, 2021 08:53
[2021-12-24] MEDS: PANTOPRAZOLE 40 MG (PROTONIX) VIAL IV SCH (08:58)
[2021-12-24] MEDS: FUROSEMIDE 40 MG (LASIX) TAB PO SCH (08:58)
--- NOTE | 2021-12-24 10:11 | Progress Note - Cardiology ---
Cardiology SOAP Progress Note Subjective: No c/o CP or SOB Wants to go home Objective: I&O/Vital Signs 12/23/21 12/24/21 12/24/21 12/24/21 22:50 00:00 01:00 03:58 Temp 36.0 35.5 Pulse 75 77 82 Resp 17 21 B/P (MAP) 120/73 (89) 138/83 (101) Pulse Ox 96 91 O2 Delivery Nasal Cannula Nasal Cannula NIV CPAP O2 Flow Rate 2.00 2.00 FiO2 97 12/24/21 12/24/21 12/24/21 12/24/21 07:00 07:25 07:26 07:36 Temp 36.0 Pulse 77 86 Resp 18 B/P (MAP) 143/65 (91) Pulse Ox 95 90 O2 Delivery Nasal Cannula Room Air Nasal Cannula O2 Flow Rate 2.00 0.00 2.00 12/24/21 08:00 O2 Delivery Nasal Cannula 12/24/21 00:00 Intake Total 940 ml Balance 940 ml Weight (Pounds): 231 Weight (Ounces): 6.0 Weight (Calculated Kilograms): 104.970251 Constitutional: AAO x 3, well-developed, well-nourished Respiratory: No accessory muscle use; chest expansion is symmetric, chest is bilaterally symmetric, lungs clear to auscultation Cardiovascular: regular rate-rhythm; No JVD; S1 and S2 Gastrointestional: No guarding; audible bowel sounds, other (brusing to the abdomen (post surgical)) Extremities: no lower extremity edema bilateral Neurologic/Psychiatric: other (moves all extremities) Skin: No rash on exposed areas, No ulcerations on exposed areas Results/Procedures: Labs Laboratory Tests 12/23/21 10:53: Glucometer 268H 12/23/21 13:14: White Blood Count 18.2H, Red Blood Count 4.45, Hemoglobin 13.7, Hematocrit 42, Mean Corpuscular Volume 94, Mean Corpuscular Hemoglobin 31, Mean Corpuscular Hemoglobin Concent 33, Red Cell Distribution Width 12.9, Platelet Count 208, Mean Platelet Volume 11.5 12/23/21 15:34: Glucometer 280H 12/23/21 20:58: Glucometer 324H 12/24/21 05:44: White Blood Count 9.9, Red Blood Count 3.92, Hemoglobin 12.0, Hematocrit 36, Mean Corpuscular Volume 91, Mean Corpuscular Hemoglobin 31, Mean Corpuscular Hemoglobin Concent 34, Red Cell Distribution Width 13.1, Platelet Count 256, Mean Platelet Volume 10.4, Sodium Level 134L, Potassium Level 3.0L, Chloride Level 97L, Carbon Dioxide Level 25, Anion Gap 12, Blood Urea Nitrogen 7, Creatinine 0.88, Estimat Glomerular Filtration Rate 68, BUN/Creatinine Ratio 8, Glucose Level 321H, Calcium Level 8.1L, Corrected Calcium 9.1, Total Bilirubin 3.2H, Aspartate Amino Transf (AST/SGOT) 610H, Alanine Aminotransferase (ALT/SGPT) 391H, Alkaline Phosphatase 442H, Total Protein 5.3L, Albumin 2.7L 12/24/21 05:50: Glucometer 289H Microbiology 12/19/21 Urine Culture - Final, Complete Escherichia coli Laboratory Tests 12/23/21 13:14 12/24/21 05:44 A/P: Assessment: Abd pain/nausea - cholecystitis - S/P Dr Mauricio grover cholecystectomy on 12-22-21 - improving PAD - Per peripheral angiogram of Aug 18, 2020: No significant abdominal aortic stenosis or aneurysm or dissection. 2. 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 On the left side, there is 60% to 70% stenosis in the distal superficial femoral and 60% to 70% stenosis in the left popliteal and the left tibioperoneal trunk. The left anterior tibial is occluded in its proximal to mid portion. On the right side, there is proximal to mid vessel occlusion of the anterior tibial and the peroneal and there is a 1-vessel runoff (posterior tibial). 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 This has left her with speech impairment CAD: - Multi-vessel coronary artery disease with bypass surgery consisting of left internal mammary artery graft to left internal descending and vein graft to posterolateral branch of the right coronary artery and vein graft to the post erior descending branch of the right coronary artery by Dr. Way at [facility] in September 2009. - Cardiac cath of 01-06-2015 showed occluded aortocoronary grafts, one to the PDA of the RCA and another to the posterolateral branch of the RCA. Patent left internal mammary artery graft to the distal LAD. This is a small caliber graft. Successful balloon angioplasty of the ostium of the PDA of the RCA with reduction of stenoses from 95-99% to approximately 50%. The distal posterolateral branch to the RCA also has 95-99% ostial stenosis, is of small caliber, and could not be wired - MPI of 12-15-20 is indicative of a small to moderate amount of basal inferior ischemia. Normal regional wall motion. Normal to hyperdynamic left ventricular systolic function with a calculated ejection fraction of 86%. ( Desires conservative management per discussion of 12-24-20 and 03-26-21) - Echocardiogram of 12-17-20 showed LVEF 55-60%. Mild TR Maturity onset diabetes mellitus - managed and followed by Dr Hargrove. Hypertension - controlled Intermittent anxiety - currently controlled. Chronic backache - currently controlled. Hyperlipidemia - being treated with simvastatin - managed by PCP Elevated body mass index - of approximately 35. Leg swelling - following vein harvest for coronary artery bypass surgery in 2008. This has remained stable. Carotid dz - Mild carotid arterial disease per carotid ultrasound of Jun 2018 Ortho - Previous right ankle fracture in September 2012 TREVER - diagnosed in early May 2018, being treated with CPAP (managed by Dr Palm) Plan: S/P lap cholecystectomy by Dr. Martínez on 12-22-21 She has a known h/o PAF for which she has been on OAC with Eliquis for stroke prophylaxis, this has been resumed Replenish lytes as needed and monitor labs Continue current cardiac medications OK to discharge home from cardiac f/u with out f/u in 2 weeks RAFAEL POLANCO Dec 24, 2021 10:11
[2021-12-24] MEDS ORDERED: HYDR-3817 PO (10:53)
--- NOTE | 2021-12-24 10:54 | Discharge Inst-Surgical ---
D/C Lap Instructions-LESLEY New, Converted, or Re-Newed RX: RX on Chart Follow Up Appt in 2 weeks Activity as tolerated No driving for 24 hours No driving while on pain medications Incentive Spirometry use every 2 hours while awake Regular Diet Symptoms to Report: Fever over 101 degree F, Nausea/Vomiting Infection Signs and Symptoms to report: Increased redness, Foul odor of wound, Increased drainage Bathing instructions: May shower Operative Area Clean/Dry; Keep incision clean/dry If any problems/questions: Contact your physician or go to Emergency Room YOKO SUTTON MD Dec 24, 2021 10:54
--- NOTE | 2021-12-24 11:04 | Progress Note ---
Subjective Date Seen by a Provider: Dec 24, 2021 Time Seen by a Provider: 11:00 Subjective/Events-last exam doing ok. tolerating diet and having some bowel fxn. no fever/chills. l eukocytosis resolved. feels weak. Objective Exam Vital Signs Date Time Temp Pulse Resp B/P (MAP) Pulse Ox O2 Delivery O2 Flow Rate FiO2 12/24/21 08:00 Nasal Cannula 12/24/21 07:36 36.0 86 18 143/65 (91) 90 Nasal Cannula 2.00 12/24/21 07:26 Room Air 0.00 12/24/21 07:25 95 Nasal Cannula 2.00 12/24/21 07:00 77 12/24/21 03:58 35.5 82 21 138/83 (101) 91 NIV CPAP 12/24/21 01:00 77 12/24/21 00:00 36.0 75 17 120/73 (89) 96 Nasal Cannula 2.00 12/23/21 22:50 Nasal Cannula 2.00 97 12/23/21 20:00 Nasal Cannula 2.00 12/23/21 19:19 36.6 78 19 148/68 (94) 97 Nasal Cannula 2.00 12/23/21 19:00 78 12/23/21 15:30 36.4 80 20 170/75 (106) 95 Nasal Cannula 2.00 12/23/21 12:31 87 I & O 12/24/21 07:00 Intake Total 1190 ml Balance 1190 ml Capillary Refill : Less Than 3 Seconds General Appearance: No Apparent Distress HEENT: PERRL/EOMI Neck: Full Range of Motion Respiratory: Chest Non Tender, Decreased Breath Sounds Cardiovascular: Regular Rate, Rhythm Gastrointestinal: normal bowel sounds, soft, tenderness Extremity: Normal Capillary Refill Neurologic/Psychiatric: Alert, Oriented x3 Skin: Normal Color Lymphatic: No Adenopathy Results Lab Laboratory Tests 12/23/21 13:14: White Blood Count 18.2H, Red Blood Count 4.45, Hemoglobin 13.7, Hematocrit 42, Mean Corpuscular Volume 94, Mean Corpuscular Hemoglobin 31, Mean Corpuscular Hemoglobin Concent 33, Red Cell Distribution Width 12.9, Platelet Count 208, Mean Platelet Volume 11.5 12/23/21 15:34: Glucometer 280H 12/23/21 20:58: Glucometer 324H 12/24/21 05:44: White Blood Count 9.9, Red Blood Count 3.92, Hemoglobin 12.0, Hematocrit 36, Mean Corpuscular Volume 91, Mean Corpuscular Hemoglobin 31, Mean Corpuscular Hemoglobin Concent 34, Red Cell Distribution Width 13.1, Platelet Count 256, Mean Platelet Volume 10.4, Sodium Level 134L, Potassium Level 3.0L, Chloride Level 97L, Carbon Dioxide Level 25, Anion Gap 12, Blood Urea Nitrogen 7, Creatinine 0.88, Estimat Glomerular Filtration Rate 68, BUN/Creatinine Ratio 8, Glucose Level 321H, Calcium Level 8.1L, Corrected Calcium 9.1, Total Bilirubin 3.2H, Aspartate Amino Transf (AST/SGOT) 610H, Alanine Aminotransferase (ALT/SGPT) 391H, Alkaline Phosphatase 442H, Total Protein 5.3L, Albumin 2.7L 12/24/21 05:50: Glucometer 289H Microbiology 12/19/21 Urine Culture - Final, Complete Escherichia coli Assessment/Plan Assessment/Plan Assess & Plan/Chief Complaint acute cholecystitis s/p laparoscopic cholecystectomy. tolerating diet however has poor ambulatory capacity due to body habitus and other medical comorbidities. PT/OT. possible home health. YOKO SUTTON MD Dec 24, 2021 11:04
--- NOTE | 2021-12-24 11:23 | Progress Note - Cardiology ---
Cardiology SOAP Progress Note Subjective: Gen malaise and weakness present No shortness of breath at rest No cp No n/v/d Objective: I&O/Vital Signs 12/24/21 12/24/21 12/24/21 12/24/21 00:00 01:00 03:58 07:00 Temp 36.0 35.5 Pulse 75 77 82 77 Resp 17 21 B/P (MAP) 120/73 (89) 138/83 (101) Pulse Ox 96 91 O2 Delivery Nasal Cannula NIV CPAP O2 Flow Rate 2.00 12/24/21 12/24/21 12/24/21 12/24/21 07:25 07:26 07:36 08:00 Temp 36.0 Pulse 86 Resp 18 B/P (MAP) 143/65 (91) Pulse Ox 95 90 O2 Delivery Nasal Cannula Room Air Nasal Cannula Nasal Cannula O2 Flow Rate 2.00 0.00 2.00 12/24/21 00:00 Intake Total 940 ml Balance 940 ml Weight (Pounds): 231 Weight (Ounces): 6.0 Weight (Calculated Kilograms): 104.537351 Constitutional: AAO x 3, well-developed, well-nourished Respiratory: No accessory muscle use; chest expansion is symmetric, chest is bilaterally symmetric, lungs clear to auscultation Cardiovascular: regular rate-rhythm; No JVD; S1 and S2 Gastrointestional: No guarding; audible bowel sounds, other (brusing to the abdomen (post surgical)) Extremities: no lower extremity edema bilateral Neurologic/Psychiatric: other (moves all extremities) Skin: No rash on exposed areas, No ulcerations on exposed areas Results/Procedures: Labs Laboratory Tests 12/23/21 13:14: White Blood Count 18.2H, Red Blood Count 4.45, Hemoglobin 13.7, Hematocrit 42, Mean Corpuscular Volume 94, Mean Corpuscular Hemoglobin 31, Mean Corpuscular Hemoglobin Concent 33, Red Cell Distribution Width 12.9, Platelet Count 208, Me an Platelet Volume 11.5 12/23/21 15:34: Glucometer 280H 12/23/21 20:58: Glucometer 324H 12/24/21 05:44: White Blood Count 9.9, Red Blood Count 3.92, Hemoglobin 12.0, Hematocrit 36, Mean Corpuscular Volume 91, Mean Corpuscular Hemoglobin 31, Mean Corpuscular Hemoglobin Concent 34, Red Cell Distribution Width 13.1, Platelet Count 256, Mean Platelet Volume 10.4, Sodium Level 134L, Potassium Level 3.0L, Chloride Level 97L, Carbon Dioxide Level 25, Anion Gap 12, Blood Urea Nitrogen 7, Creatinine 0.88, Estimat Glomerular Filtration Rate 68, BUN/Creatinine Ratio 8, Glucose Level 321H, Calcium Level 8.1L, Corrected Calcium 9.1, Total Bilirubin 3.2H, Aspartate Amino Transf (AST/SGOT) 610H, Alanine Aminotransferase (ALT/SGP T) 391H, Alkaline Phosphatase 442H, Total Protein 5.3L, Albumin 2.7L 12/24/21 05:50: Glucometer 289H Microbiology 12/19/21 Urine Culture - Final, Complete Escherichia coli Laboratory Tests 12/23/21 13:14 12/24/21 05:44 A/P: Assessment: Abd pain/nausea - cholecystitis - S/P Dr Mauricio grover cholecystectomy on 12-22-21 - improving PAD - Per peripheral angiogram of Aug 18, 2020: No significant abdominal aortic stenosis or aneurysm or dissection. 2. 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 On the left side, there is 60% to 70% stenosis in the distal superficial femoral and 60% to 70% stenosis in the left popliteal and the left tibioperoneal trunk. The left anterior tibial is occluded in its proximal to mid portion. On the right side, there is proximal to mid vessel occlusion of the anterior tibial and the peroneal and there is a 1-vessel runoff (posterior tibial). 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 Way at [facility] in September 2009. - Cardiac cath of 01-06-2015 showed occluded aortocoronary grafts, one to the PDA of the RCA and another to the posterolateral branch of the RCA. Patent left i nternal mammary artery graft to the distal LAD. This is a small caliber graft. Successful balloon angioplasty of the ostium of the PDA of the RCA with reduction of stenoses from 95-99% to approximately 50%. The distal posterolateral branch to the RCA also has 95-99% ostial stenosis, is of small caliber, and could not be wired - MPI of 12-15-20 is indicative of a small to moderate amount of basal inferior ischemia. Normal regional wall motion. Normal to hyperdynamic left ventricular systolic function with a calculated ejection fraction of 86%. ( Desires conservative management per discussion of 12-24-20 and 03-26-21) - Echocardiogram of 12-17-20 showed LVEF 55-60%. Mild TR Maturity onset diabetes mellitus - managed and followed by Dr Hargrove. Hypertension - controlled Intermittent anxiety - currently controlled. Chronic backache - currently controlled. Hyperlipidemia - being treated with simvastatin - managed by PCP Elevated body mass index - of approximately 35. Leg swelling - following vein harvest for coronary artery bypass surgery in 2008. This has remained stable. Carotid dz - Mild carotid arterial disease per carotid ultrasound of Jun 2018 Ortho - Previous right ankle fracture in September 2012 TREVER - diagnosed in early May 2018, being treated with CPAP (managed by Dr Palm) Plan: S/P lap cholecystectomy by Dr. Martínez on 12-22-21 She has a known h/o PAF for which she has been on OAC with Eliquis for stroke prophylaxis, this has been resumed Replenish lytes as needed and monitor labs Continue current cardiac medications OK to discharge home from cardiac f/u with out f/u in 2 weeks EDA LANG MD FACP FAC CCDS Dec 24, 2021 11:23
[2021-12-24] MEDS ORDERED: KCL 20 MEQ TAB (K-DUR) PO NR ×2 (11:30→15:00)
[2021-12-24 11:35] VITALS: BP 140/68
--- NOTE | 2021-12-24 11:36 | D/C HH Face to Face Order ---
D/C Face to Face Orders Reconcile Patient Problems Problems Reviewed?: Yes Instructions for Patient Via [employer], Patient Instructions/FollowUp: no heavy lifting/exertion 2 weeks. follow-up in office in 2 weeks. Physician to follow Patient: yes Discharge Diet for Home: Regular Diet Patient Data-Allergies,Ht & Wt Patient Allergies: Coded Allergies: codeine (Unverified Allergy, Unknown, N/V, 12/19/21) propoxyphene HCl (Verified Adverse Reaction, Mild, NAUSEA, 12/19/21) Height (Feet): 5 Height (Inches): 7.00 Weight (Pounds): 231 Weight (Ounces): 6.0 Home Health Need/Face to Face Date of Face to Face: Dec 24, 2021 Clinical Findings: Generalized weakness and fatigue, Muscle weakness, Shortness of breath I have seen Pt coqy-[id number]: Yes Discharged To: Home Diagnosis/Conditions: acute cholecystitis s/p laparoscopic cholecystectomy Patient is Homebound due to: Muscle weakness, Shortness of breath/distress Homebound Status Due to the above stated illness, injury or surgical procedure (medical condition or diagnosis) and associated clinical findings, the patient is homebound because of his/her inability to leave home except with aid of a supportive device and/or person AND leaving the home requires a considerable and taxing effort or is medically contraindicated. Pt req the following assistanc: Aid of another person Home Health Nursing Orders Home Health Services Order: Nursing Services, Talk Show Host-Evaluate & Treat, Physical Therapy-Evaluate & Treat Home Health Infusion Therapy Line Start Date: Dec 19, 2021 Therapy Orders Therapy Orders: PT to assess for OT Therapy Specific Orders: Increase strength/endurance Certify Stmt I certify that this patient is under my care and that I, a nurse practitioner or a physician; a information assistant working with me, had a face to face encounter that - meets the physician face to face encounter requirements with this patient as dated. YOKO SUTTON MD Dec 24, 2021 11:36
== END 2021-12-24 16:10 | disposition home or self-care (01) | DRG 419 ==
LOC: EDUNIT# 11:55 → ER 11:58 → 4TH 14:14
PROVIDERS: ADMIT Surgery; ATTEND Surgery
PROC: 5A0935A Assistance with Respiratory Ventilation, Less than 24 Consecutive Hours, High Flow/Velocity Cannula (ICD-10-PCS; 2021-12-22)
PROC: 0FT44ZZ Resection of Gallbladder, Percutaneous Endoscopic Approach (ICD-10-PCS; principal; 2021-12-22 14:13)
PROC: 5A09357 Assistance with Respiratory Ventilation, Less than 24 Consecutive Hours, Continuous Positive Airway Pressure (ICD-10-PCS; 2021-12-24)
DX: K80.12 Calculus of gallbladder with acute and chronic cholecystitis without obstruction (principal); I25.10 Atherosclerotic heart disease of native coronary artery without angina pectoris; I10 Essential (primary) hypertension; E11.51 Type 2 diabetes mellitus with diabetic peripheral angiopathy without gangrene; I48.0 Paroxysmal atrial fibrillation; G47.33 Obstructive sleep apnea (adult) (pediatric); I77.9 Disorder of arteries and arterioles, unspecified; M79.89 Other specified soft tissue disorders; G89.29 Other chronic pain; M54.9 Dorsalgia, unspecified; F41.9 Anxiety disorder, unspecified; E78.2 Mixed hyperlipidemia; Z95.1 Presence of aortocoronary bypass graft; Z95.5 Presence of coronary angioplasty implant and graft; Z79.4 Long term (current) use of insulin; Z79.82 Long term (current) use of aspirin; Z79.899 Other long term (current) drug therapy; Z79.01 Long term (current) use of anticoagulants
CPT/HCPCS: 36415; 71045; 74177; 76705; 80048; 80053; 80061; 81000; 82947; 83036; 83735; 85007; 85025; 85027; 87077; 87088; 87186; 93005; 94760; 94761; 96361; 96374; 96375

== ENCOUNTER 2022-04-13 18:58 | Inpatient (IN) | payer MEDICARE, OTHER ==
[~2022-04-13] VITALS: Ht 172.7 cm; Wt 97.2 kg
[~2022-04-13 18:58] MED LIST changes: +APIX5TAB PO; +FEXO-338 PO; -FEXO-45 PO; +FURO40TA4 PO; +HYDR-3817 PO; +INSU100I34 SC; +MTP100TCR PO; +MULT-974 PO; +SEMA14TA2 PO
[2022-04-13 19:42] LABS: BASOPHILS % (AUTO) 0 % (0-10); EOSINOPHILS # (AUTO) 0.1 10^3/uL (0.0-0.3); EOSINOPHILS % (AUTO) 1 % (0-10); HEMATOCRIT 43 % (35-52); HEMOGLOBIN 14.1 g/dL (11.5-16.0); LYMPHOCYTES # (AUTO) 1.5 10^3/uL (1.0-4.0); LYMPHOCYTES % (AUTO) 15 % (12-44); MEAN CORPUSCULAR HEMOGLOBIN 31 pg (25-34); MEAN CORPUSCULAR HGB CONC 33 g/dL (32-36); MEAN CORPUSCULAR VOLUME 92 fL (80-99); MEAN PLATELET VOLUME 10.8 fL (9.0-12.2); MONOCYTES # (AUTO) 0.9 10^3/uL (0.0-1.0); MONOCYTES % (AUTO) 9 % (0-12); NEUTROPHILS # (AUTO) 7.8 10^3/uL (1.8-7.8); NEUTROPHILS % (AUTO) 75 % (42-75); PLATELET COUNT 200 10^3/uL (130-400); WHITE BLOOD COUNT 10.4 10^3/uL (4.3-11.0)
[2022-04-13] MEDS ORDERED: fentaNYL INJ 100 MCG/2 ML AMP IVP ONE (19:45)
[2022-04-13 19:53] LABS: ALBUMIN 3.9 GM/DL (3.2-4.5); POTASSIUM 4.7 MMOL/L (3.6-5.0)
[2022-04-13 19:54] LABS: CALCIUM 9.3 MG/DL (8.5-10.1)
[2022-04-13 19:55] LABS: TOTAL PROTEIN 7.1 GM/DL (6.4-8.2)
[2022-04-13 19:57] LABS: BILIRUBIN,TOTAL 0.8 MG/DL (0.1-1.0)
[2022-04-13 19:59] LABS: CREATININE SERUM 2.22 MG/DL (0.60-1.30)
[2022-04-13 20:09] LABS: BILIRUBIN,URINE NEGATIVE (NEGATIVE); CLARITY,URINE SL CLOUDY; COLOR,URINE ORANGE; GLUCOSE, URINE (UA) 1+ (NEGATIVE); KETONES,URINE TRACE (NEGATIVE); LEUKOCYTE ESTERASE ,URINE NEGATIVE (NEGATIVE); NITRITE,URINE NEGATIVE (NEGATIVE); PROTEIN,URINE 1+ (NEGATIVE)
[2022-04-13 20:17] LABS: BACTERIA,URINE NEGATIVE /HPF; RBC,URINE 50-100 /HPF; SQUAMOUS EPITHELIAL CELL,UR 0-2 /HPF
[2022-04-13] MEDS ORDERED: NS IV 1000 ML 1,000 ML IV SCH (20:45)
--- NOTE | 2022-04-13 21:04 | ED Abdominal Pain ---
General Chief Complaint: Abdominal/GI Problems Stated Complaint: ABDOMINAL PAIN Nursing Triage Note: PT AMB TO ED BY POV WITH C/O LLQ PAIN. REPORTS SHE HAD PAIN LIKE THIS 2 WKS AGO, CAME BACK TODAY. N/V YESTERDAY. DENIES COUGH, FEVER, SOB. Source of Information: Patient, Family Exam Limitations: No Limitations History of Present Illness Date Seen by Provider: Apr 13, 2022 Time Seen by Provider: 19:21 Initial Comments This 76-year-old woman presents to the emergency room by private vehicle accompanied by her sister with complaints of 3 weeks of intermittent episodes of nausea, vomiting, diarrhea, and left upper quadrant pain. She has not identified any particular exacerbating or alleviating factors. Pain does not change with bowel movement. She reports an occasional fever and chills. Pain at present she states is 10 out of 10. It is characterized as aching. She had 1 intense episode about 3 weeks ago, another 2 days ago, and again today. Sister reports that she appears confused in comparison with baseline. She is anticoagulated on Eliquis and also takes Plavix because of coronary artery disease. Allergies and Home Medications Allergies Coded Allergies: codeine (Unverified Allergy, Unknown, N/V, 12/19/21) propoxyphene HCl (Verified Adverse Reaction, Mild, NAUSEA, 12/19/21) Patient Home Medication List Home Medication List Reviewed: Yes Apixaban (Eliquis) 5 Mg Tablet, 5 MG PO BID, (Reported) Entered as Reported by: LLOYD MURPHY on 12/20/211529 Last Action: Held Cetirizine HCl (Cetirizine HCl) 10 Mg Tablet, 10 MG PO DAILY, (Reported) Entered as Reported by: ASHA TORRES on 04/14/22 1234 Last Action: Continued Citalopram Hydrobromide (Citalopram HBr) 40 Mg Tablet, 20 MG PO DAILY, (Reported) Entered as Reported by: LLOYD MURPHY on 12/20/211529 Last Action: Converted Clopidogrel Bisulfate (Clopidogrel) 75 Mg Tablet, 75 MG PO DAILY, (Reported) Entered as Reported by: LLOYD MURPHY on 12/20/211529 Last Action: Held Furosemide (Furosemide) 40 Mg Tablet, 40 MG PO Q48H, (Reported) Entered as Reported by: LLOYD MURPHY on 12/20/211529 Last Action: Held Gabapentin (Gabapentin) 100 Mg Capsule, 100 MG PO DAILY, (Reported) Entered as Reported by: COSME MARTINEZ on 03/01/18 1448 Last Action: Continued Insulin Glargine,Hum.rec.anlog (Basaglar Kwikpen U-100) 100 Unit/1 Ml Insuln.pen, 64 UNITS SC DAILY, (Reported) Entered as Reported by: LLOYD MURPHY on 12/20/211529 Last Action: Held Metformin HCl (Metformin HCl) 500 Mg Tablet, 500 MG PO BID, (Reported) Entered as Reported by: LLOYD MURPHY on 12/20/211529 Last Action: Held Metoprolol Succinate (Metoprolol Succinate) 100 Mg Tab.er.24h, 100 MG PO DAILY, (Reported) Entered as Reported by: LLOYD MURPHY on 12/20/211529 Last Action: Continued Multivitamin (Multi-Vitamin Daily) 1 Each Tablet, 1 EACH PO DAILY, (Reported) Entered as Reported by: LLOYD MURPHY on 12/20/211531 Last Action: Held Oxycodone HCl (Oxycodone HCl) 5 Mg Tablet, 5 MG PO Q4H PRN for SEVERE PAIN Prescribed by: ANDIE BARTON on 04/15/22 1030 Semaglutide (Rybelsus) 14 Mg Tablet, 14 MG PO DAILY, (Reported) Entered as Reported by: LLOYD MURPHY on 12/20/211526 Last Action: Held Simvastatin (Simvastatin) 40 Mg Tablet, 40 MG PO HS, (Reported) Entered as Reported by: COSME MARTINEZ on 03/01/18 1448 Last Action: Held Sulfamethoxazole/Trimethoprim (Bactrim Ds Tablet) 1 Each Tablet, 1 EACH PO BID Prescribed by: ANDIE BARTON on 04/15/22 1029 Tamsulosin HCl (Flomax) 0.4 Mg Cap, 0.4 MG PO DAILY Prescribed by: ANDIE BARTON on 04/15/22 1029 Discontinued Medications Fexofenadine HCl (Fexofenadine HCl) 60 Mg Tablet, 60 MG PO DAILY PRN for A LLERGIES, (Reported) Discontinued Reason: No Longer Taking Entered as Reported by: OCSME MARTINEZ on 03/01/18 1524 Last Action: Discontinued Hydrocodone/Acetaminophen (Hydrocodone-Acetamin 7.5-325) 1 Each Tablet, 1 EACH PO Q4H Discontinued Reason: Duplicate Order Prescribed by: YOKO SUTTON on 12/24/21 1053 Last Action: Discontinued Semaglutide (Rybelsus) 14 Mg Tablet, 14 MG PO DAILY, (Reported) Discontinued Reason: Duplicate Order Entered as Reported by: IMANI SOLIS on 12/20/21 1823 Last Action: Discontinued Review of Systems Review of Systems Constitutional: see HPI EENTM: No Symptoms Reported Respiratory: No Symptoms Reported Cardiovascular: No Symptoms Reported Gastrointestinal: See HPI Genitourinary: See HPI Musculoskeletal: no symptoms reported Skin: no symptoms reported Psychiatric/Neurological: See HPI Endocrine: No Symptoms Reported Hematologic/Lymphatic: No Symptoms Reported Past Nceendn-Hnnijr-Axzqtw Hx Patient Social History Tobacco Use?: No Use of E-Cig and/or Vaping dev: No Substance use?: No Alcohol Use?: Yes Alcohol type: Wine Alcohol Frequency: Daily Pt feels they are or have been: No Immunizations Up To Date Tetanus Booster (TDap): Less than 5yrs Influenza Vaccine Up-to-Date: Yes; Up-to-Date First/Initial COVID19 Vaccinat: 12/05/20 Second COVID19 Vaccination Guille: 01/05/21 Third COVID19 Vaccination Date: 2020 COVID19 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: [employer] Seasonal Allergies Seasonal Allergies: No Past Medical History Surgery/Hospitalization HX: DM 2, HTN Open Heart Surgery Stents Loop Recorder appendectomy tonsilectomy adnoidectomy Right ankle repair r/t fracture Surgeries: Yes CABG, Coronary Stent, Gallbladder, Orthopedic Respiratory: Yes Sleep Apnea Currently Using CPAP: Yes Currently Using BIPAP: No Cardiac: Yes (Carotid Dz) Coronary Artery Disease, Hypertension Neurological: No : No Reproductive Disorders: No Sexually Transmitted Disease: No Gastrointestinal: No Musculoskeletal: No Endocrine: Yes Diabetes, Insulin dep, Lupus Hearing Impairment: Hard of Hearing Cancer: No Psychosocial: No Integumentary: No Blood Disorders: No Family Medical History Diabetes mellitus 19 FATHER G8 BROTHER Neoplasm 19 MOTHER ( with ca of bladder) No Pertinent Family Hx Physical Exam Vital Signs Vital Signs - First Documented 04/13/22 19:10 Temp 36.7 Pulse 81 Resp 16 B/P (MAP) 176/84 (114) Pulse Ox 95 O2 Delivery Room Air Capillary Refill : Less Than 3 Seconds Height/Weight/BMI Height: 5'7.00" Weight: 231lbs. 6.0oz. 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, alert, oriented x 3, motor weakness (Generalized), other (Cognition dulled) Skin: normal color, warm/dry Progress/Results/Core Measures Results/Orders Lab Results Laboratory Tests Test 04/13/22 19:30 04/13/22 20:00 Range/Units White Blood Count 10.4 4.3-11.0 10^3/uL Red Blood Count 4.61 3.80-5.11 10^6/uL Hemoglobin 14.1 11.5-16.0 g/dL Hematocrit 43 35-52 % Mean Corpuscular Volume 92 80-99 fL Mean Corpuscular Hemoglobin 31 25-34 pg Mean Corpuscular Hemoglobin Concent 33 32-36 g/dL Red Cell Distribution Width 14.7 H 10.0-14.5 % Platelet Count 200 130-400 10^3/uL Mean Platelet Volume 10.8 9.0-12.2 fL Immature Granulocyte % (Auto) 0 % Neutrophils (%) (Auto) 75 42-75 % Lymphocytes (%) (Auto) 15 12-44 % Monocytes (%) (Auto) 9 0-12 % Eosinophils (%) (Auto) 1 0-10 % Basophils (%) (Auto) 0 0-10 % Neutrophils # (Auto) 7.8 1.8-7.8 10^3/uL Lymphocytes # (Auto) 1.5 1.0-4.0 10^3/uL Monocytes # (Auto) 0.9 0.0-1.0 10^3/uL Eosinophils # (Auto) 0.1 0.0-0.3 10^3/uL Basophils # (Auto) 0.0 0.0-0.1 10^3/uL Immature Granulocyte # (Auto) 0.0 0.0-0.1 10^3/uL Sodium Level 134 L 135-145 MMOL/L Potassium Level 4.7 3.6-5.0 MMOL/L Chloride Level 97 L 98-107 MMOL/L Carbon Dioxide Level 22 21-32 MMOL/L Anion Gap 15 H 5-14 MMOL/L Blood Urea Nitrogen 26 H 7-18 MG/DL Creatinine 2.22 H 0.60-1.30 MG/DL Estimat Glomerular Filtration Rate 23 BUN/Creatinine Ratio 12 Glucose Level 237 H 70-105 MG/DL Calcium Level 9.3 8.5-10.1 MG/DL Corrected Calcium 9.4 8.5-10.1 MG/DL Total Bilirubin 0.8 0.1-1.0 MG/DL Aspartate Amino Transf (AST/SGOT) 18 5-34 U/L Alanine Aminotransferase (ALT/SGPT) 12 0-55 U/L Alkaline Phosphatase 72 40-136 U/L C-Reactive Protein High Sensitivity 2.28 H 0.00-0.50 MG/DL Total Protein 7.1 6.4-8.2 GM/DL Albumin 3.9 3.2-4.5 GM/DL Lipase 18 8-78 U/L Urine Color ORANGE Urine Clarity SL CLOUDY Urine pH 6.0 5-9 Urine Specific [place] >=1.030 1.016-1.022 Urine Protein 1+ H NEGATIVE Urine Glucose (UA) 1+ H NEGATIVE Urine Ketones TRACE H NEGATIVE Urine Nitrite NEGATIVE NEGATIVE Urine Bilirubin NEGATIVE NEGATIVE Urine Urobilinogen 0.2 < = 1.0 MG/DL Urine Leukocyte Esterase NEGATIVE NEGATIVE Urine RBC (Auto) 3+ H NEGATIVE Urine RBC 50-100 H /HPF Urine WBC 2-5 /HPF Urine Squamous Epithelial Cells 0-2 /HPF Urine Renal Epithelial Cells NONE /HPF Urine Crystals NONE /LPF Urine Bacteria NEGATIVE /HPF Urine Casts NONE /LPF Urine Mucus NEGATIVE /LPF Urine Culture Indicated NO My Orders Orders - BUCKY [facility] MD Cbc With Automated Diff (04/13/22 19:32) Comprehensive Metabolic Panel (04/13/22 19:32) Hs C Reactive Protein (04/13/22 19:32) Lipase (04/13/22 19:32) Ua Culture If Indicated (04/13/22 19:32) Ed Iv/Invasive Line Start (04/13/22 19:32) Fentanyl Inj (Sublimaze Injection) (04/13/22 19:45) Ns Iv 1000 Ml (Sodium Chloride 0.9%) (04/13/22 20:45) Ct Abd/Pelvis Wo(Kidney Stone) (04/13/22 20:35) Abdomen/Kub 1view (04/13/22 21:10) Ceftriaxone 1 Gm Pre-Mix (Rocephin 1 Gm (04/13/22 21:10) Medications Given in ED Vital Signs/I&O 04/13/22 19:10 Temp 36.7 Pulse 81 Resp 16 B/P (MAP) 176/84 (114) Pulse Ox 95 O2 Delivery Room Air Blood Pressure Mean: 114 Progress Progress Note : Progress Note Patient was hydrated with IV fluids. Fentanyl was administered for pain control. Labs revealed acute kidney injury. CT exam revealed obstructing left ureteral stone. Dr. Sosa was consulted. He recommended holding Eliquis and Plavix (last doses were this morning) and keeping n.p.o. after midnight. Departure Communication (Admissions) Time/Spoke to Admitting Phy: 21:45 Dr. Ojeda Time/Spoke to Consulting Phy: 21:00 Dr. Sosa Impression Primary Impression: Acute kidney injury Additional Impressions: Left ureteral stone Confusion Nausea vomiting and diarrhea Disposition: ADMITTED INPATIENT Condition: Improved Admissions Decision to Admit Reason: Admit from ER (General) Decision to Admit/Date: Apr 13, 2022 Time/Decision to Admit Time: 21:00 Departure-Patient Inst. Referrals: AYAH DARNELL MD (PCP/Family) Primary Care Physician Scripts Oxycodone HCl (Oxycodone HCl) 5 Mg Tablet 5 MG PO Q4H PRN for SEVERE PAIN for 7 Days, #15 TAB Prov: ANDIE BARTON MD 04/15/22 Tamsulosin HCl (Flomax) 0.4 Mg Cap 0.4 MG PO DAILY for 14 Days, #14 CAP Prov: ANDIE BARTON MD 04/15/22 Sulfamethoxazole/Trimethoprim (Bactrim Ds Tablet) 1 Each Tablet 1 EACH PO BID for 7 Days, #14 TAB Prov: ANDIE BARTON MD 04/15/22 Copy Copies To 1: AYAH DARNELL MD, JOSHUA T MD Apr 13, 2022 21:04
--- NOTE | 2022-04-13 21:08 | Diagnostic Imaging Report ---
PROCEDURE: CT urinary tract, rule out kidney stone. TECHNIQUE: Multiple contiguous axial images were obtained through the abdomen and pelvis without the use of intravenous contrast. Auto Exposure Controls were utilized during the CT exam to meet ALARA standards for radiation dose reduction. INDICATION: Left lower quadrant pain. Nausea and vomiting. COMPARISON: 12/19/2021. FINDINGS: The heart is prominent. The lung bases are clear. There have been interval postsurgical changes of cholecystectomy. An area of decreased attenuation with small amount of air is seen in the right hepatic lobe measuring 3.4 x 2.6 cm. A calculus is seen in the proximal left ureter measuring 0.5 cm with moderate left-sided hydroureteronephrosis. No hydronephrosis on the right. The urinary bladder is nondistended. The spleen, pancreas, and adrenal glands have a normal noncontrast CT appearance. There is no pathologically enlarged mesenteric or retroperitoneal adenopathy. The bowel loops are nondilated. There is no free fluid or free air. No acute osseous abnormalities. There is calcified aortic and iliac atherosclerotic plaque without aneurysm. There is no free air, loculated collection or adenopathy in the pelvis. IMPRESSION: 1. Obstructing calculus in the proximal left ureter measuring 0.5 cm with moderate left-sided hydroureteronephrosis. 2. Post surgical changes of cholecystectomy. There is an area of hypoattenuation and air within the right hepatic lobe near the gallbladder fossa. This is favored to represent a postsurgical seroma. Consider follow-up to ensure resolution. 3. Cardiomegaly. Dictated by: Dictated on workstation # [id number]
[2022-04-13] MEDS ORDERED: cefTRIAXone 1 GM PRE-MIX 50 ML IV STA (21:10)
--- NOTE | 2022-04-13 21:48 | Diagnostic Imaging Report ---
CLINICAL HISTORY: Abdominal pain. COMPARISON: CT performed earlier the same date. TECHNIQUE: 2 views of the abdomen and pelvis. FINDINGS: Calculus in the left ureter is seen at approximately the L4 level. No evidence of bowel obstruction. No acute osseous abnormality. IMPRESSION: Calculus in the left ureter at approximately the L4 level. Dictated by: Dictated on workstation # [id number]
[2022-04-13 22:45] VITALS: BP 174/85
[2022-04-13] MEDS ORDERED: LACTATED RINGERS 1,000 ML IV ONE (22:45)
[2022-04-13] MEDS: LACTATED RINGERS 1,000 ML IV SCH (23:25)
[2022-04-13] MEDS: fentaNYL INJ 100 MCG/2 ML AMP IV PRN (23:26)
[2022-04-14] VITALS (7 sets, daily range): BP systolic 134–197; BP diastolic 62–88
[2022-04-14] MEDS: ONDANSETRON 4 MG/2 ML (SDV) Z0FRAN IV PRN ×2 (01:24→09:18)
[2022-04-14] MEDS: LACTATED RINGERS 1,000 ML IV SCH ×3 (05:34→20:03)
[2022-04-14] MEDS: fentaNYL INJ 100 MCG/2 ML AMP IV PRN ×2 (05:48→08:55)
[2022-04-14 05:52] LABS: BASOPHILS % (AUTO) 0 % (0-10); EOSINOPHILS % (AUTO) 0 % (0-10); HEMATOCRIT 47 % (35-52); HEMOGLOBIN 14.4 g/dL (11.5-16.0); LYMPHOCYTES # (AUTO) 1.2 10^3/uL (1.0-4.0); LYMPHOCYTES % (AUTO) 12 % (12-44); MEAN CORPUSCULAR HEMOGLOBIN 31 pg (25-34); MEAN CORPUSCULAR HGB CONC 31 g/dL (32-36); MEAN CORPUSCULAR VOLUME 101 fL (80-99); MEAN PLATELET VOLUME 10.4 fL (9.0-12.2); MONOCYTES # (AUTO) 1.1 10^3/uL (0.0-1.0); MONOCYTES % (AUTO) 11 % (0-12); NEUTROPHILS # (AUTO) 7.8 10^3/uL (1.8-7.8); NEUTROPHILS % (AUTO) 76 % (42-75); PLATELET COUNT 177 10^3/uL (130-400); WHITE BLOOD COUNT 10.2 10^3/uL (4.3-11.0)
[2022-04-14 06:00] LABS: POTASSIUM 4.4 MMOL/L (3.6-5.0)
[2022-04-14] MEDS ORDERED: inSUlin ASPART (NovoLOG) 1 UNIT/0.01 ML (CHARGE PER UNIT) SC SCH (06:00)
[2022-04-14 06:01] LABS: CALCIUM 8.5 MG/DL (8.5-10.1)
[2022-04-14 06:05] LABS: CREATININE SERUM 1.87 MG/DL (0.60-1.30)
--- NOTE | 2022-04-14 10:23 | CONSULTATION REPORT ---
DATE OF SERVICE: 04/14/2022 ATTENDING PHYSICIAN: Dr. Ojeda. Dr. Huff. SUMMARY: A 76-year-old white lady admitted through the emergency room with severe left abdominal pain and acute renal injury secondary to a left proximal ureteral stone, 6 mm in size causing moderate hydro. She apparently has been battling this stone for a couple of weeks and maybe even two weeks prior to that where the pain hit and disappeared. This is her first stone. Dr. Cannon called me from the emergency room and we decided on admission, IV fluid hydration, probably creatinine secondary to also dehydration because of her vomiting and inability to take much p.o. fluids. I reviewed her medicine list, she is namely on Eliquis 5 mg b.i.d. and Plavix 75 mg daily. These were held yesterday. SOCIAL HISTORY: No smoking, no alcohol, no drugs. ALLERGIES: No known seasonal allergies. MEDICAL ILLNESSES: Insulin-dependent diabetes, atherosclerotic heart disease, hypertension. PAST SURGICAL HISTORY: She had a previous CABG, coronary stents, appendectomy, tonsillectomy and adenoidectomy, some bone surgery. FAMILY HISTORY: Diabetes and cancer of bladder in her mom. PHYSICAL EXAMINATION: VITAL SIGNS: Per chart. GENERAL: Well-nourished, well-developed, in no acute distress. She feels better today. Pain is controlled. She is hungry. Her creatinine this morning is down to 1.87. Her white count is stable. She definitely not septic. HEAD: Head is normocephalic. ENT: Unremarkable. NECK: Supple, no bruits. CHEST: Clear, nontender. HEART: Regular rate and rhythm. ABDOMEN: Soft. EXTREMITIES: Lower extremity, no edema or cyanosis. NEUROLOGIC: Grossly intact. Oriented x3. IMPRESSION: 1. Left proximal ureteral stone with acute kidney injury, improving. 2. Medical illnesses per history. PLAN: I reviewed her KUB this morning and the stone is still at L4, I presume the stone probably has been there for at least a couple of weeks that we know of. I had a lengthy discussion with the patient and her daughter of options. Ideally, the treatment of the stone will be by ESWL unless she pushed the stone down further, problem is that the machine is going to be here in couple of weeks. Other option if needed will be to do a stone manipulation with stent, possible ureteroscopy if amenable. She needs to be off the blood thinners for at least 2 to 3 days on Eliquis and 5 to 7 days for Plavix, so we will take one day at a time. We will go ahead and feed her, tried the p.o. medication for pain and if she tolerates the pain this way, we will see how she does tomorrow and decide accordingly. I explained to them as I told Dr. Cannon that I will be gone Monday and Monday, back here probably Monday evening if she needs something done urgently before coming back she will have to be transferred. Otherwise, if things continue progressing the way it is now and better then she probably can be handled on a more elective condition and off the blood thinners. CC: Dr. Burgess - requested, unable to deliver. CC: Dr. Ojeda - requested, unable to deliver. CC: Dr. Huff - requested, unable to deliver. Job ID: [id number] DocumentID: [id number] Dictated Date: 04/14/2022 09:15:21 Senior Counsel Commercial Date: 04/14/2022 10:23:14 Dictated By: MYESHA DAVIS MD
[2022-04-14] MEDS ORDERED: CETI10TA17 PO (12:34)
[2022-04-14] MEDS: inSUlin ASPART (NovoLOG) 1 UNIT/0.01 ML (CHARGE PER UNIT) SC SCH ×3 (12:41→20:58)
[2022-04-14] MEDS: HYDROcodone/APAP 5 MG/325 MG (LORTAB) TAB PO PRN ×2 (15:43→21:02)
--- NOTE | 2022-04-14 16:12 | History & Physical-Hospitalist ---
History of Present Illness HPI/Chief Complaint Tahmina Garcia (Tanny) is a 76 year old female who presented with abdominal pain. She has been having pain for a couple weeks. She also reports nausea. She denies fevers and chills. She denies back pain. She denies chest pain and shortness of breath. Source: patient Exam Limitations: no limitations Date Seen 04/14/22 Time Seen by a Provider: 10:50 Attending Physician Veronica Hargrove MD PCP Admitting Physician: Richy Ojeda MD Attending Physician: Richy Ojeda MD Referring Physician Date of Admission Apr 13, 2022 at 21:55 Home Medications & Allergies Home Medications Reviewed patient Home Medication Reconciliation performed by pharmacy medication reconciliations air traffic systems technician and/or nursing. Patients Allergies have been reviewed. Allergies Allergies Coded Allergies codeine (Unverified Allergy, Unknown, N/V, 12/19/21) propoxyphene HCl (Verified Adverse Reaction, Mild, NAUSEA, 12/19/21) Past Sazxbfe-Aimuzc-Oqpidc Hx Patient Social History Tobacco Use?: No Use of E-Cig and/or Vaping dev: No Substance use?: No Alcohol Use?: Yes Alcohol type: Wine Alcohol Frequency: Once in a while Pt feels they are or have been: No Immunizations Up To Date Date of Influenza Vaccine: Jul 22, 2020 First/Initial COVID19 Vaccinat: 12/05/20 Second COVID19 Vaccination Guille: 01/05/21 Tetanus Booster (TDap): Unknown Hepatitis A: Yes Hepatitis B: Yes Date of Pneumonia Vaccine: Jul 04, 2010 Seasonal Allergies Seasonal Allergies: No Current Status status: No status: No Advance Directives: Yes Advance Directive Location: Home Communicates: Verbally Primary Language: Taiwanese Preferred Spoken Language: Taiwanese Is interpretation needed?: No Sensory deficits: Hearing impairment Implanted or Applied Medical D: Stents Past Medical History Surgeries: CABG, Coronary Stent, Orthopedic Sleep Apnea Currently Using CPAP: Yes Currently Using BIPAP: No Coronary Artery Disease, Hypertension Sexually Transmitted Disease: No Diabetes, Insulin dep, Lupus Hearing Impairment: Hard of Hearing Blood Disorders: No Family Medical History Diabetes mellitus 19 FATHER G8 BROTHER Neoplasm 19 MOTHER ( with ca of bladder) No Pertinent Family Hx Review of Systems Constitutional: no symptoms reported EENTM: no symptoms reported Respiratory: no symptoms reported Cardiovascular: no symptoms reported Gastrointestinal: abdominal pain, nausea Genitourinary: no symptoms reported Musculoskeletal: no symptoms reported Physical Exam Physical Exam Vital Signs Vital Signs - First Documented 04/13/22 19:10 Temp 36.7 Pulse 81 Resp 16 B/P (MAP) 176/84 (114) Pulse Ox 95 O2 Delivery Room Air Capillary Refill : Less Than 3 Seconds Height, Weight, BMI Height: 5'7.00" Weight: 231lbs. 6.0oz. 104.966817ml; 32.52 BMI Method:Estimated General Appearance: No Apparent Distress, Obese HEENT: PERRL/EOMI, Pharynx Normal Neck: Normal Inspection, Supple Respiratory: Lungs Clear, No Respiratory Distress Cardiovascular: Regular Rate, Rhythm, No Murmur Gastrointestinal: Normal Bowel Sounds, Soft Extremity: Normal Inspection, No Pedal Edema Neurologic/Psychiatric: Alert, Normal Mood/Affect Skin: Normal Color, Warm/Dry Results Results/Procedures Labs Laboratory Tests 04/13/22 19:30 04/14/22 05:36 Patient resulted labs reviewed. Imaging: Reviewed Imaging Report Assessment/Plan Admission Diagnosis Hydroureteronephrosis due to ureterolithiasis Admission Status: Inpatient Order (span 2 midnights) Reason for Inpatient Admission: Obstructing ureteral stone Assessment and Plan Hydroureterolithiasis Ureterolithiasis Acute kidney injury Urology consulted IV fluids Advance diet Oral pain meds If worsens, may need transfer for intervention If stable, may discharge with outpatient follow up Monitor progress T2DM on insuin Levemir Sliding scale insulin AFib Hold Eliquis for possible intervention DVT prophylaxis: Lovenox Diagnosis/Problems Diagnosis/Problems (1) Hydroureteronephrosis Status: Acute (2) Ureterolithiasis Status: Acute (3) Acute kidney injury Status: Acute (4) Paroxysmal atrial fibrillation Status: Chronic (5) Obesity Status: Chronic ANDIE BARTON MD Apr 14, 2022 16:12
[2022-04-14] MEDS: ENOXAPARIN 40 MG/0.4 ML (LOVENOX) SYR SQ SCH (16:54)
[2022-04-14] MEDS: cefTRIAXone 1 GM/50 ML (PRE-MIX) IV SCH (21:02)
[2022-04-15] VITALS (7 sets, daily range): BP systolic 129–203; BP diastolic 60–87
[2022-04-15] MEDS: HYDROcodone/APAP 5 MG/325 MG (LORTAB) TAB PO PRN ×5 (00:02→19:53)
[2022-04-15] MEDS: LACTATED RINGERS 1,000 ML IV SCH ×4 (03:18→17:24)
[2022-04-15] MEDS: inSUlin ASPART (NovoLOG) 1 UNIT/0.01 ML (CHARGE PER UNIT) SC SCH ×4 (05:19→21:20)
[2022-04-15 05:46] LABS: BASOPHILS % (AUTO) 1 % (0-10); EOSINOPHILS # (AUTO) 0.2 10^3/uL (0.0-0.3); EOSINOPHILS % (AUTO) 4 % (0-10); HEMATOCRIT 37 % (35-52); HEMOGLOBIN 12.1 g/dL (11.5-16.0); LYMPHOCYTES # (AUTO) 1.5 10^3/uL (1.0-4.0); LYMPHOCYTES % (AUTO) 29 % (12-44); MEAN CORPUSCULAR HEMOGLOBIN 31 pg (25-34); MEAN CORPUSCULAR HGB CONC 33 g/dL (32-36); MEAN CORPUSCULAR VOLUME 94 fL (80-99); MONOCYTES # (AUTO) 0.6 10^3/uL (0.0-1.0); MONOCYTES % (AUTO) 11 % (0-12); NEUTROPHILS # (AUTO) 2.9 10^3/uL (1.8-7.8); NEUTROPHILS % (AUTO) 55 % (42-75); PLATELET COUNT 178 10^3/uL (130-400); WHITE BLOOD COUNT 5.2 10^3/uL (4.3-11.0)
[2022-04-15 06:06] LABS: POTASSIUM 4.4 MMOL/L (3.6-5.0)
[2022-04-15 06:07] LABS: CALCIUM 8.4 MG/DL (8.5-10.1)
[2022-04-15 06:11] LABS: CREATININE SERUM 1.64 MG/DL (0.60-1.30)
[2022-04-15] MEDS ORDERED: NON-FORMULARY MEDICATION 1 EA EA (Citalopram Hydrobromide (Citalopram HBr) 20 MG) PO SCH (09:00)
[2022-04-15] MEDS ORDERED: CETIRIZINE HCL (ZYRTEC) 10 MG TAB PO SCH (09:00)
[2022-04-15] MEDS ORDERED: LORATADINE (CLARITIN) 10 MG TAB PO SCH (09:00)
[2022-04-15] MEDS ORDERED: GABAPENTIN 100 MG (NEURONTIN) CAP PO SCH (09:00)
[2022-04-15] MEDS ORDERED: meTOprolol SUCCINATE 100 MG (TOPROL XL) TAB PO SCH (09:00)
--- NOTE | 2022-04-15 09:53 | Progress Note - Urology ---
Progress Note-Urology Progress Notes/Assess & Plan Progress/Assessment & Plan CONTINUES BETTER. PAIN CONTROLLED WITH ORAL ANALGESICS. LABS BETTER RECOMMENDATIONS 1. OK TO DC SPENCER ON FLOMAX, OXYCODONE, AND ABX, WELL STRAIN AND SAVE ANY STONE PASSED, 2. OFFICE NEXT WEEK WITH KUB PRIOR TO IT 3. KUB NOW 4. PLAN OR PER FINDINGS NEXT WEEK 5. ED PRN AND INTERVENTION IF NEEDED Final Diagnosis LT URETERAL STONE MYESHA DAVIS MD Apr 15, 2022 09:53
[2022-04-15] MEDS ORDERED: OXYC5TAB PO (10:29)
[2022-04-15] MEDS ORDERED: SULF1TAB38 PO (10:29)
[2022-04-15] MEDS ORDERED: TMSL.4C PO (10:29)
--- NOTE | 2022-04-15 11:15 | Diagnostic Imaging Report ---
Indication: Kidney stones. Time of Exam: 10:08 AM Correlation is made with prior radiograph from 04/13/2022. Previously noted calculus within the left ureter at the level of L4 is no longer present at this location. There are numerous calcifications in the pelvis and calculus may have progressed more distally in the left ureter. The bowel gas pattern is nonobstructed. IMPRESSION: Previously noted ureteral calculus on the left at the level of L4 appears to have progressed into the pelvis. Dictated by: Dictated on workstation # [id number]
--- NOTE | 2022-04-15 14:41 | Discharge Summary ---
Discharge Summary Hospital Course Was the Problem List Reviewed?: Yes Problems/Dx: (1) Hydroureteronephrosis Status: Acute (2) Ureterolithiasis Status: Acute (3) Acute kidney injury Status: Acute (4) Paroxysmal atrial fibrillation Status: Chronic (5) Obesity Status: Chronic Hospital Course Date of Admission: Apr 13, 2022 at 21:55 Admission Diagnosis: Hydroureteronephrosis due to ureterolithiasis, CORTNEY Family Physician/Provider: Veronica Darnell MD Date of Discharge: 04/15/22 Discharge Diagnosis: Hydroureteronephrosis due to ureterolithiasis, CORTNEY Hospital Course: Tahmina Garcia is a 76 year old female who was admitted with hydroureteronephrosis due to ureterolithiasis. She was found to have an obstructing stone in her ureter. Urology was consulted and assisted with her care. She was treated with IV fluids and pain meds. Her symptoms improved. She will follow up with Dr. Sosa next week. She needs to have a KUB prior to that visit. She was started on Flomax. She was given a prescription for Bactrim. She was given a prescription for Oxycodone. She was discharged home in stable condition. She was instructed to return with worsening symptoms. She needs to hold her Eliquis and Plavix for possible surgical intervention. Dr. Sosa will be unavailable to perform intervention over the weekend if her situation worsens and she would need to be sent to another facility. Labs and Pending Lab Test: Laboratory Tests 04/14/22 15:38: Glucometer 247H 04/14/22 20:42: Glucometer 166H 04/15/22 05:14: Glucometer 164H 04/15/22 05:20: White Blood Count 5.2, Red Blood Count 3.95, Hemoglobin 12.1, Hematocrit 37, Mean Corpuscular Volume 94, Mean Corpuscular Hemoglobin 31, Mean Corpuscular Hemoglobin Concent 33, Red Cell Distribution Width 14.6H, Platelet Count 178, Mean Platelet Volume 11.0, Immature Granulocyte % (Auto) 0, Neutrophils (%) (Auto) 55, Lymphocytes (%) (Auto) 29, Monocytes (%) (Auto) 11, Eosinophils (%) (Auto) 4, Basophils (%) (Auto) 1, Neutrophils # (Auto) 2.9, Lymphocytes # (Auto) 1.5, Monocytes # (Auto) 0.6, Eosinophils # (Auto) 0.2, Basophils # (Auto) 0.0, Immature Granulocyte # (Auto) 0.0, Sodium Level 138, Potassium Level 4.4, Chlor tyler Level 103, Carbon Dioxide Level 23, Anion Gap 12, Blood Urea Nitrogen 20H, Creatinine 1.64H, Estimat Glomerular Filtration Rate 32, BUN/Creatinine Ratio 12, Glucose Level 165H, Calcium Level 8.4L 04/15/22 10:25: Glucometer 294H Home Meds Active Oxycodone HCl 5 Mg Tablet 5 Mg PO Q4H PRN 7 Days Flomax (Tamsulosin HCl) 0.4 Mg Cap 0.4 Mg PO DAILY 14 Days Bactrim Ds Tablet (Sulfamethoxazole/Trimethoprim) 1 Each Tablet 1 Each PO BID 7 Days Reported Cetirizine HCl 10 Mg Tablet 10 Mg PO DAILY Multi-Vitamin Daily (Multivitamin) 1 Each Tablet 1 Each PO DAILY Furosemide 40 Mg Tablet 40 Mg PO Q48H Clopidogrel (Clopidogrel Bisulfate) 75 Mg Tablet 75 Mg PO DAILY Eliquis (Apixaban) 5 Mg Tablet 5 Mg PO BID Citalopram HBr (Citalopram Hydrobromide) 40 Mg Tablet 20 Mg PO DAILY TAKES 1/2 OF (40MG) TAB Metoprolol Succinate 100 Mg Tab.er.24h 100 Mg PO DAILY Metformin HCl 500 Mg Tablet 500 Mg PO BID Basaglar Kwikpen U-100 (Insulin Glargine,Hum.rec.anlog) 100 Unit/1 Ml Insuln.pen 64 Units SC DAILY Rybelsus (Semaglutide) 14 Mg Tablet 14 Mg PO DAILY Gabapentin 100 Mg Capsule 100 Mg PO DAILY Simvastatin 40 Mg Tablet 40 Mg PO HS Assessment/Pt Instructions See instructions Discharge Planning: >30 minutes discharge planning Discharge Instructions Discharge Diet: No Restrictions Activity as Tolerated: Yes Consultations Urology Discharge Physical Examination Vital Signs Vital Signs Date Time Temp Pulse Resp B/P (MAP) Pulse Ox O2 Delivery O2 Flow Rate FiO2 04/15/22 11:14 36.3 63 20 185/75 (111) 96 Room Air General Appearance: No Apparent Distress, WD/WN HEENT: PERRL/EOMI, Pharynx Normal Respiratory: Lungs Clear, Normal Breath Sounds, No Respiratory Distress Cardiovascular: Regular Rate, Rhythm, No Murmur Gastrointestinal: Normal Bowel Sounds, Soft Extremity: Normal Inspection, Non Tender, No Pedal Edema Skin: Normal Color, Warm/Dry Neurologic/Psychiatric: Alert, Normal Mood/Affect Allergies: Coded Allergies: codeine (Unverified Allergy, Unknown, N/V, 12/19/21) propoxyphene HCl (Verified Adverse Reaction, Mild, NAUSEA, 12/19/21) Copy Copies To 1: VERONICA DARNELL MD Discharge Summary Date of Admission Apr 13, 2022 at 21:55 Date of Discharge Discharge Date: Apr 15, 2022 Discharge Time: 14:40 Admission Diagnosis Hydroureteronephrosis due to ureterolithiasis Discharge Diagnosis Hydroureterolithiasis Ureterolithiasis Acute kidney injury (1) Hydroureteronephrosis Status: Acute (2) Ureterolithiasis Status: Acute (3) Acute kidney injury Status: Acute (4) Paroxysmal atrial fibrillation Status: Chronic (5) Obesity Status: Chronic ANDIE BARTON MD Apr 15, 2022 14:40
[2022-04-15] MEDS: ENOXAPARIN 40 MG/0.4 ML (LOVENOX) SYR SQ SCH ×2 (16:51→17:48)
[2022-04-15] MEDS ORDERED: hydrALAZINE (APESOLINE) 20 MG/ML VIAL IV PRN (17:15)
[2022-04-15] MEDS: fentaNYL INJ 100 MCG/2 ML AMP IV PRN (17:30)
[2022-04-15] MEDS: ONDANSETRON 4 MG/2 ML (SDV) Z0FRAN IV PRN (18:49)
[2022-04-15] MEDS: cefTRIAXone 1 GM/50 ML (PRE-MIX) IV SCH (19:53)
== END 2022-04-15 22:10 | disposition short-term general hospital (02) | DRG 694 ==
LOC: EDUNIT# 18:58 → ER 19:00 → 4TH 21:55
PROVIDERS: ADMIT Internal Medicine; ATTEND Internal Medicine
DX: N13.2 Hydronephrosis with renal and ureteral calculous obstruction (principal); N17.9 Acute kidney failure, unspecified; E86.0 Dehydration; I25.10 Atherosclerotic heart disease of native coronary artery without angina pectoris; I10 Essential (primary) hypertension; I48.0 Paroxysmal atrial fibrillation; E11.9 Type 2 diabetes mellitus without complications; E66.9 Obesity, unspecified; Z68.32 Body mass index [BMI] 32.0-32.9, adult; H91.90 Unspecified hearing loss, unspecified ear; Z95.5 Presence of coronary angioplasty implant and graft; Z95.1 Presence of aortocoronary bypass graft; Z79.01 Long term (current) use of anticoagulants; Z79.84 Long term (current) use of oral hypoglycemic drugs; Z79.02 Long term (current) use of antithrombotics/antiplatelets; Z79.4 Long term (current) use of insulin; Z83.3 Family history of diabetes mellitus
CPT/HCPCS: 36415; 74018; 74176; 80048; 80053; 81000; 82947; 83690; 85025; 86141

== ENCOUNTER → 2022-04-21 | Outpatient (CLI) | payer MEDICARE, OTHER ==
[~2022-04-21] MED LIST changes: +CETI10TA17 PO; +KETO10TA PO; +NITR-65 PO; +OXYC5TAB PO; +SULF1TAB38 PO; +TMSL.4C PO
--- NOTE | 2022-04-21 18:29 | Diagnostic Imaging Report ---
INDICATION: LEFT URETERAL STONE. TECHNIQUE: Single view of the abdomen 5:13 PM CORRELATION STUDY: 04/15/2022 FINDINGS: Left ureteral stent has been placed. The proximal loop projects over the expected location of the renal silhouette and distal loop at the level of the urinary bladder. The overlying bowel gas pattern demonstrates moderate stool retention. Gas-distention of stomach. Advanced degenerative changes of the lumbar spine. Vascular calcifications are present. IMPRESSION: 1. Left-sided ureteral stent has been placed. Dictated by: Dictated on workstation # [id number]
== END ==
LOC: RAD 16:57
PROVIDERS: ATTEND Urology
DX: N20.1 Calculus of ureter (principal); Z96.0 Presence of urogenital implants
CPT/HCPCS: 74018

== ENCOUNTER 2022-04-25 05:36 | Outpatient (CLI) | payer MEDICARE, OTHER ==
[~2022-04-25] VITALS: Ht 175 cm; Wt 90.9 kg
[~2022-04-25 05:36] MED LIST changes: -KETO10TA PO; -NITR-65 PO
[2022-04-26] MEDS ORDERED: KETO10TA PO (10:38)
[2022-04-26] MEDS ORDERED: TMSL.4C PO (10:38)
[2022-04-26] MEDS ORDERED: NITR-65 PO (10:38)
== END 2022-04-25 09:45 ==
LOC: PREOP 05:36
PROVIDERS: ATTEND Urology
DX: Z01.818 Encounter for other preprocedural examination (principal)

== ENCOUNTER 2022-04-26 07:07 | Day surgery (SDC) | payer MEDICARE, OTHER ==
[2022-04-26] VITALS (11 sets, daily range): BP systolic 132–158; BP diastolic 73–84
[~2022-04-26] VITALS: Ht 175 cm; Wt 90.9 kg
--- NOTE | 2022-04-26 07:18 | Progress Note-Pre Operative ---
Pre-Operative Progress Note H&P Reviewed The H&P was reviewed, patient examined and no changes noted. Date Seen by Provider: Apr 26, 2022 Time Seen by Provider: 08:00 Date H&P Reviewed: Apr 26, 2022 Time H&P Reviewed: 08:00 Pre-Operative Diagnosis: LT DISTAL URETERAL STONE MYESHA DAVIS MD Apr 26, 2022 07:18
[2022-04-26] MEDS ORDERED: cefTRIAXone 1 GM PRE-MIX 50 ML IV ONE (07:30)
[2022-04-26] MEDS ORDERED: LACTATED RINGERS 1,000 ML IV PRN (07:30)
--- NOTE | 2022-04-26 08:03 | Diagnostic Imaging Report ---
Indication: Pre-lithotripsy, renal stones COMPARISON: 04/21/[address] dated 04/13/2022 FINDINGS: Surgical clips overlying the right upper abdomen. Left-sided ureteral stent is again identified, appearing stable. A 5 mm calculus is abutting the distal left ureteral stent within the left pelvis. Additional phleboliths are present within the lower pelvis. Nonobstructive bowel gas pattern. No free air. Background vascular calcifications. No acute osseous abnormality. IMPRESSION: Left-sided ureteral stent is in place with 5 mm calcification abutting the distal left ureter which may relate to a ureterolith. Dictated by: Dictated on workstation # [id number]
[2022-04-26] MEDS ORDERED: fentaNYL INJ 100 MCG/2 ML AMP ONE (08:46)
--- NOTE | 2022-04-26 09:02 | Progress Note-Post Operative ---
Post-Operative Progess Note Surgeon (s)/Chromium Plater (s) Surgeon MYESHA DAVIS MD Chromium Plater: NONE Pre-Operative Diagnosis LT DISTAL URETERAL STONE Post-Operative Diagnosis SAME Procedure & Operative Findings Date of Procedure 04/26/22 Procedure Performed/Findings LT ESWL Anesthesia Type GENERAL Estimated Blood Loss Estimated blood loss (mL): NONE Specimens/Packing Specimens Removed NONE Packing: NONE MYESHA DAVIS MD Apr 26, 2022 09:02
--- NOTE | 2022-04-26 09:05 | Discharge Inst-Urology ---
Discharge Inst-Urology Reconcile Patient Problems Problems Reviewed?: Yes Final Diagnosis LT DISTAL URETERAL STONE Patient Instructions/Follow Up Plan/Assessment/Instructions Please make appointment to been seen in office Wednesday 05/09, KUB prior to it. KUB on way home Post ESWL instructions In 72 hours, if no bleeding, may resume Eliquis and Plavix Increase oral fluids for 48 hours and then as needed. Diet and Activity as tolerated. If questions or concerns contact your physician Or seek help at emergency department. MYESHA DAVIS MD Apr 26, 2022 09:05
[2022-04-26] MEDS ORDERED: FUROSEMIDE 40 MG/4 ML INJ (LASIX) ONE (09:24)
[2022-04-26] MEDS ORDERED: KETOROLAC 30 MG/ML VIAL ONE (09:24)
[2022-04-26] MEDS ORDERED: SEVOFLURANE (ULTANE) 15 ML INHAL SOLN ONE (09:28)
[2022-04-26] MEDS ORDERED: ONDANSETRON 4 MG/2 ML (SDV) Z0FRAN ONE (09:44)
[2022-04-26] MEDS ORDERED: proPOfol 200 MG/20 ML (DIPRIVAN) VIAL IV ONE (09:44)
[2022-04-26] MEDS ORDERED: LIDOCAINE PF 2% 5 ML (XYLOCAINE) VIAL ONE (09:44)
[2022-04-26] MEDS ORDERED: NITR-65 PO (10:38)
[2022-04-26] MEDS ORDERED: TMSL.4C PO (10:38)
[2022-04-26] MEDS ORDERED: KETO10TA PO (10:38)
--- NOTE | 2022-04-26 12:15 | Diagnostic Imaging Report ---
INDICATION: Post lithotripsy, stones. COMPARISON: Imaging from the same date TECHNIQUE: 2 radiographs of the abdomen dated 04/26/2022 FINDINGS: Surgical clips are again noted overlying the right upper abdomen. A left-sided ureteral stent is again identified in place. Previously noted calcification abutting the distal left ureteral stent is not as well visualized. Additional calcifications overlying the right renal shadow are again identified and stable. Additional calcifications overlying the pelvis are unchanged. Nonobstructive bowel gas pattern. No free air. Background vascular calcifications. Surgical clips overlying left inguinal region. IMPRESSION: Left ureteral stent in place with previously noted calcification abutting the distal left ureteral stent not well visualized. Additional stable findings as above. Dictated by: Dictated on workstation # [id number]
--- NOTE | 2022-04-26 13:38 | OPERATIVE REPORT ---
DATE OF SERVICE: 04/26/2022 PREOPERATIVE DIAGNOSIS: Left distal ureteral stone. POSTOPERATIVE DIAGNOSIS: Left distal ureteral stone. OPERATION PERFORMED: Left ESWL. SURGEON: Korey Davis MD ANESTHESIA: General. COMPLICATIONS: None. DESCRIPTION OF PROCEDURE: Under satisfactory general anesthesia, the patient in a supine position on the ESWL table, the left distal ureteral stone was localized. Shocks were delivered at kV of 6, a total of 3000 shocks completely fragmented the stone that was hardly visualized. The patient received 40 mg of Lasix and 15 mg of Toradol IV at the end of the procedure. She tolerated the procedure and anesthesia well and was sent to recovery room in stable condition. Job ID: [id number] DocumentID: [id number] Dictated Date: 04/26/2022 09:25:25 Intelligence Analyst Date: 04/26/2022 13:38:25 Dictated By: KOREY DAVIS MD
== END 2022-04-26 11:53 | disposition home or self-care (01) ==
LOC: SDC 07:07
PROVIDERS: ATTEND Urology
DX: N20.1 Calculus of ureter (principal); E11.9 Type 2 diabetes mellitus without complications; G47.33 Obstructive sleep apnea (adult) (pediatric); Z95.1 Presence of aortocoronary bypass graft; Z95.5 Presence of coronary angioplasty implant and graft; Z79.4 Long term (current) use of insulin; Z79.01 Long term (current) use of anticoagulants; Z79.84 Long term (current) use of oral hypoglycemic drugs; Z88.5 Allergy status to narcotic agent
CPT/HCPCS: 74018; 82947; 87081

== ENCOUNTER → 2022-05-09 | Outpatient (CLI) | payer MEDICARE, OTHER ==
[~2022-05-09] MED LIST changes: +KETO10TA PO; +NITR-65 PO
--- NOTE | 2022-05-09 15:38 | Diagnostic Imaging Report ---
INDICATION: Followup kidney stones. TIME OF EXAM: 2:29 PM. COMPARISON: Correlation is made with the prior radiograph from 04/26/2022. FINDINGS: The left-sided double-J nephroureteral stent remains in place. There are some calcific densities along the distal aspect of the stent. Calcific densities overlie the right renal shadow, unchanged. The bowel gas pattern is nonobstructed. IMPRESSION: Left-sided stent. There are some calcific densities along the distal aspect of the stent in the region of the distal left ureter. Dictated by: Dictated on workstation # [id number]
== END ==
LOC: RT 14:14
PROVIDERS: ATTEND Urology
DX: N20.2 Calculus of kidney with calculus of ureter (principal); Z96.0 Presence of urogenital implants
CPT/HCPCS: 74018

== ENCOUNTER 2023-05-30 11:18 | Outpatient (RCR) | payer MEDICARE, OTHER ==
[~2023-05-30 11:18] MED LIST changes: +LEVO250T66; -LVF250T
== END 2023-06-01 | disposition home or self-care (01) ==
PROVIDERS: ATTEND Family Medicine
DX: M54.2 Cervicalgia (principal); M40.209 Unspecified kyphosis, site unspecified; I11.9 Hypertensive heart disease without heart failure; I50.9 Heart failure, unspecified; E11.9 Type 2 diabetes mellitus without complications

== ENCOUNTER 2023-06-16 10:41 | Outpatient (RCR) | payer MEDICARE, OTHER | END 2023-06-16 17:00 | disposition home or self-care (01) | PROVIDERS: ATTEND Family Medicine | DX: M54.2 Cervicalgia (principal); M40.209 Unspecified kyphosis, site unspecified ==